=== PATIENT | female | born 1985 | race Caucasian/White ===

== ENCOUNTER 2023-07-10 11:46 | Outpatient (REF) | payer BC, SELFPAY ==
[2023-07-17 13:11] LABS: Age Gdln ACOG Testing Note (.); HPV Aptima Negative (Negative); IGP, Aptima HPV, rfx 16/18,45 Note (.)
== END 2023-07-11 11:47 | disposition home or self-care (01) ==
LOC: LAB 11:46
PROVIDERS: PCP Family Medicine; Visit Provider Obstetrics & Gynecology
DX: R87.612 Low grade squamous intraepithelial lesion on cytologic smear of cervix (LGSIL) (principal)
CPT/HCPCS: 87624; G0145

== ENCOUNTER 2023-12-04 21:07 | Outpatient (REF) | payer OTHER, SELFPAY ==
[2023-12-11 13:07] LABS: Age Gdln ACOG Testing Note (.); HPV Aptima Negative (Negative); IGP, Aptima HPV, rfx 16/18,45 Note (.)
== END 2023-12-04 21:08 | disposition home or self-care (01) ==
LOC: LAB 21:07
PROVIDERS: PCP Family Medicine; Visit Provider Obstetrics & Gynecology
DX: Z01.419 Encounter for gynecological examination (general) (routine) without abnormal findings (principal); R87.610 Atypical squamous cells of undetermined significance on cytologic smear of cervix (ASC-US)
CPT/HCPCS: 87624; G0145

== ENCOUNTER 2024-06-24 19:43 | Outpatient (REF) | payer OTHER, SELFPAY ==
--- OUTSIDE RECORDS SUMMARY | 2024-06-24 19:47 | XMS_ITS | CCD ---
Author Organization [facility] Care Team Providers Care Ash Handler Name Role Phone Fabio LEDESMA, Tamera Schrader Primary Care Provider [phone] FABIO, DR FUNES Primary Care Unavailable JANET ., DR BARRIENTOS Admitting Unavailable JANET ., DR BARRIENTOS Consulting Unavailable JANET ., DR BARRIENTOS Attending Unavailable FABIO, DR FUNES Primary Care Unavailable JANET ., DR BARRIENTOS Admitting Unavailable JANET ., DR BARRIENTOS Consulting Unavailable AJNET ., DR BARRIENTOS Attending Unavailable TORSTEN BERKOWITZ Attending Unavailable GORDON ROGERS Referring Unavailab TAMERA Rosenberg Primary Care Unavailable Tamera Mccarthy MD Primary Care Provider [phone] FANI ABEBE Referring Unavailable FABIO [facility] Primary Care Unavailable FABIO [facility] Referring Unavailable FLOYD GONZALES Attending Unavailable GORDON ROGERS Attending Unavailab GORDON Metcalf Referring Unavailab GORDON Metcalf Referring Unavailab ASIYA Valero Attending Unavailable MARLA VIDES Attending Unavailable Medications Current Medications Medication Drug Class(es) Dates Sig (Normalized) Sig (Original) baclofen 20 mg oral tablet (2 sources) gamma-Aminobutyri c Acid-ergic Agonist Start: 03-16-2019 take 1 tablet by mouth twice daily baclofen (LIORESAL) 20 MG tablet Take 1 tablet by mouth 2 times daily 20 tablet 0 03/16/2019 Active Start: 06-20-2018 take 1 tablet by jagdish th once daily as needed for muscle spasms Baclofen 5 MG TABS Indications: Arthralgia of left temporomandibular joint Take 5 mg by mouth nightly as needed (spasm) 20 tablet 0 06/20/2018 Active calcium carbonate 500 mg chewable tablet (1 source) calcium carbonat e (TUMS) 200 mg elemental (500 mg) chewable tablet Chew 1 tablet (200 mg total) and swallow in the morning. 0 Active dicyclomine hydrochloride 10 mg oral capsule (1 source) Anticholinergic Start: 4 take 1 capsule by mouth four times daily before mealtime dicyclomine (BENTYL) 10 mg capsule Indications: Irritable bowel syndrome, unspecified type Take 1 capsule (10 mg total) by mouth 4 (four) times a day before meals and nightly. 60 capsule 1 02/08/2024 Active Problems Problem Classification Problem Date Documented Da te Episodic/Chronic Abdominal pain (1 source) Abdominal pain Onset: 4 Episodic Cancer of other female genital organs (2 sources) Atypical squamous cells of undetermined significance on cytologic smear of vagina (ASC-US); Translations: [Low grade squamous intraepithelial lesion on cytologic smear of vagina (LGSIL)] Onset: 2 Episodic Esophageal disorders (1 source) Gastroesophageal reflux disease; Translations: [Gastro-esophageal reflux disease without esophagitis] 02-08-2024 Chronic Fever of unknown origin (1 source) Fever, unspecified; Translations: [Fever, unspecified] Onset: 4 Episodic Immunizations and screening for infectious disease (5 sources) Encounter for screening for human papillomavirus (HPV); Translations: [ENC SCREENING HUMAN PAPILLOMAVIRUS] Onset: 2 Episodic Other gastrointestinal disorders (1 source) Irritable bowel syndrome; Translations: [Irritable bowel syndrome without diarrhea] 02-08-2024 Chronic Other gastrointestinal disorders (1 source) Heartburn Onset: 4 Episodic Other gastrointestinal disorders (1 source) Abdominal bloating; Translations: [Abdominal distension (gaseous)] 02-08-2024 Episodic Other screening for suspected conditions (not mental disorders or infectious disease) (4 sources) Encounter for screening for malignant neoplasm of cervix; Translations: [ENC SCREENING MALIG NEOPLASM CERV] Onset: 3 Episodic Unclassified (1 source) BOWEL CHANGES Onset: 4 Unclassified (1 source) Bloated Onset: 4 Results Test Name Value Interpretation Reference Range Facility CBC with Diffon 05-01-2024 Abs. Basophil <0.03 Normal 0.00-0.20 [facility] Comment on above: Performed By: #### C P, CDP #### [address] [place] [address] Mucking Machine Operator: Kendrick Elena MD Abs. Eosinophil <0.03 Normal 0.00-0.44 [facility] Comment on above: Performed By: #### C P, CDP #### [address] [place], [place] [address] Mucking Machine Operator: Kendrick Elena MD Abs.Imm.Granulocyte <0.03 Normal 0.00-0.30 [facility] Comment on above: Performed By: #### C P, CDP #### [address] [place] [address] Mucking Machine Operator: Kendrick Elena MD Abs.Neutrophil (Seg) 6.60 k/uL Normal 1.50-8.10 [facility] Comment on above: Performed By: #### C P, CDP #### [address] [place] [id number] Mucking Machine Operator: Kendrick Elena MD Basophils/100 WBC (Bld) 0 % Normal 0-2 [facility] Comment on above: Performed By: #### C P, CDP #### [address] [place], [facility] Mucking Machine Operator: Kendrick Elena MD Eosinophils/100 WBC (Bld) 0 % Low 1-4 [facility] Comment on above: Performed By: #### C P, CDP #### [address] [place] [address] Mucking Machine Operator: Kendrick Elena MD Erythrocyte distribution width (RBC) [Ratio] 12.3 % Normal 11.8-14.4 [facility] Comment on above: Performed By: #### C P, CDP #### [place] [address] [place], [place] [id number] Mucking Machine Operator: Kendrick Elena MD Hematocrit (Bld) [Volume fraction] 40.7 % Normal 36.3-47.1 [facility] Comment on above: Performed By: #### C P, CDP #### [facility] [address] [place], [place] [phone] Mucking Machine Operator: Kendrick Elena MD Hemoglobin (Bld) [Mass/Vol] 13.9 g/dL Normal 11.9-15.1 [facility] Comment on above: Performed By: #### C P, CDP #### [address] [place], [place] [id number] Mucking Machine Operator: Kendrick Elena MD Immature granulocytes/100 WBC (Bld) 0 % Normal 0 [facility] Comment on above: Performed By: #### C P, CDP #### [address] [place], [facility] Mucking Machine Operator: Kendrick Elena MD Lymphocytes (Bld) [#/Vol] 1.29 10*3/uL Normal 1.10-3.70 [facility] Comment on above: Performed By: #### C P, CDP #### [address] [place], [facility] Mucking Machine Operator: Kendrick Elena MD Lymphocytes/100 WBC (Bld) 15 % Low 24-43 [facility] Comment on above: Performed By: #### C P, CDP #### [facility] [address] [place], [facility] Mucking Machine Operator: Kendrick Elena MD MCH (RBC) [Entitic mass] 32.0 pg Normal 25.2-33.5 [facility] Comment on above: Performed By: #### C P, CDP #### [address] [place], [facility] Mucking Machine Operator: Kendrick Elena MD MCHC (RBC) [Mass/Vol] 34.2 g/dL Normal 28.4-34.8 [facility] Comment on above: Performed By: #### C P, CDP #### [facility] [address] [place], [place] [phone] Mucking Machine Operator: Kendrick Elena MD MCV (RBC) [Entitic vol] 93.6 fL Normal 82.6-102.9 [facility] Comment on above: Performed By: #### C P, CDP #### [facility] [address] [place] [address] Mucking Machine Operator: Kendrick Elena MD Monocytes (Bld) [#/Vol] 0.71 10*3/uL Normal 0.10-1.20 [facility] Comment on above: Performed By: #### C P, CDP #### [address] [place], [place] [phone] Mucking Machine Operator: Kendrick Elena MD Monocytes/100 WBC (Bld) 8 % Normal 3-12 [facility] Comment on above: Performed By: #### C P, CDP #### [address] [place], [place] [phone] Mucking Machine Operator: Kendrick Elena MD Neutrophil (Seg) 77 % High 36-65 [facility] Comment on above: Performed By: #### C P, CDP #### [address] [place], [place] [phone] Mucking Machine Operator: Kendrick Elena MD NRBC Automated 0.0 per 100 WBC Normal 0.0 [facility] Comment on above: Performed By: #### C P, CDP #### [facility] [address] [place] [address] Mucking Machine Operator: Kendrick Elena MD Platelet mean volume (Bld) [Entitic vol] 9.9 fL Normal 8.1-13.5 [facility] Comment on above: Performed By: #### C P, CDP #### [facility] [address] [place], [place] [phone] Mucking Machine Operator: Kendrick Elena MD Platelets (Bld) [#/Vol] 232 10*3/uL Normal 138-453 [facility] Comment on above: Performed By: #### C P, CDP #### [facility] [address] [place], [place] [phone] Mucking Machine Operator: Kendrick Elena MD RBC (Bld) [#/Vol] 4.35 10*6/uL Normal 3.95-5.11 [facility] Comment on above: Performed By: #### C P, CDP #### [facility] [address] [place], [place] [phone] Mucking Machine Operator: Kendrick Elena MD WBC (Bld) [#/Vol] 8.7 10*3/uL Normal 3.5-11.3 [facility] Comment on above: Performed By: #### C P, CDP #### [facility] [address] [place], [place] [phone] Mucking Machine Operator: Kendrick Elena MD Comp Metabolic Profon 2023 Albumin [Mass/Vol] 4.3 g/dL Normal 3.5-5.2 [facility] Comment on above: Performed By: #### C P, CDP #### [facility] [address] [place], [place] [phone] Mucking Machine Operator: Kendrick Elena MD Albumin/Glob Ratio 1.6 Normal 1.0-2.5 [facility] Comment on above: Performed By: #### C P, CDP #### [facility] [address] [place] [address] Mucking Machine Operator: Kendrick Elena MD Alkaline Phos 54 U/L Normal 35-104 [facility] Comment on above: Performed By: #### C P, CDP #### [facility] [address] [place], [place] [phone] Mucking Machine Operator: Kendrick Elena MD ALT [Catalytic activity/Vol] 14 U/L Normal 5-33 [facility] Comment on above: Performed By: #### C P, CDP #### [facility] [address] [place], [place] [address] Mucking Machine Operator: Kendrick Elena MD Anion gap [Moles/Vol] 9 mmol/L Normal 9-17 [facility] Comment on above: Performed By: #### C P, CDP #### [facility] [address] [place], [place] [phone] Mucking Machine Operator: Kendrick Elena MD AST [Catalytic activity/Vol] 16 U/L Normal <32 [facility] Comment on above: Performed By: #### C P, CDP #### [facility] [address] [place], [place] [phone] Mucking Machine Operator: Kendrick Elena MD Bilirubin [Mass/Vol] 0.9 mg/dL Normal 0.3-1.2 [facility] Comment on above: Performed By: #### C P, CDP #### [facility] [address] [place], [place] [phone] Mucking Machine Operator: Kendrick Elena MD BUN/CRE Ratio 11 Normal 9-20 [facility] Comment on above: Performed By: #### C P, CDP #### [facility] [address] [place], [place] [phone] Mucking Machine Operator: Kendrick Elena MD Calcium [Mass/Vol] 9.0 mg/dL Normal 8.6-10.4 [facility] Comment on above: Performed By: #### C P, CDP #### [facility] [address] [place], [place] [phone] Mucking Machine Operator: Kendrick Elena MD Chloride [Moles/Vol] 102 mmol/L Normal 98-107 [facility] Comment on above: Performed By: #### C P, CDP #### [facility] [address] [place] [address] Mucking Machine Operator: Kendrick Elena MD CO2 [Moles/Vol] 29 mmol/L Normal 20-31 [facility] Comment on above: Performed By: #### C P, CDP #### [facility] [address] [place] [address] Mucking Machine Operator: Kendrick Elena MD Creatinine [Mass/Vol] 0.9 mg/dL Normal 0.5-0.9 [facility] Comment on above: Performed By: #### C P, CDP #### [facility] [address] [place] [address] Mucking Machine Operator: Kendrick Elena MD GFR/1.73 sq M.predicted among non-blacks MDRD (S/P/Bld) [Vol rate/Area] 82 mL/min/{1.73_m2} Normal >60 [facility] Comment on above: Result Comment: These results are not intended for use in patients <18 years of age. eGFR results are calculated without a race factor using the 2020 CKD-EPI equation. Careful clinical correlation is recommended, particularly when comparing to results calculated using previous equations. The CKD-EPI equation is less accurate in patients with extremes of muscle mass, extra-renal metabolism of creatine, excessive creatine ingestion, or following therapy that affects renal tubular secretion. Performed By: #### C P, CDP #### [facility] [address] [place] [address] Mucking Machine Operator: Kendrick Elena MD Glucose [Mass/Vol] 100 mg/dL High 70-99 [facility] Comment on above: Performed By: #### C P, CDP #### [facility] [address] [place] [address] Mucking Machine Operator: Kendrick Elena MD Potassium [Moles/Vol] 4.2 mmol/L Normal 3.7-5.3 [facility] Comment on above: Performed By: #### C P, CDP #### [facility] [address] [place] [address] Mucking Machine Operator: Kendrick Elena MD Protein [Mass/Vol] 7.0 g/dL Normal 6.4-8.3 [facility] Comment on above: Performed By: #### C P, CDP #### [facility] [address] [place] [address] Mucking Machine Operator: Kendrick Elena MD Sodium [Moles/Vol] 140 mmol/L Normal 135-144 [facility] Comment on above: Performed By: #### C P, CDP #### [facility] [address] [place] [address] Mucking Machine Operator: Kendrick Elena MD Urea nitrogen [Mass/Vol] 10 mg/dL Normal 6-20 [facility] Comment on above: Performed By: #### C P, CDP #### [facility] [address] [place] [address] Mucking Machine Operator: Kendrick Elena MD CT [facility] ABDOMEN PELVIS WO IV CONTRAST EXAM: CT ABDOMEN PELVIS WO IV CONTRAST History: RLQ abdominal pain; history of IBS Technique: Multiple contiguous axial images were obtained of the abdomen and pelvis from the level of the lung bases through the ischial tuberosities without IV contrast. Oral contrast was administered. Multiplanar reformats were obtained. All CT scans at this facility use dose modulation, iterative reconstruction, and/or weight based dosing when appropriate to reduce radiation dose to as low as reasonably achievable. Comparison: CT abdomen pelvis August 28, 2022 Findings: Lung bases are clear. Lack of intravenous contrast precludes optimal evaluation of the abdominal and pelvic viscera. The unenhanced liver, gallbladder, spleen, stomach, pancreas, and adrenal glands appear within normal limits. The unenhanced kidneys appear within normal limits. No urinary tract calculi or hydronephrosis. Urinary bladder is well distended. The uterus is absent. Abdominal aorta is nonaneurysmal. No retroperitoneal or abdominal/pelvic lymphadenopathy. No small bowel obstruction. No overt colonic mass or pericolonic inflammation. No findings of acute appendicitis. No free fluid or free air. No acute osseous abnormality. IMPRESSION: No acute abdominopelvic process. ELECTRONICALLY SIGNED BY: Heri Kern DO Normal Not Available XR ABDOMEN 2 VIEWon 01-17-20 24 XR ABDOMEN 2 VIEW EXAM: XR ABDOMEN 2 VIEW DATE: 01/17/2024 3:39 PM CLINICAL HISTORY: RLQ pain, right flank pain. COMPARISON: Abdominal series with chest 03/18/2021. TECHNIQUE: Three supine radiographs of the abdomen and pelvis were obtained. FINDINGS: A few small rounded calcifications in the pelvis are consistent with phleboliths, unchanged from 03/18/2021. There is no evidence of obstruction, significant constipation, abnormal bowel dilatation, pneumoperitoneum, or other pathologic calcifications identified. The visualized lung bases are clear. IMPRESSION: NO ACUTE OR SIGNIFICANT CHANGE FROM 03/18/2021 IDENTIFIED. ELECTRONICALLY SIGNED BY: Zenon Lloyd MD Normal Not Available BI MAMMOGRAM SCREENING TOMOS YNTHESIS BILATERALon 11-22-2023 BI MAMMOGRAM SCREENING TOMOSYNTHESIS BILATERAL This is a summary report. The complete report is available in the patient's medical record. If you cannot access the medical record, please contact the sending organization for a detailed fax or copy. EXAMINATION: BI MAMMOGRAM SCREENING TOMOSYNTHESIS BILATERAL CLINICAL HISTORY: screening COMPARISON: November 17, 2022 . RESULT: Digital mammography and 3D tomosynthesis of bilateral breasts was performed. There are scattered areas of fibroglandular density. There is no suspicious mass, asymmetry, architectural distortion, or calcification. Overall appearance stable. IMPRESSION: BIRADS 1 - Negative. Follow-up: Routine Screening Mamm . Board Certified Radiologists. Accredited by the ACR and FDA. MAMMOGRAPHY IS VERY IMPORTANT TO YOUR HEALTH. THE [employer] GUIDELINES RECOMMEND THAT WOMEN 40 YEARS OF AGE AND OLDER SHOULD HAVE A MAMMOGRAM EVERY YEAR. A REMINDER LETTER WILL BE SENT AT THE APPROPRIATE TIME. THIS FACILITY UTILIZES A REMINDER SYSTEM TO ENSURE ALL PATIENTS RECEIVE REMINDER NOTIFICATIONS AT THE APPROPRIATE TIME BASED ON THE RECOMMENDATIONS OF THIS EXAM. THIS INCLUDES REMINDERS FOR ROUTINE SCREENING MAMMOGRAMS, DIAGNOSTIC MAMMOGRAMS IN WHICH THE PATIENT IS ASKED TO RETURN FOR ADDITIONAL VIEWS, OR OTHER BREAST IMAGING INTERVENTIONS WHEN APPROPRIATE. THE PATIENT WILL BE PLACED IN THE APPROPRIATE REMINDER SYSTEM INCLUDING A REMINDER AT THE APPROPRIATE TIME FOR ANY PENDING ADDITIONAL VIEWS. TRANSCRIBED BY: ELECTRONICALLY SIGNED BY: Kuldip Mccormick MD Normal Not Available Pap IG, rfx Aptima HPV, rfx 16/18,45on 01-16-2023 . . Normal [facility] Comment on above: Result Comment: Perf ormed at: WB Performed By: #### P APHR2A #### [facility] [address] [place] [address] [address] Mat Stokes DIAGNOSIS: Comment Abnormal [facility] Comment on above: Result Comment: EPIT HELIAL CELL ABNORMALITY. LOW GRADE SQUAMOUS INTRAEPITHELIAL LESION (LSIL). Performed at: WB Performed By: #### P APHR2A #### [facility] [address] [place] [address] [address] Mat Stokes Electronically signed by: Comment Normal [facility] Comment on above: Result Comment: Marci Clinton MD, Pathologist Performed at: WB Performed By: #### P APHR2A #### [facility] [address] [place] [address] [address] Mat Stokes HPV Aptima Negative Normal Negative [facility] Comment on above: Result Comment: This nucleic acid amplification test detects fourteen high-risk HPV types (16,18,31,33,35,39,45,51,52,56,58,59,66,68) without differentiation. Performed at: =G Performed By: #### P APHR2A #### [facility] [address] [place] [address] [address] Mat Stokes HPV Genotype Reflex Comment Normal [facility] Comment on above: Result Comment: Crit eria not met, HPV Genotype not performed. Performed at: WB Performed By: #### P APHR2A #### [facility] [address] [place] [address] [address] Mat Stokes Methodology: Comment Normal [facility] Comment on above: Result Comment: This liquid based ThinPrep(R) pap test was screened with the use of an image guided system. Performed at: WB Performed By: #### P APHR2A #### [facility] [address] [place] [address] [address] Mat Stokes Note: Comment Normal [facility] Comment on above: Result Comment: The Pap smear is a screening test designed to aid in the detection of premalignant and malignant conditions of the uterine cervix. It is not a diagnostic procedure and should not be used as the sole means of detecting cervical cancer. Both false-positive and false-negative reports do occur. . Performed at: WB Performed By: #### P APHR2A #### [facility] [address] [place], [place] [address] Dr. Mat Stokes Pathologist Provided ICD10 Comment Normal [facility] Comment on above: Result Comment: [id number] Performed at: WB Performed By: #### P APHR2A #### [facility] [address] [place], [place] [address] Dr[address] Mat Stokes Performed by: Comment Normal [facility] Comment on above: Result Comment: Caitlin Jarquin, Rip Saw Operator (ASCP) Performed at: WB Performed By: #### P APHR2A #### [facility] [address] [place], [place] [address] Dr. Mat Stokes Specimen adequacy: Comment Normal [facility] Comment on above: Result Comment: Sati sfactory for evaluation. No endocervical component is identified. Performed at: WB Performed By: #### P APHR2A #### [facility] [address] [place], [place] [address] Dr. Mat Stokes SCREENING MAMMOGRAM W/MUSA, BILATERAL*on 11-17-2022 SCREENING MAMMOGRAM W/MUSA, BILATERAL* COMPARISON: Dating back to November 09, 2021 and November 16, 2020. TECHNIQUE: 2D and 3D Tomosynthesis of the right and left breasts was performed. FINDINGS: Breast composition demonstrates heterogeneous dense parenchyma. No suspicious microcalcifications, dominant mass lesions, or distortion is present. IMPRESSION: BI-RADS 1- Negative Mammogram COMMENT: Given dense breast tissue, recommend close correlation with self-breast and clinical exam findings. If any new symptoms or signs present clinically, recommend ultrasound to complement mammography. Board Certified Radiologist. Accredited by the ACR and FDA. MAMMOGRAPHY IS VERY IMPORTANT TO YOUR HEALTH. THE CURRENT [employer] GUIDELINES RECOMMENDS ANNUAL MAMMOGRAPHY BEGINNING AT AGE 40 THIS FACILITY USES A REMINDER SYSTEM TO ENSURE ALL PATIENTS RECEIVE REMINDER NOTIFICATIONS AT THE APPROPRIATE TIME BASED ON THE RECOMMENDATIONS OF THIS EXAM. Report reported and signed by Kuldip Mccormick on 11/21/2022 0859 Normal [facility] Last Repairer US Thyroidon 11-03-2022 US Thyroid FINDINGS: Right Lobe: 5.0 x 1.3 x 1.4 cm Left Lobe: 4.4 x 1.6 x 1.2 cm Isthmus (Thickness) 2mm Normal thyroid volume. No suspicious nodule or mass. Several millimeter 3-5 mm cysts, benign appearance. Non-specific left cervical lymph node. IMPRESSION: Normal thyroid volume, no suspicious nodule or mass. RECOMMENDATIONS CANCER RISK (ACR TI-RADS 2018) TR1: no FNA required TR1: 0.3% TR2: no FNA required TR2: 1.5 % TR3>: 1.5 cm follow up, >2.5 cm FNA TR3: 4.8 % Follow up 1, 3, 5 years TR4:>1.0 cm follow up >1.5 cm FNA TR4: 9.1 % Follow up: 1, 2, 3 and 5 years TR5:> 0.5 cm follow up, >1.0 cm FNA TR5: 35% Annual follow up for up to 5 years Biopsy is recommended for suspicious lesions (TR3-TR5) with the above size criteria. If there are multiple nodules, the two with the highest ACR TI-RADS grades should be sampled (rather than the two largest) Interval enlargement on follow up is felt to be significant if there is a increase of 20% and 2 mm in two dimensions, or a 50% increase in volume. If the ACR TI-RAD level increases between scans, and interval scan the following year is again recommended. Report reported and signed by Kuldip Mccormick on 11/03/2022 1038 Normal [facility] Specialist CBC with Auto Differentialon 08-29-2022 Absolute Eos # 0.04 [email or web address] Absolute Immature Granulocyte [facility] Absolute Lymph # 2.38 [facility] Absolute [place] # 0.56 [facility] Basophils Absolute [facility] Basophils/100 WBC (Bld) 0 % 0 - 2 % [facility] Eosinophils/100 WBC (Bld) 1 % 1 - 4 % [facility] Hematocrit (Bld) [Volume fraction] 40.2 % 36.3 - 47.1 % [facility] Hemoglobin (Bld) [Mass/Vol] 13.8 g/dL 11.9 - 15.1 g/dL [facility] Immature granulocytes/100 WBC (Bld) 0 % 0 [facility] Interpretation and review of laboratory results Abnormal [facility] Lymphocytes/100 WBC (Bld) 34 % 24 - 43 % [facility] MCH (RBC) [Entitic mass] 32.0 pg 25.2 - 33.5 pg [facility] [facility] MCHC (RBC) [Mass/Vol] 34.3 g/dL 28.4 - 34.8 g/dL [facility] MCV (RBC) [Entitic vol] 93.3 fL 82.6 - 102.9 fL [facility] Monocytes/100 WBC (Bld) 8 % 3 - 12 % [facility] NRBC Automated 0.0 0.0 per 100 WBC [facility] Platelet distribution width (Bld) [Ratio] 11.6 % Low 11.8 - 14.4 % [facility] Platelet mean volume (Bld) [Entitic vol] 9.6 fL 8.1 - 13.5 fL [facility] Platelets (Bld) [#/Vol] 291 10*3/uL [facility] RBC (Bld) [#/Vol] 4.31 10*6/uL 3.95 - 5.1 1 m/uL [facility] Segmented neutrophils/100 WBC (Bld) 57 % 36 - 65 % [facility] Segs Absolute 3.93 [facility] WBC (Bld) [#/Vol] 6.9 10*3/uL [facility] Comprehensive Metabolic Pane norma 08-29-2022 Albumin [Mass/Vol] 4.6 g/dL 3.5 - 5.2 g/dL [facility] Albumin/Globulin [Mass ratio] 1.9 {ratio} 1 - 2.5 [facility] ALP (Bld) [Catalytic activity/Vol] 50 U/L 35 - 104 U/L [facility] ALT [Catalytic activity/Vol] 11 U/L 5 - 33 U/L [facility] Anion gap [Moles/Vol] 11 mmol/L 9 - 17 mmol/L [facility] AST [Catalytic activity/Vol] 16 U/L NINF - 32 U/L [facility] Bilirubin [Mass/Vol] 0.9 mg/dL 0.3 - 1 .2 mg/dL [facility] Calcium [Mass/Vol] 9.1 mg/dL 8.6 - 10. 4 mg/dL [facility] Chloride [Moles/Vol] 103 mmol/L 98 - 10 7 mmol/L [facility] CO2 [Moles/Vol] 24 mmol/L 20 - 31 mmol/L [facility] Creatinine [Mass/Vol] 0.78 mg/dL 0.5 - 0.9 mg/dL [facility] GFR/1.73 sq M.predicted MDRD (S/P/Bld) [Vol rate/Area] - PINF [facility] Comment on above: Effective Aug 21, 2022 These results are not intended for use in patients <18 years of age. eGFR results are calculated without a race factor using the 2020 CKD-EPI equation. Careful clinical correlation is recommended, particularly when comparing to results calculated using previous equations. The CKD-EPI equation is less accurate in patients with extremes of muscle mass, extra-renal metabolism of creatine, excessive creatine ingestion, or following therapy that affects renal tubular secretion. Glucose [Mass/Vol] 94 mg/dL 70 - 99 mg/dL [facility] Potassium [Moles/Vol] 3.9 mmol/L 3.7 - 5.3 mmol/L [facility] Protein [Mass/Vol] 7.0 g/dL 6.4 - 8.3 g/dL [facility] Sodium [Moles/Vol] 138 mmol/L 135 - 144 mmol/L [facility] Urea nitrogen (BldV) [Mass/Vol] 13 mg/dL 6 - 20 mg/dL [facility] Urea nitrogen/Creatinine (Bld) [Mass ratio] 17 9 - 20 [facility] Pap IG,rfx Aptima HPV all pt hon 07-08-2022 . . Normal [facility] Comment on above: Performed By: #### P [id number] #### [facility] [address] [address] [address] Mat Stokes DIAGNOSIS: Comment Abnormal [facility] Comment on above: Result Comment: EPIT HELIAL CELL ABNORMALITY. ATYPICAL SQUAMOUS CELLS OF UNDETERMINED SIGNIFICANCE (ASC-US). Performed By: #### P [id number] #### [facility] [address] [address] [address] Mat Stokes Electronically signed by: Comment Normal [facility] Comment on above: Result Comment: Marci Clinton MD, Pathologist Performed By: #### P [id number] #### [facility] [address] [place] [address] Dr. Mat Stokes HPV Aptima Negative Normal Negative [facility] Comment on above: Result Comment: This nucleic acid amplification test detects fourteen high-risk HPV types (16,18,31,33,35,39,45,51,52,56,58,59,66,68) without differentiation. Performed By: #### P [id number] #### [facility] [address] [place] [address] Dr. Mat Stokes Methodology: Comment Normal [facility] Comment on above: Result Comment: This liquid based ThinPrep(R) pap test was screened with the use of an image guided system. Performed By: #### P [id number] #### [facility] [address] [place] [address] Dr. Mat Stokes Note: Comment Normal [facility] Comment on above: Result Comment: The Pap smear is a screening test designed to aid in the detection of premalignant and malignant conditions of the uterine cervix. It is not a diagnostic procedure and should not be used as the sole means of detecting cervical cancer. Both false-positive and false-negative reports do occur. . Performed By: #### P [id number] #### [facility] [address] [place] [address] Dr. Mat Stokes Pathologist Provided ICD10 Comment Normal [facility] Comment on above: Result Comment: [id number]. [id number] Performed By: #### P [id number] #### [facility] [address] [place] [address] Dr. Mat Stokes Performed by: Comment Normal [facility] Comment on above: Result Comment: Yaz Wilson, Rip Saw Operator (ASCP) Performed By: #### P [id number] #### [facility] [address] [place] [address] Dr. Mat Stokes Reflex Criteria: Comment Normal [facility] Comment on above: Result Comment: See below for HPV testing results. . Performed By: #### P [id number] #### [facility] [address] [address] [address] Mat Stokes Specimen adequacy: Comment Normal [facility] Comment on above: Result Comment: Sati sfactory for evaluation. No endocervical component is identified. Performed By: #### P [id number] #### [facility] [address] [place] [address] Dr. Mat Stokes Vital Signs Date Time Vital Sign Value Performing Clinician Faci lity 02-08-2024 13:37-0400 Body height 163.8 cm Torsten Berkowitz APRN-AIR HOLE DRILLER Work Phone: [facility] 02-08-2024 13:37-0400 Body mass index (BMI) [Ratio] 25.86 kg/m2 Torsten Berkowitz MEDICAL RECORDS TECHNICIAN-AIR HOLE DRILLER Work Phone: [facility] 02-08-2024 13:37-0400 Body weight 69.4 kg Torsten Berkowitz APRN-AIR HOLE DRILLER Work Phone: [facility] 02-08-2024 13:37-0400 Diastolic blood pressure 86 mm[Hg] Torsten Berkowitz APRN-AIR HOLE DRILLER Work Phone: [facility] 02-08-2024 13:37-0400 Systolic blood pressure 143 mm[Hg] Torsten Berkowitz MEDICAL RECORDS TECHNICIAN-AIR HOLE DRILLER Work Phone: [facility] Encounters Encounter Date Encounter Type Care Provider Facility Start: 05-30-2024 End: 05-30-2024 ambulatory MARLA VIDES Not Available Start: 05-01-2024 End: 05-01-2024 ambulatory FANI [facility] Start: 03-21-2024 End: 03-21-2024 ambulatory ASIYA JOYNER Not Available Start: 02-08-2024 End: 02-08-2024 ambulatory TORSTEN BERKOWITZ [facility] Start: 02-08-2024 End: 02-08-2024 Office outpatient new 30 minutes Torsten Berkowitz MEDICAL RECORDS TECHNICIAN-AIR HOLE DRILLER Work Phone: [facility] Comment on above: Irritable bowel synd tomeka, unspecified type (Primary Dx); Abdominal bloating; Gastroesophageal reflux disease, unspecified whether esophagitis present Start: 02-08-2024 End: 02-08-2024 ambulatory GORDON Mary HAHNENBURG Not Available Start: 01-17-2024 End: 01-17-2024 ambulatory GORDON A HABLADEENBURG Not Available Start: 12-04-2023 End: 12-04-2023 ambulatory FLOYD GONZALES Not Available Start: 11-22-2023 End: 11-22-2023 ambulatory TAMERA MCCARTHY Not Available Start: 01-08-2023 End: 01-08-[address] TAMERA MCCARTHY Facility:[facility]1 Start: 08-29-2022 End: 08-29-2022 Subsequent hospital visit by physician Tamera Mccarthy MD Work Phone: [facility] Start: 07-03-2022 End: 07-03-[address] TAMERA MCCARTHY Facility:[facility]1 Procedures Date Procedure Procedure Detail Performing Clinician Start: 08-29-2022 Comprehensive metabo lic panel Sophia Shipley MEDICAL RECORDS TECHNICIAN - RECREATION ESTABLISHMENT MANAGER Work Phone: Plan of Treatment Date Care Activity Detail Author Start: 08-11-2031 DTaP,Tdap and Td Vaccines (2 - Td or Tdap) DTaP,Tdap and Td Vaccines (2 - Td or Tdap) [facility] Start: 02-07-2025 Adult BMI Screening Adult BMI Screen ing [facility] Start: 02-07-2025 Tobacco Screening Tobacco Screening [facility] Start: 07-20-2023 COVID-19 Vaccine ( season) COVID-19 Vaccine ( season) [facility] Start: 06-19-2022 Influenza vaccination Flu vaccine (# 1) [facility] Start: 2013 Screening for malign ant neoplasm of cervix [facility] Start: 02-02-2004 Screening for malign ant neoplasm of cervix Pap smear [facility] Start: 2002 DTaP/Tdap/Td vaccine (1 - Tdap) DTaP/Tdap/Td vaccine (1 - Tdap) [facility] Start: 2001 Adult BMI Follow Up Plan Adult BMI Follow Up Plan [facility] Start: 2001 Hepatitis C screening Hepatitis C sc reen [facility] Start: 1998 HIV screening HIV screen [facility] Start: 1995 Depression Screen Depression Screen [facility] Start: 1995 Depression Screening Depression Scre ening [facility] Start: 02-02-1984 Varicella vaccine (1 of 2 - 2-dose childhood series) Varicella vaccine (1 of 2 - 2-dose childhood series) [facility] Start: 1983 COVID-19 Vaccine (#1) COVID-19 Vacci ne (#1) [facility] Immunizations Immunization Date Immunization Notes Care Provider Jammie [facility] 09-06-2021 influenza virus vaccine, unspecified formulation Tamera Mccarthy MD Work Phone: [facility] 09-19-2019 influenza virus vaccine, unspecified formulation Tamera Mccarthy MD Work Phone: [facility] Work Phone: 08-29-2018 influenza virus vaccine, unspecified formulation Tamera Mccarthy MD Work Phone: [facility] Payers Date Payer Category Payer Private Health Insurance [facility] [id number] 2023-Present [phone] [address] [address] [place] [address] [id number] 2023 Private Health Insurance [id number] 1983 Unknown [id number] 1983 Unknown [id number] .[id number] 1983 Unknown [id number] .2.1286 1983 Unknown [id number] [id number] .2.173 1983 Unknown [id number] .2.1259 1983 Unknown [id number] [id number] .2.1259 1983 Unknown [id number] [id number] .2.1259 1983 Unknown [id number] [id number] .2.1259 1983 Unknown [id number] [id number] .2.1259 1983 Unknown [id number] [id number] .2.1259 1983 Unknown [id number] .2.1259 1959 Unknown [id number] Social History Date Type Detail Facility Start: 06-20-2018 End: 02-08-2024 Tobacco smoking status SCIS Never smoked tobacco [facility] Phone: Start: 06-20-2018 End: 02-08-2024 Tobacco use and exposure Smokeless tobacco non-user [facility] [place] Phone: Start: 1985 Sex Assigned At Not on file [facility] [place] Phone: Start: 02-08-2024 Alcohol intake Lifetime non-d patel (finding) [facility] Start: 04-30-2019 End: 02-08-2024 History of Social function [facility] Start: 04-30-2019 End: 02-08-2024 Tobacco use panel [facility] Childcare Unknown [facility] History of Present illness Narrative 02-08-2024 Torsten Berkowitz, MEDICAL RECORDS TECHNICIAN-AIR HOLE DRILLER - 02/08/2024 2:00 PM EDT Note Date & Type Note Facility 02-08-2024 History of Present illness Narrative Images from the original note were not included. Chief Complaint: IBS History of Present Illness Sherry Moura is a 39 y.o. female who presents to the office with several GI complaints. She states she had an endoscopy 12 years ago and was diagnosed with IBS. For the past few months she has been having right upper quadrant pain on and off. The pain occurs randomly, not necessarily after eating. She states after eating her stomach feels full and bloated. She also reports acid reflux. She drinks 2-3 cups of coffee daily. She does not smoke or drink frequent alcohol. She was prescribed Protonix 40 mg daily and Pepcid by her family physician. She admits she does not like to take medication and she has not been taking this. She takes Tums OTC as needed. She states her stomach is sensitive. She avoids dairy as best as she can. She also reports intermittent constipation associated with abdominal pain that is relieved after she has a bowel movement. She is in [employer]. She reports pain in her right upper and lower back. She was in the CT scan today and felt a pulling sensation in her abdomen when she raised her hands above her head. She has been taking OTC pain medication for this the past few days. She denies any nausea, vomiting, unintentional weight loss, diarrhea or rectal bleeding. She has dicyclomine at home which she has been taking with relief. Abdominal ultrasound from 06/21/2023 revealed possible tiny polyp or calculus within the gallbladder. It was otherwise unremarkable. CT abdomen and pelvis 02/08/2024 was normal. Recent CBC, CMP and lipase were all within normal limits. Review of Systems Constitutional: Negative for fever and unexpected weight change. HENT: Negative for trouble swallowing. Respiratory: Negative for shortness of breath. Cardiovascular: Negative for chest pain. Gastrointestinal: Positive for abdominal pain and constipation. Negative for nausea, vomiting, diarrhea, blood in stool and black tarry stool. Abdominal bloating, GERD Genitourinary: Negative for dysuria and difficulty urinating. Musculoskeletal: Positive for back pain. Negative for gait problem. Skin: Negative for rash and wound. Neurological: Negative for dizziness, weakness and light-headedness. Hematological: Does not bruise/bleed easily. Psychiatric/Behavioral: Negative for confusion. Past Medical History: Diagnosis Date Chronic GERD Past Surgical History: Procedure Laterality Date [facility]COPY [facility] 12/2018December 2018 No Known Allergies Current Outpatient Medications: calcium carbonate (TUMS) 200 mg elemental (500 mg) chewable tablet, Chew 1 tablet (200 mg total) and swallow in the morning., Disp: , Rfl: dicyclomine (BENTYL) 10 mg capsule, Take 1 capsule (10 mg total) by mouth 4 (four) times a day before meals and nightly., Disp: 60 capsule, Rfl: 1 Social History Socioeconomic History Marital status: Spouse name: Not on file Number of children: Not on file Years of education: Not on file Highest education level: Not on file Occupational History Not on file Tobacco Use Smoking status: Never Smokeless tobacco: Never Vaping Use Vaping Use: Never used Substance and Sexual Activity Alcohol use: Never Drug use: Never Sexual activity: Defer Other Topics Concern Not on file Social History Narrative Not on file Social Determinants of Health Financial Resource Strain: Not on file Food Insecurity: No Food Insecurity (02/08/2024) Hunger Screening Food Insecurity - Worry: Never True Food Insecurity - Inability: Never True Transportation Needs: Not on file Physical Activity: Not on file Stress: Not on file Social Connections: Not on file Interpersonal Safety: Not on file Housing Instability: Not on file Family History Problem Relation Age of Onset Pancreatic cancer Father Melanoma Maternal Uncle Objective Physical Exam Constitutional: General: She is not in acute distress. Appearance: Normal appearance. She is not ill-appearing. HENT: Head: Normocephalic and atraumatic. Mouth/Throat: Mouth: Mucous membranes are moist. Eyes: Pupils: Pupils are equal, round, and reactive to light. Cardiovascular: Rate and Rhythm: Normal rate. Pulmonary: Effort: Pulmonary effort is normal. No respiratory distress. Abdominal: General: There is no distension. Palpations: Abdomen is soft. Tenderness: There is no abdominal tenderness. Musculoskeletal: General: Normal range of motion. Cervical back: Normal range of motion. Skin: General: Skin is warm and dry. Neurological: Mental Status: She is alert and oriented to person, place, and time. Mental status is at baseline. Vital Signs: Blood pressure 143/86, height 163.8 cm (5' 4.5 ), weight 69.4 kg (153 lb). Respiratory Source: No data recorded Admission Weight: Weight: 69.4 kg (153 lb) Labs No results found for: WBC , HGB , HCT , MCV , PLT No results found for: GLU , CALCIUM , NA , K , CO2 , CL , BUN , CREATININE No results found for: AMYLASE No results found for: LIPASE No results found for: ALT , AST , GGT , ALKPHOS , LABBILI No results found for: INR , PROTIME Imaging Abdominal ultrasound 06/21/2023: Result: Pancreas: Normal sonographic appearance of the visualized portions. Liver: Normal echogenicity, echotexture, surface contour. No focal lesion. Gallbladder: Tiny echogenic focus within the gallbladder measuring around 3 mm, which may represent tiny calculus or small polyp. Gallbladder otherwise unremarkable. Biliary Ducts: No intrahepatic or extrahepatic bile duct dilation. CBD measures 0.2 cm. Right Kidney: Imaged portions unremarkable. CT abdomen and pelvis 02/08/2024: Findings: Lung bases are clear. Lack of intravenous contrast precludes optimal evaluation of the abdominal and pelvic viscera. The unenhanced liver, gallbladder, spleen, stomach, pancreas, and adrenal glands appear within normal limits. The unenhanced kidneys appear within normal limits. No urinary tract calculi or hydronephrosis. Urinary bladder is well distended. The uterus is absent. Abdominal aorta is nonaneurysmal. No retroperitoneal or abdominal/pelvic lymphadenopathy. No small bowel obstruction. No overt colonic mass or pericolonic inflammation. No findings of acute appendicitis. No free fluid or free air. Assessment GERD Irritable bowel syndrome Muscle strain right back Plan GERD - limit caffeine intake, eat smaller meals, do not eat prior to bed, avoid spicy and acidic foods, pantoprazole 40 mg daily x8 weeks. If symptoms persist despite PPI therapy, recommend endoscopy. Abdominal bloating - keep food log, avoid dairy altogether if it bothers her, Gas-X OTC. IBS - 64 oz of water daily, high-fiber diet, exercise, continue Bentyl if helping. Muscle strain - rest, ice, Tylenol and Ibuprofen, massage. Evaluation included: Preparing to see the patient (e.g., review of tests) Obtaining and/or reviewing separately obtained history Performing a medically appropriate examination and/or evaluation Counseling and educating the patient/family/caregiver Referring and communicating with other health progressive care nurse Irritable bowel syndrome, unspecified type [K58.9] MIKO LINDSAY [facility] General Surgery [place] This note was created with the assistance of a speech recognition program. While intending to generate a timely document that accurately reflects the content of the visit, no guarantee can be provided that every grammatical or spelling mistake has been or will be identified or corrected. Thank you for your understanding. MIKO Lindsay 02/11/24 1245 documented in this encounter [facility] Clinical Note 08-28-2022 Note Date & Type Note Facility 08-28-2022 Note PROCEDURE: [facility] VCT 64, 5 mm slice axial images were acquired with coronal reconstruction through the abdomen and pelvis with and without contrast. HISTORY: RLQ pain, flank pain x 1 month, constipation FINDINGS: Large volume of stool occupies the ascending colon extending from the cecum located within the right mid and lower hemipelvis through the hepatic flexure normally located within the right upper quadrant. Stool tapers through the course of the transverse colon with minimal stool seen within the descending and sigmoid region displaced into the left hemipelvis due to mild bladder distention and stool filled cecum occupying the entire right hemipelvis. No ascites or pelvic fluid or free air. No normal or abnormal appearing appendix. Small bowel is without inflammatory changes. Unremarkable lung bases, Liver (mild fatty replaced), spleen (normal size), gallbladder, biliary tree, pancreas and adrenal glands. Normal kidneys, collecting systems and bladder. IMPRESSION: 1. Large volume of ascending colon stool including the cecum which occupies the entire right hemipelvis, no acute inflammatory changes, mass or bowel obstruction. Report reported and signed by Kuldip Mccormick on 08/29/2022 0736 [facility] Last Repairer Evaluation note Note Date & Type Note Facility Evaluation note Diagnosis Irritable bowel syndrome, unspecified type- Primary Abdominal bloating Flatulence, eructation, and gas pain Gastroesophageal reflux disease, unspecified whether esophagitis present documented in this encounter [facility] Instructions Note Date & Type Note Facility Instructions Not on filedocumented in this en counter [facility] Summary Purpose Family History No Family History Records FoundNo Family History Records FoundNo Family History Records FoundNo Family History Records FoundNo Family History Records Found Advance Directives No Advanced Directives Records FoundNo Advanced Directives Records FoundNo Advanced Directives Records FoundNo Advanced Directives Records FoundNo Advanced Directives Records Found Additional Source Comments Care Teams (unrecognized sec tion and content) Ash Handler Relationship Specialty Start Date End Date Tamera Mccarthy MD [address] [place] [address] PCP - General 06/20/18 Ash Handler Relationship Specialty Start Date End Date Tamera Mccarthy MD [address] [place] [address] PCP - General Family Medicine 02/08/24 INFORMATION SOURCE (unrecogn ized section and content) DATE CREATED AUTHOR 11/21/2022 [facility] dical Specialist DATE CREATED AUTHOR AUTHOR'S ORGANIZ ATION 01/18/2023 [facility] DATE CREATED AUTHOR AUTHOR'S ORGANIZ ATION 02/10/2024 [facility] DATE CREATED AUTHOR AUTHOR'S ORGANIZ ATION 05/02/2024 [facility] DATE CREATED AUTHOR AUTHOR'S ORGANIZ ATION 06/05/2024 [facility] dical Specialists EPIC Reason for Visit (unrecogniz ed section and content) Reason Comments BOWEL CHANGES IBS , REFERRED BY GUTIERREZ ROGERS, SODIUM CHLORITE OPERATOR, PT HAS [facility] Bloated Abdominal Pain Heartburn Specialty Diagnoses / Procedures Referred By Eron stubbs Referred To Contact General Surgery Diagnoses Irritable bowel syndrome, unspecified type Procedures MS OFFICE OUTPATIENT VISIT 60-74 MINS HIGH MDM AMB REFERRAL TO GENERAL SURGERY Gordon Rogers, MEDICAL RECORDS TECHNICIAN-AIR HOLE DRILLER [address] [place] [address] Brody Mccray MD [address] [place] [address] Referral ID Status Reason Start Date Expiration Date V isits Requested Visits Authorized [id number] Pending Review 01/17/2024 07/15/2024 1 1 FOR RECORDS PERTAINING TO PATIENTS WHO ARE OR HAVE BEEN ENROLLED IN A CHEMICAL DEPENDENCY/SUBSTANCEABUSE PROGRAM, SOME INFORMATION MAY BE OMITTED. This clinical summary was aggregated from multiple sources. Caution should be exercised in using it in the provision of clinical care. This summary normalizes information from multiple sources, and as a consequence, information in this document may materially change the coding, format and clinical context of patient data. In addition, data may be omitted in some cases. CLINICAL DECISIONS SHOULD BE BASED ON THE PRIMARY CLINICAL RECORDS. [facility] [employer] provides no warranty or guarantee of the accuracy or completeness of information in this document.
== END 2024-06-24 19:44 | disposition home or self-care (01) ==
LOC: LAB 19:43
PROVIDERS: PCP Family Medicine; Visit Provider Obstetrics & Gynecology
DX: Z01.419 Encounter for gynecological examination (general) (routine) without abnormal findings (principal)
CPT/HCPCS: 87624; 88175

== ENCOUNTER 2024-07-22 20:50 | Outpatient (REF) | payer OTHER, SELFPAY ==
--- OUTSIDE RECORDS SUMMARY | 2024-07-22 20:54 | XMS_ITS | CCD ---
Author Organization [facility] Care Team Providers Care Ocean Lifeguard Specialist Name Role Phone Fabio LEDESMA, [facility] Primary Care Provider [phone] FABIO, DR FUNES Primary Care Unavailable JANET ., DR BARRIENTOS Admitting Unavailable JANET ., DR BARRIENTOS Consulting Unavailable JANET ., DR BARRIENTOS Attending Unavailable FABIO, DR FUNES Primary Care Unavailable JANET ., DR BARRIENTOS Admitting Unavailable JANET ., DR BARRIENTOS Consulting Unavailable JANET ., DR BARRIENTOS Attending Unavailable TORSTEN BERKOWITZ Attending Unavailable GORDON ROGERS Referring Unavailab conner MCCARTHY [facility] Primary Care Unavailable Fabio LEDESMA [facility] Primary Care Provider [phone] FANI ABEBE Referring Unavailable FABIO [facility] Primary Care Unavailable FABIO [facility] Referring Unavailable FLOYD GONZALES Attending Unavailable GORDON ROGERS Attending Unavailab GORDON Metcalf Referring Unavailab GORDON Metcalf Referring Unavailab ASIYA Valero Attending Unavailable MARLA VIDES Attending Unavailable MARLA VIDES Attending Unavailable FLOYD GONZALES Attending Unavailable Medications Current Medications Medication Drug [...] Onset: 4 Unclassified (1 source) Bloated Onset: 03-22-202 4 Results Test Name Value Interpretation Reference Range Facility CBC with Diffon 05-01-2024 Abs. Basophil <0.03 Normal 0.00-0.20 [facility] Comment on above: Performed By: #### C P, CDP #### [facility] [address] [place], [place] [id number] Skate Boarder: Kendrick Elena MD Abs. Eosinophil <0.03 Normal 0.00-0.44 [facility] Comment on above: Performed By: #### C P, CDP #### [facility] [address] [place] [address] [place] [address] Skate Boarder: Kendrick Elena MD Abs.Imm.Granulocyte <0.03 Normal 0.00-0.30 [facility] Comment on above: Performed By: #### C P, CDP #### [address] [place], [place] [id number] Skate Boarder: Kendrick Elena MD Abs.Neutrophil (Seg) 6.60 k/uL Normal 1.50-8.10 [facility] Comment on above: Performed By: #### C P, CDP #### [address] [place], [place] [id number] Skate Boarder: Kendrick Elena MD Basophils/100 WBC (Bld) 0 % Normal 0-2 [facility] Comment on above: Performed By: #### C P, CDP #### [address] [place], [place] [id number] Skate Boarder: Kendrick Elena MD Eosinophils/100 WBC (Bld) 0 % Low 1-4 [facility] Comment on above: Performed By: #### C P, CDP #### [address] [place], [place] [id number] Skate Boarder: Kendrick Elena MD Erythrocyte distribution width (RBC) [Ratio] 12.3 % Normal 11.8-14.4 [facility] Comment on above: Performed By: #### C P, CDP #### [facility] [address] [place], [place] [id number] Skate Boarder: Kendrick Elena MD Hematocrit (Bld) [Volume fraction] 40.7 % Normal 36.3-47.1 [facility] Comment on above: Performed By: #### C P, CDP #### [address] [place], [place] [id number] Skate Boarder: Kendrick Elena MD Hemoglobin (Bld) [Mass/Vol] 13.9 g/dL Normal 11.9-15.1 [facility] Comment on above: Performed By: #### C P, CDP #### [address] [place], [place] [id number] Skate Boarder: Kendrick Elena MD Immature granulocytes/100 WBC (Bld) 0 % Normal 0 [facility] Comment on above: Performed By: #### C P, CDP #### [address] [place], [place] 867[address]83 Skate Boarder: Kendrick Elena MD Lymphocytes (Bld) [#/Vol] 1.29 10*3/uL Normal 1.10-3.70 [facility] Comment on above: Performed By: #### C P, CDP #### [address] [place], [place] [id number] Skate Boarder: Kendrick Elena MD Lymphocytes/100 WBC (Bld) 15 % Low 24-43 [facility] Comment on above: Performed By: #### C P, CDP #### [address] [place], [place] [id number] Skate Boarder: Kendrick Elena MD MCH (RBC) [Entitic mass] 32.0 pg Normal 25.2-33.5 [facility] Comment on above: Performed By: #### C P, CDP #### [address] [place] [address] Skate Boarder: Kendrick Elena MD MCHC (RBC) [Mass/Vol] 34.2 g/dL Normal 28.4-34.8 [facility] Comment on above: Performed By: #### C P, CDP #### [facility] [address] [place] [address] Skate Boarder: Kendrick Elena MD MCV (RBC) [Entitic vol] 93.6 fL Normal 82.6-102.9 [facility] Comment on above: Performed By: #### C P, CDP #### [address] [place], [facility]83 Skate Boarder: Kendrick Elena MD Monocytes (Bld) [#/Vol] 0.71 10*3/uL Normal 0.10-1.20 [facility] Comment on above: Performed By: #### C P, CDP #### [facility] [address] [place] [address] Dr. [place], [facility]83 Skate Boarder: Kendrick Elena MD Monocytes/100 WBC (Bld) 8 % Normal 3-12 [facility] Comment on above: Performed By: #### C P, CDP #### [address] [place], [place] [id number] Skate Boarder: Kendrick Elena MD Neutrophil (Seg) 77 % High 36-65 [facility] Comment on above: Performed By: #### C P, CDP #### [facility] [address] [place], [place] [id number] Skate Boarder: Kendrick Elena MD NRBC Automated 0.0 per 100 WBC Normal 0.0 [facility] Comment on above: Performed By: #### C P, CDP #### [facility] [address] [place], [place] 5000383 Skate Boarder: Kendrick Elena MD Platelet mean volume (Bld) [Entitic vol] 9.9 fL Normal 8.1-13.5 [facility] Comment on above: Performed By: #### C P, CDP #### [facility] [address] [place] [address] Skate Boarder: Kendrcik Elena MD Platelets (Bld) [#/Vol] 232 10*3/uL Normal 138-453 [facility] Comment on above: Performed By: #### C P, CDP #### [facility] [address] [place], [place] [id number] Skate Boarder: Kendrick Elena MD RBC (Bld) [#/Vol] 4.35 10*6/uL Normal 3.95-5.11 [facility] Comment on above: Performed By: #### C P, CDP #### [address] [place] [address] Skate Boarder: Kendrick Elena MD WBC (Bld) [#/Vol] 8.7 10*3/uL Normal 3.5-11.3 [facility] Comment on above: Performed By: #### C P, CDP #### [address] [place] [address] Skate Boarder: Kendrick Elena MD Comp Metabolic Profon 2023 Albumin [Mass/Vol] 4.3 g/dL Normal 3.5-5.2 [facility] Comment on above: Performed By: #### C P, CDP #### [address] [place] [address] Skate Boarder: Kendrick Elena MD Albumin/Glob Ratio 1.6 Normal 1.0-2.5 [facility] Comment on above: Performed By: #### C P, CDP #### [facility] [address] [place] [address] Skate Boarder: Kendrick Elena MD Alkaline Phos 54 U/L Normal 35-104 [facility] Comment on above: Performed By: #### C P, CDP #### [facility] [address] [place], [place] [id number] Skate Boarder: Kendrick Elena MD ALT [Catalytic activity/Vol] 14 U/L Normal 5-33 [facility] Comment on above: Performed By: #### C P, CDP #### [facility] [address] [place], [place] [id number] Skate Boarder: Kendrick Elena MD Anion gap [Moles/Vol] 9 mmol/L Normal 9-17 [facility] Comment on above: Performed By: #### C P, CDP #### [facility] [address] [place], [place] [address]83 Skate Boarder: Kendrick Elena MD AST [Catalytic activity/Vol] 16 U/L Normal <32 [facility] Comment on above: Performed By: #### C P, CDP #### [facility] [address] [place], [place] 114[address]83 Skate Boarder: Kendrick Elena MD Bilirubin [Mass/Vol] 0.9 mg/dL Normal 0.3-1.2 [facility] Comment on above: Performed By: #### C P, CDP #### [facility] [address] [place], [place] 134[address]83 Skate Boarder: Kendrick Elena MD BUN/CRE Ratio 11 Normal 9-20 [facility] Comment on above: Performed By: #### C P, CDP #### [facility] [address] [place], [place] 28[address]83 Skate Boarder: Kendrick Elena MD Calcium [Mass/Vol] 9.0 mg/dL Normal 8.6-10.4 [facility] Comment on above: Performed By: #### C P, CDP #### [facility] [address] [place], [place] [address]20[address]83 Skate Boarder: Kendrick Elena MD Chloride [Moles/Vol] 102 mmol/L Normal 98-107 [facility] Comment on above: Performed By: #### C P, CDP #### [facility] [address] [place] [address] Skate Boarder: Kendrick Elena MD CO2 [Moles/Vol] 29 mmol/L Normal 20-31 [facility] Comment on above: Performed By: #### C P, CDP #### [facility] [address] [place] [address] Skate Boarder: Kendrick Elena MD Creatinine [Mass/Vol] 0.9 mg/dL Normal 0.5-0.9 [facility] Comment on above: Performed By: #### C P, CDP #### [facility] [address] [place] [address] Skate Boarder: Kendrick Elena MD GFR/1.73 sq M.predicted among non-blacks MDRD (S/P/Bld) [Vol rate/Area] 82 mL/min/{1.73_m2} Normal >60 [facility] Comment on above: Result Comment: These results [...] Performed By: #### C P, CDP #### [facility] [address] [place] [address] Skate Boarder: Kendrick Elena MD Glucose [Mass/Vol] 100 mg/dL High 70-99 [facility] Comment on above: Performed By: #### C P, CDP #### [facility] [address] [place] [address] Skate Boarder: Kendrick Elena MD Potassium [Moles/Vol] 4.2 mmol/L Normal 3.7-5.3 [facility] Comment on above: Performed By: #### C P, CDP #### [facility] [address] [place] [address] Skate Boarder: Kendrick Elena MD Protein [Mass/Vol] 7.0 g/dL Normal 6.4-8.3 [facility] Comment on above: Performed By: #### C P, CDP #### [facility] [address] [place], [place] [address]3 Skate Boarder: Kendrick Elena MD Sodium [Moles/Vol] 140 mmol/L Normal 135-144 [facility] Comment on above: Performed By: #### C P, CDP #### [facility] [address] [place] [address] Skate Boarder: Kendrick Elena MD Urea nitrogen [Mass/Vol] 10 mg/dL Normal 6-20 [facility] Comment on above: Performed By: #### C P, CDP #### [facility] [address] [place] [address] Skate Boarder: Kendrick Elena MD CT ABDOM[facility] ABDOMEN PELVIS WO IV CONTRAST [...] IS VERY IMPORTANT TO YOUR HEALTH. THE [employer] GUIDELINES RECOMMEND THAT WOMEN 40 [...] HPV, rfx 16/18,45on 01-16-2023 . . Normal [facility] Comment on above: Result Comment: Perf ormed at: WB Performed By: #### P APHR2A #### [facility] [address] [address] [address] Mat Stokes DIAGNOSIS: Comment Abnormal [facility] Comment on above: Result Comment: EPIT HELIAL CELL ABNORMALITY. LOW GRADE SQUAMOUS INTRAEPITHELIAL LESION (LSIL). Performed at: WB Performed By: #### P APHR2A #### [facility] [address] [place] [address] Dr. Mat Stokes Electronically signed by: Comment Normal [facility] Comment on above: Result Comment: Marci Clinton MD, Pathologist Performed at: WB Performed By: #### P APHR2A #### [facility] [address] [address] [address] Mat Stokes HPV Aptima Negative Normal Negative [facility] Comment on above: Result Comment: This nucleic acid amplification test detects fourteen high-risk HPV types (16,18,31,33,35,39,45,51,52,56,58,59,66,68) without differentiation. Performed at: =G Performed By: #### P APHR2A #### [facility] [address] [place] [address] Dr. Mat Stokes HPV Genotype Reflex Comment Normal [facility] Comment on above: Result Comment: Crit eria not met, HPV Genotype not performed. Performed at: WB Performed By: #### P APHR2A #### [facility] [address] [address] [address] Mat Stokes Methodology: Comment Normal [facility] Comment on above: Result Comment: This liquid based ThinPrep(R) pap test was screened with the use of an image guided system. Performed at: WB Performed By: #### P APHR2A #### [facility] [address] [place] [address] Dr. Mat Stokes Note: Comment Normal [facility] Comment on above: Result Comment: The Pap smear is a screening test designed to aid in the detection of premalignant and malignant conditions of the uterine cervix. It is not a diagnostic procedure and should not be used as the sole means of detecting cervical cancer. Both false-positive and false-negative reports do occur. . Performed at: WB Performed By: #### P APHR2A #### [facility] [address] [address] [address] Mat Stokes Pathologist Provided ICD10 Comment Normal [facility] Comment on above: Result Comment: [id number] Performed at: WB Performed By: #### P APHR2A #### [facility] [id number] Mat Stokes Performed by: Comment Normal [facility] Comment on above: Result Comment: Caitlin Jarquin, Mobile Sales Technician (ASCP) Performed at: WB Performed By: #### P APHR2A #### [facility] [address] [address] [address] Mat Stokes Specimen adequacy: Comment Normal [facility] Comment on above: Result Comment: Sati sfactory for evaluation. No endocervical component is identified. Performed at: WB Performed By: #### P APHR2A #### [facility] [id number] Mat Stokes SCREENING MAMMOGRAM W/MUSA, BILATERAL*on [...] VERY IMPORTANT TO YOUR HEALTH. THE CURRENT [employer] GUIDELINES RECOMMENDS ANNUAL MAMMOGRAPHY BEGINNING AT AGE 40 THIS FACILITY USES A REMINDER SYSTEM TO ENSURE ALL PATIENTS RECEIVE REMINDER NOTIFICATIONS AT THE APPROPRIATE TIME BASED ON THE RECOMMENDATIONS OF THIS EXAM. Report reported and signed by Kuldip Mccormick on 11/21/2022 0859 Normal [facility] Air Hose Coupler US Thyroidon 11-03-2022 US Thyroid FINDINGS: Right [...] by Kuldip Mccormick on 11/03/2022 1038 Normal [facility] CBC with Auto Differentialon 08-29-2022 Absolute Eos # 0.04 [facility] Absolute Immature Granulocyte [facility] Absolute Lymph # 2.38 [facility] Absolute [place] # 0.56 [facility] [employer] [facility] Basophils Absolute [facility] Basophils/100 WBC (Bld) 0 % 0 - 2 % [facility] Eosinophils/100 WBC (Bld) 1 % 1 - 4 % [facility] Hematocrit (Bld) [Volume fraction] 40.2 % 36.3 - 47.1 % [facility] Hemoglobin (Bld) [Mass/Vol] 13.8 g/dL 11.9 - 15.1 g/dL [facility] Immature granulocytes/100 WBC (Bld) 0 % 0 [facility] Interpretation and review of laboratory results Abnormal [facility] Lymphocytes/100 WBC (Bld) 34 % 24 - 43 % [facility] MCH (RBC) [Entitic mass] 32.0 pg 25.2 - 33.5 pg [facility] MCHC (RBC) [Mass/Vol] 34.3 g/dL 28.4 - 34.8 g/dL [facility] MCV (RBC) [Entitic vol] 93.3 fL 82.6 - 102.9 fL [facility] Monocytes/100 WBC (Bld) 8 % 3 - 12 % [facility] NRBC Automated 0.0 0.0 per 100 WBC [facility] Platelet distribution width (Bld) [Ratio] 11.6 % Low 11.8 - 14.4 % [facility] Platelet mean volume (Bld) [Entitic vol] 9.6 fL 8.1 - 13.5 fL [facility] Platelets (Bld) [#/Vol] 291 10*3/uL [facility] RBC (Bld) [#/Vol] 4.31 10*6/uL 3.95 - 5.1 1 m/uL [facility] Segmented neutrophils/100 WBC (Bld) 57 % 36 - 65 % [facility] Segs Absolute 3.93 [facility] WBC (Bld) [#/Vol] 6.9 10*3/uL [facility] Comprehensive Metabolic Pane norma 08-29-2022 Albumin [Mass/Vol] 4.6 g/dL 3.5 - 5.2 g/dL [facility] Albumin/Globulin [Mass ratio] 1.9 {ratio} 1 - 2.5 [facility] ALP (Bld) [Catalytic activity/Vol] 50 U/L 35 - 104 U/L [facility] ALT [Catalytic activity/Vol] 11 U/L 5 - 33 U/L [facility] Anion gap [Moles/Vol] 11 mmol/L 9 - 17 mmol/L [facility] AST [Catalytic activity/Vol] 16 U/L NINF - 32 U/L [facility] Bilirubin [Mass/Vol] 0.9 mg/dL 0.3 - 1 .2 mg/dL [facility] Calcium [Mass/Vol] 9.1 mg/dL 8.6 - 10. 4 mg/dL [facility] Chloride [Moles/Vol] 103 mmol/L 98 - 10 7 mmol/L [facility] CO2 [Moles/Vol] 24 mmol/L 20 - 31 mmol/L [facility] Creatinine [Mass/Vol] 0.78 mg/dL 0.5 - 0.9 mg/dL [facility] GFR/1.73 sq M.predicted MDRD (S/P/Bld) [Vol rate/Area] - PINF [facility] Comment on above: Effective Aug [...] [Mass/Vol] 94 mg/dL 70 - 99 mg/dL [facility] Potassium [Moles/Vol] 3.9 mmol/L 3.7 - 5.3 mmol/L [facility] Protein [Mass/Vol] 7.0 g/dL 6.4 - 8.3 g/dL [facility] Sodium [Moles/Vol] 138 mmol/L 135 - 144 mmol/L [facility] Urea nitrogen (BldV) [Mass/Vol] 13 mg/dL 6 - 20 mg/dL [facility] Urea nitrogen/Creatinine (Bld) [Mass ratio] 17 9 - 20 [facility] Pap IG,rfx Aptima HPV all pt hon 08-20-2022 . . Normal [facility] Comment on above: Performed By: #### P [id number] #### [facility] [address] [place] [address] Dr. Mat Stokes DIAGNOSIS: Comment Abnormal [facility] Comment on above: Result Comment: EPIT HELIAL CELL ABNORMALITY. ATYPICAL SQUAMOUS CELLS OF UNDETERMINED SIGNIFICANCE (ASC-US). Performed By: #### P [id number] #### [facility] [address] [place] [address] Dr. Mat Stokes Electronically signed by: Comment Normal [facility] Comment on above: Result Comment: Marci Clinton MD, Pathologist Performed By: #### P APH11A #### [facility] [address] [place] [address] Dr. Mat Stokes HPV Aptima Negative Normal Negative [facility] Comment on above: Result Comment: This nucleic acid amplification test detects fourteen high-risk HPV types (16,18,31,33,35,39,45,51,52,56,58,59,66,68) without differentiation. Performed By: #### P APH11A #### [facility] [address] [place] [address] Dr. Mat Stokes Methodology: Comment Normal [facility] Comment on above: Result Comment: This liquid based ThinPrep(R) pap test was screened with the use of an image guided system. Performed By: #### P APH11A #### [facility] [address] [place] [address] Dr. Mat Stokes Note: Comment Normal [facility] Comment on above: Result Comment: The Pap smear is a screening test designed to aid in the detection of premalignant and malignant conditions of the uterine cervix. It is not a diagnostic procedure and should not be used as the sole means of detecting cervical cancer. Both false-positive and false-negative reports do occur. . Performed By: #### P APH11A #### [facility] [address] [place] [address] Dr. Mat Stokes Pathologist Provided ICD10 Comment Normal [facility] Comment on above: Result Comment: [id number] Performed By: #### P APH11A #### [facility] [address] [address] [address] Mat Stokes Performed by: Comment Normal [facility] Comment on above: Result Comment: Yaz Wilson, Mobile Sales Technician (ASCP) Performed By: #### P APH11A #### [facility] [address] [address] [address] Mat Stokes Reflex Criteria: Comment Normal [facility] Comment on above: Result Comment: See below for HPV testing results. . Performed By: #### P APH11A #### [facility] [address] [address] [address] Mat Stokes Specimen adequacy: Comment Normal [facility] Comment on above: Result Comment: Sati sfactory for evaluation. No endocervical component is identified. Performed By: #### P APH11A #### [facility] [address] [address] [address] Mat Stokes Vital Signs Date Time Vital Sign Value Performing Clinician Faci lity 02-08-2024 13:37-0400 Body height 163.8 cm Torsten Berkowitz APRN-[employer] MECHANIC Work Phone: [facility] 02-08-2024 13:37-0400 Body mass index (BMI) [Ratio] 25.86 kg/m2 Torsten Berkowitz LONG TERM-[employer] MECHANIC Work Phone: [facility] 02-08-2024 13:37-0400 Body weight 69.4 kg Torsten Berkowitz APRN-[employer] MECHANIC Work Phone: [facility] 02-08-2024 13:37-0400 Diastolic blood pressure 86 mm[Hg] Torsten Berkowitz LONG TERM-[employer] MECHANIC Work Phone: [facility] 02-08-2024 13:37-0400 Systolic blood pressure 143 mm[Hg] Torsten Berkowitz LONG TERM-[employer] MECHANIC Work Phone: [facility] Encounters Encounter Date Encounter Type Care Provider Facility Start: 06-24-2024 End: 06-24-2024 ambulatory FLOYD GONZALES Not Available Start: 06-13-2024 End: 06-13-2024 ambulatory MARLA VIDES Not Available Start: 05-30-2024 End: 05-30-2024 ambulatory MARLA VIDES Not Available Start: 05-01-2024 End: 05-01-2024 ambulatory FANI Gilliam [facility] Start: 03-21-2024 End: 03-21-2024 ambulatory ASIYA JOYNER Not Available Start: 02-08-2024 End: 02-08-2024 ambulatory TORSTEN BERKOWITZ [facility] Start: 02-08-2024 End: 02-08-2024 Office outpatient new 30 minutes Torsten Berkowitz [employer] MECH[employer]IC Work Phone: [facility] Comment on above: Irritable bowel synd tomeka, unspecified type (Primary Dx); Abdominal bloating; Gastroesophageal reflux disease, unspecified whether esophagitis present Start: 02-08-2024 End: 02-08-2024 ambulatory GORDON A SELMAENBURG Not Available Start: 01-17-2024 End: 01-17-2024 ambulatory GORDON A HACKENBURG Not Available Start: 12-04-2023 End: 12-04-2023 ambulatory FLOYD GONZALES Not Available Start: 11-22-2023 End: 11-22-2023 ambulatory TAMERA MCCARTHY Not Available Start: 01-08-2023 End: 01-08-[address] TAMERA MCCARTHY Facility:[facility] Start: 08-29-2022 End: 08-29-2022 Subsequent hospital visit by physician Tamera Mccarthy MD Work Phone: [facility] Start: 07-03-2022 End: 07-03-[address] TAMERA MCCARTHY Facility:[facility] Procedures Date Procedure Procedure Detail Performing Clinician Start: 08-29-2022 Comprehensive metabo lic panel Sophia Shipley APRN - [employer] MANAGER Work Phone: Plan of Treatment Date Care Activity Detail Author Start: 08-11-2031 DTaP,Tdap and Td Vaccines (2 - Td or Tdap) DTaP,Tdap and Td Vaccines (2 - Td or Tdap) [facility] Start: 02-07-2025 Adult BMI Screening Adult BMI Screen ing [facility] [facility] Start: 02-07-2025 Tobacco Screening Tobacco Screening [facility] Start: 07-20-2023 COVID-19 Vaccine ( season) COVID-19 Vaccine ( season) [facility] Start: 06-19-2022 Influenza vaccination Flu [facility] (# 1) [facility] Start: 2013 Screening for malign ant neoplasm [facility] cervix [facility] Start: 02-02-2004 Screening for malign ant neoplasm of cervix Pap smear [facility] Start: 2002 DTaP/Tdap/Td vaccine (1 - Tdap) DTaP/Tdap/Td vaccine (1 - Tdap) [facility] Start: 2001 Adult BMI Follow Up Plan Adult BMI Follow Up Plan [facility] Start: 2001 Hepatitis C screening Hepatitis C sc reen [facility] Start: 1998 HIV screening HIV screen [facility] [employer] Start: 1995 Depression Screen Depression Screen [facility] Start: 1995 Depression Screening Depression Scre ening [facility] Start: 02-02-1984 Varicella vaccine (1 of 2 - 2-dose childhood series) Varicella vaccine (1 of 2 - 2-dose childhood series) [facility] Start: 1983 COVID-19 Vaccine (#1) COVID-19 Vacci ne (#1) [facility] Immunizations Immunization Date Immunization Notes Care Provider [facility] 09-06-2021 influenza virus vaccine, unspecified formulation Tamera Mccarthy MD Work Phone: [place] 09-19-2019 influenza virus vaccine, unspecified formulation Tamera Mccarthy MD [facility] Phone[facility] Work Phone: 08-29-2018 influenza virus vaccine, unspecified formulation Tamera Mccarthy MD Work Phone[facility] Payers Date Payer Category Payer Private Health Insurance [facility] [id number] 2023-Present [phone] [address] [address] [place] [address] [id number] 2023 Private Health Insurance [id number] 1983 Unknown [id number] [id number] .2.593 1983 Unknown [id number] 2.16.840.1.861603.3.579 .2.593 1983 Unknown [id number] 2.16.840.1.071737.3.579 .2.1286 1983 Unknown [id number] 2.16.840.1.253933.3.579 .2.173 1983 Unknown [id number] 2.16.840.1.241655.3.579 .2.9 1983 Unknown [id number] 2.16.840.1.979742.3.579 .2.9 1983 Unknown [id number] 2.16.840.1.072497.3.579 .2.9 1983 Unknown [id number] 2.16.840.1.717067.3.579 .2.1259 1983 Unknown [id number] 2.16.840.1.535173.3.579 .2.1259 1983 Unknown [id number] 2.16.840.1.215977.3.579 .2.9 1983 Unknown [id number] 2.16.840.1.560902.3.579 .2.1259 1983 Unknown [id number] 2.16.840.1.917408.3.579 .2.9 1983 Unknown [id number] 2.16.840.1.110238.3.579 .2.1259 1959 Unknown [id number] .[id number] Social History Date Type Detail Facility Start: 06-20-2018 End: 02-08-2024 Tobacco smoking status NHIS Never smoked tobacco [facility]: Start: 06-20-2018 End: 02-08-2024 Tobacco use and exposure Smokeless tobacco non-user [facility]: Start: 1985 Sex Assigned At Not on file [facility]: Start: 02-08-2024 Alcohol intake [facility] [employer] [facility] Start: 04-30-2019 End: 02-08-2024 [facility] Start: 04-30-2019 End: 02-08-2024 [facility] Childcare Unknown [facility] History of Present illness Narrative 02-08-2024 Torsten Berkowitz APRN-KIM - 02/08/2024 2:00 PM EDT Note Date [...] Surgical History: Procedure Laterality Date COLON[facility]COPY [facility] 12/2018December 2018 No Known Allergies Current Outpatient [...] patient/family/caregiver Referring and communicating with other health administrator health care facility Irritable bowel syndrome, unspecified type [K58.9] MIKO LINDSAY [facility] [place] This note was created with the assistance of a speech recognition program. While intending to generate a timely document that accurately reflects the content of the visit, no guarantee can be provided that every grammatical or spelling mistake has been or will be identified or corrected. Thank you for your understanding. MIKO Lindsay 02/11/24 1245 documented in this encounter [facility] Clinical Note 08-28-2022 Note Date & Type Note Facility 08-28-2022 Note PROCEDURE: Infinity Box VCT 64, 5 mm slice axial images [...] signed by Kuldip Mccormick on 08/29/2022 0736 [facility] [employer] Evaluation note Note Date & Type Note Facility Evaluation note Diagnosis Irritable bowel syndrome, unspecified type- Primary Abdominal bloating Flatulence, eructation, and gas pain Gastroesophageal reflux disease, unspecified whether esophagitis present documented in this encounter [facility] Instructions Note Date & Type Note [...] Care Teams (unrecognized sec tion and content) [employer] Special[employer] Relationship Specialty Start Date End Date Tamera Mccarthy MD [address] [place] [address] PCP - General 06/20/18 [employer] Relationship Specialty Start Date End Date Tamera Mccarthy MD [address] [place] [address] PCP - General Family Medicine 02/08/24 INFORMATION SOURCE (unrecogn ized section and content) DATE CREATED AUTHOR 11/21/2022 [facility] dical Specialist DATE CREATED AUTHOR AUTHOR'S ORGANIZ ATION 01/18/2023 [facility] DATE CREATED AUTHOR AUTHOR'S ORGANIZ ATION 02/10/2024 [facility] DATE CREATED AUTHOR AUTHOR'S ORGANIZ ATION 05/02/2024 [facility] DATE CREATED AUTHOR AUTHOR'S ORGANIZ ATION 06/26/2024 [facility] dical Specialists EPIC Reason for Visit (unrecogniz ed section and content) Reason Comments BOWEL CHANGES IBS , REFERRED BY GUTIERREZ ROGERS, FREIGHT LOADING SUPERVISOR, PT HAS [facility] Bloated Abdominal Pain Heartburn Specialty Diagnoses / Procedures Referred By Eron t Referred To Contact General Surgery Diagnoses Irritable bowel syndrome, unspecified type Procedures VA OFFICE OUTPATIENT VISIT 60-74 MINS HIGH MDM AMB REFERRAL TO GENERAL SURGERY Gordon Rogers, LONG TERM-AIRCRAFT 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 [facility] [employer] provides no warranty or guarantee of the accuracy or completeness of information in this document.
== END 2024-07-22 20:51 | disposition home or self-care (01) ==
LOC: LAB 20:50
PROVIDERS: PCP Family Medicine; Visit Provider Obstetrics & Gynecology
DX: R87.622 Low grade squamous intraepithelial lesion on cytologic smear of vagina (LGSIL) (principal)
CPT/HCPCS: 87624; 88175

== ENCOUNTER 2025-02-17 18:27 | Outpatient (REF) | payer OTHER, SELFPAY ==
--- OUTSIDE RECORDS SUMMARY | 2025-02-17 18:32 | XMS_ITS | CCD ---
Author Organization [facility] Care Team Providers Care Machine Lead Burner Name Role Phone Fabio LEDESMA, Tamera Schrader Primary Care Provider FABIO, DR FUNES Primary Care Unavailable JULIANNE ., DR BARRIENTOS Admitting Unavailable JULIANNE ., DR BARRIENTOS Consulting Unavailable JULIANNE ., DR BARRIENTOS Attending Unavailable FABIO, DR FUNES Primary Care Unavailable JULIANNE ., DR BARRIENTOS Admitting Unavailable JULIANNE ., DR BARRIENTOS Consulting Unavailable JULIANNE ., DR BARRIENTOS Attending Unavailable TORTSEN BERKOWITZ Attending Unavailable GIOVANI, GORDON A Referring Unavailab TAMERA Rosenberg Primary Care Unavailable FANI ABEBE Referring Unavailable TAMERA MCCARTHY Primary Care Unavailable Tamera Mccarthy MD Primary Care Provider TAMERA MCCARTHY Attending Unavailable TAMERA MCCARTHY Referring Unavailable GORDON ROGERS Attending Unavailab conner ROGERS, GORDON Mary Referring Unavailab conner ROGERS, GORDON A Referring Unavailab ASIYA Valero Attending Unavailable MARLA VIDES Attending Unavailable MARLA VIDES Attending Unavailable FLOYD WHITAKER Attending Unavailable FLOYD WHITAKER Attending Unavailable Tamera Mccarthy MD Primary Care Provider [phone] Tamera Mccarthy MD Primary Care Provider Medications Current Medications Medication Drug Class(es) Dates Sig (Normalized) Sig (Original) baclofen 20 mg oral tablet (2 sources) gamma-Aminobutyri c Acid-ergic Agonist Start: 03-16-2019 take 1 tablet by mouth twice daily baclofen (LIORESAL) 20 MG tablet Take 1 tablet by mouth 2 times daily 20 tablet 0 03/16/2019 Active Start: 06-20-2018 take 1 tablet by jagdish once daily as needed for muscle spasms Baclofen 5 MG TABS Indications: Arthralgia of left temporomandibular joint Take 5 mg by mouth nightly as needed (spasm) 20 tablet 0 06/20/2018 Active calcium carbonate 500 mg chewable tablet (2 sources) calcium carbonat e (TUMS) 200 mg elemental (500 mg) chewable tablet Chew 1 tablet (200 mg total) and swallow in the morning. Active calcium carbonate (Tums) 250 mg (kletsel dehe wintun 100 mg) chewable split tablet (6 sources) calcium carbonat e (Tums) 250 mg (kletsel dehe wintun 100 mg) chewable split tablet Take 200 mg by mouth in the morning. Active dicyclomine hydrochloride 10 mg oral capsule (8 sources) Anticholinergic Start: 4 take 1 capsule by mouth four times daily before mealtime dicyclomine (Bentyl) 10 MG capsule take 1 capsule by mouth four times a day BEFORE MEALS AND NIGHTLY 02/08/2024 Active estradiol 0.5 mg oral tablet (4 sources) Estrogen Start: End: 6 take 1 tablet by mouth once daily estradiol (Estrace) 0.5 MG tablet Indications: H/O: hysterectomy Take 1 tablet (0.5 mg) by mouth Daily Take 1 tablet by mouth for 30 days 30 tablet 3 02/17/2025 02/17/2026 Active Start: 12-04-2023 End: 12-03-2024 take 1 tablet by mouth in the morning estradiol (Estrace) 0.5 MG tablet Indications: Decreased libido Take 1 tablet (0.5 mg) by mouth in the morning. 30 tablet 11 12/04/2023 12/03/2024 Active famotidine 20 mg oral tablet (6 sources) Histamine-2 Receptor Antagonist Start: 12-12-2024 End: 12-12-2025 take 1 tablet by mouth at bedtime famotidine (Pepcid) 20 MG tablet Indications: Gastroesophageal reflux disease with esophagitis without hemorrhage Take 1 tablet (20 mg) by mouth at bedtime 90 tablet 3 12/12/2024 12/12/2025 Active famotidine (Pepc id) 20 MG tablet Take by mouth Active pantoprazole 40 mg delayed release oral tablet (7 sources) Proton Pump Inhibitor Start: 12-23-2024 take 1 tablet by mouth before mealtime pantoprazole (ProtoNix) 40 MG EC tablet Indications: Gastroesophageal reflux disease with esophagitis without hemorrhage TAKE 1 TABLET BY MOUTH IN THE MORNING BEFORE a meal 100 tablet 11 12/23/2024 Active Start: 12-12-2024 End: 12-23-2024 take 1 dose by mouth before mealtime pantoprazole (Protonix) 40 MG packet Indications: Gastroesophageal reflux disease with esophagitis without hemorrhage Take 1 packet (40 mg) by mouth in the morning. Take before meals. 100 packet 3 12/12/2024 12/23/2024 Discontinued take 40 mg by mouth before mealtime pantoprazole (Protonix) 40 MG packet Take 40 mg by mouth in the morning. Take before meals. Active Completed/Discontinued Medications Medication Drug Class(es) Dates Sig (Normalized) Sig (Original) cyclobenzaprine hydrochloride 10 mg oral tablet (5 sources) Muscle Relaxant Start: 06-24-2024 End: 02-17-2025 take 0.5 tablet by mouth three times daily as needed for muscle spasms cyclobenzaprine (Flexeril) 10 MG tablet Indications: Acute low back pain, unspecified back pain laterality, unspecified whether sciatica present Take 0.5 tablets (5 mg) by mouth 3 (three) times a day as needed for muscle spasms for up to 10 days 30 tablet 06/24/2024 02/17/2025 Discontinued (Therapy completed) Problems Active Problems Problem Classification Problem Date Documented Da te Episodic/Chronic Abdominal pain (1 source) Abdominal pain Onset: 4 Episodic Anxiety disorders (12 sources) Anxiety; Translations: [Anxiety disorder, unspecified] Onset: 3 07-05-2023 Chronic Cancer of other female genital organs (10 sources) Atypical squamous cells of undetermined significance on cytologic smear of vagina (ASC-US); Translations: [Low grade squamous intraepithelial lesion on cytologic smear of vagina (LGSIL)] Onset: 2 07-22-2024 Episodic Esophageal disorders (8 sources) Laryngopharyngeal reflux; Translations: [Gastro-esophageal reflux disease without esophagitis] Onset: 3 07-05-2023 Chronic Fever of unknown origin (1 source) Fever, unspecified; Translations: [Fever, unspecified] Onset: 4 Episodic Immunizations and screening for infectious disease (5 sources) Encounter for screening for human papillomavirus (HPV); Translations: [ENC SCREENING HUMAN PAPILLOMAVIRUS] Onset: 2 Episodic Menstrual disorders (6 sources) Irregular periods; Translations: [Irregular menstruation, unspecified] Onset: 3 07-05-2023 Chronic Other gastrointestinal disorders (1 source) Irritable bowel syndrome; Translations: [Irritable bowel syndrome without diarrhea] 02-08-2024 Chronic Other gastrointestinal disorders (1 source) Heartburn Onset: 4 Episodic Other nervous system disorders (6 sources) Chronic pain; Translations: [Other chronic pain] Onset: 3 07-05-2023 Chronic Other screening for suspected conditions (not mental disorders or infectious disease) (4 sources) Encounter for screening for malignant neoplasm of cervix; Translations: [ENC SCREENING MALIG NEOPLASM CERV] Onset: 3 Episodic Thyroid disorders (18 sources) Cyst of thyroid; Translations: [Nontoxic single thyroid nodule] Onset: 3 07-05-2023 Chronic Unclassified (1 source) BOWEL CHANGES Onset: 4 Unclassified (1 source) Bloated Onset: 4 Past or Other Problems Problem Classification Problem Date Documented Date Episodic/Chronic Disorders of teeth and jaw (6 sources) Arthritis of temporomandibular joint; Translations: [TMJ arthritis] Onset: 3 07-05-2023 Episodic Gastritis and duodenitis (6 sources) Bile-induced gastritis; Translations: [Other gastritis without bleeding] Onset: 3 07-05-2023 Episodic Headache; including migraine (6 sources) Bilateral headache; Translations: [Bilateral headaches] Onset: 3 07-05-2023 Episodic Nonmalignant breast conditions (6 sources) Pain of breast; Translations: [Mastodynia] Onset: 3 07-05-2023 Episodic Other female genital disorders (6 sources) Dysplasia of cervix; Translations: [Dysplasia of cervix uteri, unspecified] Onset: 3 07-05-2023 Episodic Other gastrointestinal disorders (6 sources) Slow transit constipation; Translations: [Slow transit constipation] Onset: 3 04-06-2023 Episodic Other gastrointestinal disorders (6 sources) Dysphagia; Translations: [Dysphagia, pharyngoesophageal phase] Onset: 3 07-05-2023 Episodic Other gastrointestinal disorders (1 source) Abdominal bloating; Translations: [Abdominal distension (gaseous)] 02-08-2024 Episodic Other skin disorders (6 sources) Lesion of skin of breast; Translations: [Other specified disorders of the skin and subcutaneous tissue] Onset: 3 07-05-2023 Episodic Residual codes; unclassified (6 sources) Reduced libido; Translations: [Decreased libido] Onset: 3 07-05-2023 Episodic Results Test Name Value Interpretation Reference Range Facility BI MAMMOGRAM SCREENING TOMOS HOLLIIS BILATERALon 12-12-2024 BI MAMMOGRAM SCREENING TOMOSYNTHESIS BILATERAL This is a summary report. The complete report is available in the patient's medical record. If you cannot access the medical record, please contact the sending organization for a detailed fax or copy. Examination: BI MAMMOGRAM SCREENING TOMOSYNTHESIS BILATERAL Clinical History: Screening Technique: Screening digital mammography study of both breasts was performed with 2-D and 3-D tomosynthesis imaging. Study was compared to the prior exam dated 11/22/2023. Findings: There is no evidence of interval dominant spiculated mass, grouped microcalcifications, or skin thickening which would be suggestive of malignancy. IMPRESSION: Impression: No specific evidence of malignancy seen in either breast. BIRADS 2 - Benign Findings DENSITY: The breasts are heterogeneously dense, which may obscure small masses. FOLLOW-UP: Routine Screening Mammogram ELECTRONICALLY SIGNED BY: Indra Cerna M.D. Normal Not Available PAP IG, APT HPV RFX 16/18,45 on 07-28-2024 HPV APTIMA Negative Negative [facility] Comment on above: This nucleic acid am plification test detects fourteen high- risk HPV types (16,18,31,33,35,39,45,51,52,56,58,59,66,68) without differentiation. Performed at: [address] [id number] Data Visualization Developer: Divya Jamison MD, Phone: [phone] Performed at: =[address], [place] [id number] Data Visualization Developer: Divya Jamison MD, Phone: [phone] Interpretation and review of laboratory results Abnormal [facility] PAP IG (IMAGE GUIDED) Note Abnormal . [facility] Comment on above: TESTS RESULT FLAG UN ITS REF RANGE LAB Clinician Provided Cytology Information Source.............Vagina No. of containers..01 ThinPrep Vial DIAGNOSIS: [A] 01 EPITHELIAL CELL ABNORMALITY. LOW GRADE SQUAMOUS INTRAEPITHELIAL LESION (LSIL). Specimen adequacy: 01 Satisfactory for evaluation. Performed by: 02 Gina Carranza, Front Desk Worker (ASCP) Electronically si... 01 Nelly Clinton MD, Pathologist . 01 Pathologist ICD10: 01 R87.612 Note: Note 01 The Pap smear is a screening test designed to aid in the detection of premalignant and malignant conditions of the uterine cervix. It is not a diagnostic procedure and should not be used as the sole means of detecting cervical cancer. Both false-positive and false-negative reports do occur. Test Methodology: Note 01 This liquid based ThinPrep(R) pap test was screened with the use of an image guided system. HPV Genotype Reflex Note 01 Criteria not met, HPV Genotype not performed. FLAG LEGEND: L-Low Normal,H-High Normal,LL-Alert Low,HH-Alert High <-Panic Low,>-Panic High,A-Abnormal,AA-Critical Abnormal Performed at: 01 WB [facility] [address] [place] [address] Divya Jamison MD, 02 KWCYT [facility] [place] [facility] [address] [place] [address] Steven Altman MD, SP[facility] Cytology Cervical or vaginal smear or scraping studyon 06-24-2024 [facility] CBC with Diffon 05-01-2024 Abs. Basophil <0.03 Normal 0.00-0.20 [facility] Comment on above: Performed By: #### C P, CDP #### [address] [place] [address] Data Visualization Developer: Kendrick Elena MD Abs. Eosinophil <0.03 Normal 0.00-0.44 [facility] Comment on above: Performed By: #### C P, CDP #### [facility] [address] [place] [address] [place] [address] Data Visualization Developer: Kendrick Elena MD Abs.Imm.Granulocyte <0.03 Normal 0.00-0.30 [facility] Comment on above: Performed By: #### C P, CDP #### [address] [place] [address] Data Visualization Developer: Kendrick Elena MD Abs.Neutrophil (Seg) 6.60 k/uL Normal 1.50-8.10 [facility] Comment on above: Performed By: #### C P, CDP #### [facility] [address] [place] [address] Data Visualization Developer: Kendrick Elena MD Basophils/100 WBC (Bld) 0 % Normal 0-2 [facility] Comment on above: Performed By: #### C P, CDP #### [facility] [address] [place], [place] [id number] Data Visualization Developer: Kendrick Elena MD Eosinophils/100 WBC (Bld) 0 % Low 1-4 [facility] Comment on above: Performed By: #### C P, CDP #### [address] [place], [place] [id number] Data Visualization Developer: Kendrick Elena MD Erythrocyte distribution width (RBC) [Ratio] 12.3 % Normal 11.8-14.4 [facility] Comment on above: Performed By: #### C P, CDP #### [address] [place], [place] [id number] Data Visualization Developer: Kendrick Elena MD Hematocrit (Bld) [Volume fraction] 40.7 % Normal 36.3-47.1 [facility] Comment on above: Performed By: #### C P, CDP #### [address] [place], [facility] Data Visualization Developer: Kendrick Elena MD Hemoglobin (Bld) [Mass/Vol] 13.9 g/dL Normal 11.9-15.1 [facility] Comment on above: Performed By: #### C P, CDP #### [address] [place], [place] [id number] Data Visualization Developer: Kendrick Elena MD Immature granulocytes/100 WBC (Bld) 0 % Normal 0 [facility] Comment on above: Performed By: #### C P, CDP #### [address] [place], [place] [address] Data Visualization Developer: Kendrick Elena MD Lymphocytes (Bld) [#/Vol] 1.29 10*3/uL Normal 1.10-3.70 [facility] Comment on above: Performed By: #### C P, CDP #### [address] [place] [address] Data Visualization Developer: Kendrick Elena MD Lymphocytes/100 WBC (Bld) 15 % Low 24-43 [facility] Comment on above: Performed By: #### C P, CDP #### [facility] [address] [place] [address] Data Visualization Developer: Kendrick Elena MD MCH (RBC) [Entitic mass] 32.0 pg Normal 25.2-33.5 [facility] Comment on above: Performed By: #### C P, CDP #### [facility] [address] [place], [facility] Data Visualization Developer: Kendrick Elena MD MCHC (RBC) [Mass/Vol] 34.2 g/dL Normal 28.4-34.8 [facility] Comment on above: Performed By: #### C P, CDP #### [facility] [address] [place] [id number] Data Visualization Developer: Kendrick Elena MD MCV (RBC) [Entitic vol] 93.6 fL Normal 82.6-102.9 [facility] Comment on above: Performed By: #### C P, CDP #### [facility] [address] [place], [facility] Data Visualization Developer: Kendrick Elena MD Monocytes (Bld) [#/Vol] 0.71 10*3/uL Normal 0.10-1.20 [facility] Comment on above: Performed By: #### C P, CDP #### [facility] [address] [place], [facility] Data Visualization Developer: Kendrick Elena MD Monocytes/100 WBC (Bld) 8 % Normal 3-12 [facility] Comment on above: Performed By: #### C P, CDP #### [facility] [address] [place] [address] Data Visualization Developer: Kendrick Elena MD Neutrophil (Seg) 77 % High 36-65 [facility] Comment on above: Performed By: #### C P, CDP #### [facility] [address] [place], [place] [id number] Data Visualization Developer: Kendrick Elena MD NRBC Automated 0.0 per 100 WBC Normal 0.0 [facility] Comment on above: Performed By: #### C P, CDP #### [address] [place], [place] [address] Data Visualization Developer: Kendrick Elena MD Platelet mean volume (Bld) [Entitic vol] 9.9 fL Normal 8.1-13.5 [facility] Comment on above: Performed By: #### C P, CDP #### [address] [place], [place] [address] Data Visualization Developer: Kendrick Elena MD Platelets (Bld) [#/Vol] 232 10*3/uL Normal 138-453 [facility] Comment on above: Performed By: #### C P, CDP #### [address] [place], [place] [address] Data Visualization Developer: Kendrick Elena MD RBC (Bld) [#/Vol] 4.35 10*6/uL Normal 3.95-5.11 [facility] Comment on above: Performed By: #### C P, CDP #### [address] [place], [place] [address]683 Data Visualization Developer: Kendrick Elena MD WBC (Bld) [#/Vol] 8.7 10*3/uL Normal 3.5-11.3 [facility] Comment on above: Performed By: #### C P, CDP #### [address] [place] [address] Data Visualization Developer: Kendrick Elena MD Comp Metabolic Profon 2023 Albumin [Mass/Vol] 4.3 g/dL Normal 3.5-5.2 [facility] Comment on above: Performed By: #### C P, CDP #### [address] [place], [place] [address] Data Visualization Developer: Kendrick Elena MD Albumin/Glob Ratio 1.6 Normal 1.0-2.5 [facility] Comment on above: Performed By: #### C P, CDP #### [facility] [address] [place], [place] [id number] Data Visualization Developer: Kendrick Elena MD Alkaline Phos 54 U/L Normal 35-104 [facility] Comment on above: Performed By: #### C P, CDP #### [facility] [address] [place], [place] [address] Data Visualization Developer: Kendrick Elena MD ALT [Catalytic activity/Vol] 14 U/L Normal 5-33 [facility] Comment on above: Performed By: #### C P, CDP #### [facility] [address] [place], [place] 15[address]83 Data Visualization Developer: Kendrick Elena MD Anion gap [Moles/Vol] 9 mmol/L Normal 9-17 [facility] Comment on above: Performed By: #### C P, CDP #### [address] [place], [place] [address]24383 Data Visualization Developer: Kendrick Elena MD AST [Catalytic activity/Vol] 16 U/L Normal <32 [facility] Comment on above: Performed By: #### C P, CDP #### [facility] [address] [place], [place] [address] Data Visualization Developer: Kendrick Elena MD Bilirubin [Mass/Vol] 0.9 mg/dL Normal 0.3-1.2 [facility] Comment on above: Performed By: #### C P, CDP #### [facility] [address] [place], [place] [address] Data Visualization Developer: Kendrick Elena MD BUN/CRE Ratio 11 Normal 9-20 [facility] Comment on above: Performed By: #### C P, CDP #### [facility] [address] [place], [place] [address] Data Visualization Developer: Kendrick Elena MD Calcium [Mass/Vol] 9.0 mg/dL Normal 8.6-10.4 [facility] Comment on above: Performed By: #### C P, CDP #### [facility] [address] [place], [place] [address] Data Visualization Developer: Kendrick Elena MD Chloride [Moles/Vol] 102 mmol/L Normal 98-107 [facility] Comment on above: Performed By: #### C P, CDP #### [facility] [address] [place], [place] [address] Data Visualization Developer: Kendrick Elena MD CO2 [Moles/Vol] 29 mmol/L Normal 20-31 [facility] Comment on above: Performed By: #### C P, CDP #### [facility] [address] [place], [place] [id number] Data Visualization Developer: Kendrick Elena MD Creatinine [Mass/Vol] 0.9 mg/dL Normal 0.5-0.9 [facility] Comment on above: Performed By: #### C P, CDP #### [facility] [address] [place], [place] [address] Data Visualization Developer: Kendrick Elena MD GFR/1.73 sq M.predicted among non-blacks MDRD (S/P/Bld) [Vol rate/Area] 82 mL/min/{1.73_m2} Normal >60 [facility] Comment on above: Result Comment: These results [...] Performed By: #### C P, CDP #### [facility] [address] [place], [place] [address] Data Visualization Developer: Kendrick Elena MD Glucose [Mass/Vol] 100 mg/dL High 70-99 [facility] Comment on above: Performed By: #### C P, CDP #### [facility] [address] [place], [place] [address] Data Visualization Developer: Kendrick Elena MD Potassium [Moles/Vol] 4.2 mmol/L Normal 3.7-5.3 [facility] Comment on above: Performed By: #### C P, CDP #### [facility] [address] [place] [address] [place], [place] [id number] Data Visualization Developer: Kendrick Elena MD Protein [Mass/Vol] 7.0 g/dL Normal 6.4-8.3 [facility] Comment on above: Performed By: #### C P, CDP #### [facility] [address] [place] [address] Dr[place], [place] [address] Data Visualization Developer: Kendrick Elena MD Sodium [Moles/Vol] 140 mmol/L Normal 135-144 [facility] Comment on above: Performed By: #### C P, CDP #### [address] [place], [place] [address]83 Data Visualization Developer: Kendrick Elena MD Urea nitrogen [Mass/Vol] 10 mg/dL Normal 6-20 [facility] Comment on above: Performed By: #### C P, CDP #### [facility] [address] [place], [place] [id number] Data Visualization Developer: Kendrick Elena MD CT ABDOMEN PELVIS WO IV CONT Isabel 02-08-2024 CT ABDOMEN PELVIS WO IV CONTRAST [...] BY: Zenon Lloyd MD Normal Not Available Pap IG, rfx Aptima HPV, rfx 16/18,45on 01-16-2023 . . Normal [facility] Comment on above: Result Comment: Perf ormed at: WB Performed By: #### P APHR2A #### [facility] [address] [address] [address] Mat Stokes DIAGNOSIS: Comment Abnormal [facility] Comment on above: Result Comment: EPIT HELIAL CELL ABNORMALITY. LOW GRADE SQUAMOUS INTRAEPITHELIAL LESION (LSIL). Performed at: WB Performed By: #### P APHR2A #### [facility] [address] [address] [address] Mat Stokes Electronically signed by: Comment Normal [facility] Comment on above: Result Comment: Marci Clinton MD, Pathologist Performed at: WB Performed By: #### P APHR2A #### [facility] [address] [place] [address] Dr. Mat Stokes HPV Aptima Negative Normal Negative [facility] Comment on above: Result Comment: This nucleic acid amplification test detects fourteen high-risk HPV types (16,18,31,33,35,39,45,51,52,56,58,59,66,68) without differentiation. Performed at: =G Performed By: #### P APHR2A #### [facility] [address] [place] [address] Dr. Mat Stokes HPV Genotype Reflex Comment Normal [facility] Comment on above: Result Comment: Crit eria not met, HPV Genotype not performed. Performed at: WB Performed By: #### P APHR2A #### [facility] [address] [place] [address] Dr. Mat Stokes Methodology: Comment Normal [facility] Comment on above: Result Comment: This liquid based ThinPrep(R) pap test was screened with the use of an image guided system. Performed at: WB Performed By: #### P APHR2A #### [facility] [address] [place] [address] Dr. Mat Stokes Note: Comment Normal [facility] Comment on above: Result Comment: The Pap smear is a screening test designed to aid in the detection of premalignant and malignant conditions of the uterine cervix. It is not a diagnostic procedure and should not be used as the sole means of detecting cervical cancer. Both false-positive and false-negative reports do occur. . Performed at: WB Performed By: #### P APHR2A #### [facility] [address] [place] [address] Dr. Mat Stokes Pathologist Provided ICD10 Comment Normal [facility] Comment on above: Result Comment: R87. [id number] Performed at: WB Performed By: #### P APHR2A #### [facility] [address] [place] [address] Dr. Mat Stokes Performed by: Comment Normal [facility] Comment on above: Result Comment: Caitlin Jarquin, Front Desk Worker (ASCP) Performed at: WB Performed By: #### P APHR2A #### [facility] [address] [place], [place] [address] Dr. Mat Stokes Specimen adequacy: Comment Normal [facility] [facility] Comment on above: Result Comment: Sati sfactory for evaluation. No endocervical component is identified. Performed at: WB Performed By: #### P [id number] #### [facility] [address], [place] [address] Dr. Mat Stokes SCREENING MAMMOGRAM W/MUSA, BILATERAL*on [...] VERY IMPORTANT TO YOUR HEALTH. THE CURRENT [employer] GUIDELINES RECOMMENDS ANNUAL MAMMOGRAPHY BEGINNING AT AGE 40 THIS FACILITY USES A REMINDER SYSTEM TO ENSURE ALL PATIENTS RECEIVE REMINDER NOTIFICATIONS AT THE APPROPRIATE TIME BASED ON THE RECOMMENDATIONS OF THIS EXAM. Report reported and signed by Kuldip Mccormick on 11/21/2022 0859 Normal [facility] Staying Machine Operator US Thyroidon 11-03-2022 US Thyroid FINDINGS: Right [...] by Kuldip Mccormick on 11/03/2022 1038 Normal [facility] Staying Machine Operator CBC with Auto Differentialon 08-29-2022 Absolute Eos # 0.04 [facility] Absolute Immature Granulocyte [facility] Absolute Lymph # 2.38 [facility] Absolute Henry # 0[facility]56 [facility] Basophils Absolute [facility] Basophils/100 WBC (Bld) 0 % 0 - 2 % [facility] Eosinophils/100 WBC (Bld) 1 % 1 - 4 % [facility] Hematocrit (Bld) [Volume fraction] 40.2 % 36.3 - 47.1 % [facility] Hemoglobin (Bld) [Mass/Vol] 13.8 g/dL 11.9 - 15.1 g/dL [facility] Immature granulocytes/100 WBC (Bld) 0 % 0 [facility] Interpretation and review of laboratory results Abnormal [facility] Lymphocytes/100 WBC (Bld) 34 % 24 - 43 % [facility] MCH (RBC) [Entitic mass] 32.0 pg 25.2 - 33.5 pg [facility] MCHC (RBC) [Mass/Vol] 34.3 g/dL 28.4 - 34.8 g/dL [facility] MCV (RBC) [Entitic vol] 93.3 fL 82.6 - 102.9 fL [facility] Monocytes/100 WBC (Bld) 8 % 3 - 12 % [facility] NRBC Automated 0.0 0.0 per 100 WBC [facility] Platelet distribution width (Bld) [Ratio] 11.6 % Low 11.8 - 14.4 % [facility] Platelet mean volume (Bld) [Entitic vol] 9.6 fL 8.1 - 13.5 fL [facility] Platelets (Bld) [#/Vol] 291 10*3/uL [facility] RBC (Bld) [#/Vol] 4.31 10*6/uL 3.95 - 5.1 1 m/uL [facility] Segmented neutrophils/100 WBC (Bld) 57 % 36 - 65 % [facility] Segs Absolute 3.93 [facility] WBC (Bld) [#/Vol] 6.9 10*3/uL [facility] Comprehensive Metabolic Pane norma 08-29-2022 Albumin [Mass/Vol] 4.6 g/dL 3.5 - 5.2 g/dL [facility] Albumin/Globulin [Mass ratio] 1.9 {ratio} 1 - 2.5 [facility] ALP (Bld) [Catalytic activity/Vol] 50 U/L 35 - 104 U/L [facility] ALT [Catalytic activity/Vol] 11 U/L 5 - 33 U/L [facility] Anion gap [Moles/Vol] 11 mmol/L 9 - 17 mmol/L [facility] AST [Catalytic activity/Vol] 16 U/L NINF - 32 U/L [facility] Bilirubin [Mass/Vol] 0.9 mg/dL 0.3 - 1 .2 mg/dL [facility] Calcium [Mass/Vol] 9.1 mg/dL 8.6 - 10. 4 mg/dL [facility] Chloride [Moles/Vol] 103 mmol/L 98 - 10 7 mmol/L [facility] CO2 [Moles/Vol] 24 mmol/L 20 - 31 mmol/L [facility] Creatinine [Mass/Vol] 0.78 mg/dL 0.5 - 0.9 mg/dL [facility] [employer] GFR/1.73 sq M.predicted MDRD (S/P/Bld) [Vol rate/Area] - PINF [facility] Comment on above: Effective Aug 21, 2022 [...] [Mass/Vol] 94 mg/dL 70 - 99 mg/dL [facility] [employer] Potassium [Moles/Vol] 3.9 mmol/L 3.7 - 5.3 mmol/L [facility] [employer] Protein [Mass/Vol] 7.0 g/dL 6.4 - 8.3 g/dL [facility] Sodium [Moles/Vol] 138 mmol/L 135 - 144 mmol/L [facility] Urea nitrogen (BldV) [Mass/Vol] 13 mg/dL 6 - 20 mg/dL [facility] [employer] Urea nitrogen/Creatinine (Bld) [Mass ratio] 17 9 - 20 [facility] [employer] Pap IG,rfx Aptima HPV all pt hon 07-08-2022 . . Normal [facility] Comment on above: Performed By: #### P [id number] #### [facility] [address] [place] [address] Dr. Mat Stokes DIAGNOSIS: Comment Abnormal [facility] Comment on above: Result Comment: EPIT HELIAL CELL ABNORMALITY. ATYPICAL SQUAMOUS CELLS OF UNDETERMINED SIGNIFICANCE (ASC-US). Performed By: #### P [id number] #### [facility] [address] [address] [address] Mat Stokes Electronically signed by: Comment Normal [facility] Comment on above: Result Comment: Marci Clinton MD, Pathologist Performed By: #### P [id number] #### [facility] [address] [address] [address] Mat Stokes HPV Aptima Negative Normal Negative [facility] Comment on above: Result Comment: This nucleic acid amplification test detects fourteen high-risk HPV types (16,18,31,33,35,39,45,51,52,56,58,59,66,68) without differentiation. Performed By: #### P [id number] #### [facility] [address] [place] [address] Dr. Mat Stokes Methodology: Comment Normal [facility] Comment on above: Result Comment: This liquid based ThinPrep(R) pap test was screened with the use of an image guided system. Performed By: #### P [id number] #### [facility] [address] [place] [address] Dr. Mat Stokes Note: Comment Normal [facility] Comment on above: Result Comment: The Pap smear is a screening test designed to aid in the detection of premalignant and malignant conditions of the uterine cervix. It is not a diagnostic procedure and should not be used as the sole means of detecting cervical cancer. Both false-positive and false-negative reports do occur. . Performed By: #### P [id number] #### [facility] [address] [place] [address] Dr. Mat Stokes Pathologist Provided ICD10 Comment Normal [facility] Comment on above: Result Comment: [id number] Performed By: #### P [id number] #### [facility] [address] [place] [address] Dr. Mat Stokes Performed by: Comment Normal [facility] Comment on above: Result Comment: Yaz Wilson, Front Desk Worker (ASCP) Performed By: #### P [id number] #### [facility] [address] [place] [address] Dr. Mat Stokes Reflex Criteria: Comment Normal [facility] Comment on above: Result Comment: See below for HPV testing results. . Performed By: #### P APH11A #### [facility] [address] [place] [address] Dr. Mat Stokes Specimen adequacy: Comment Normal [facility] Comment on above: Result Comment: Sati sfactory for evaluation. No endocervical component is identified. Performed By: #### P [id number] #### [facility] [address] [place] [address] Dr. Mat Stokes Vital Signs Date Time Vital Sign Value Performing Clinician Johnny ochoa 02-17-2025 15:20-0400 Body mass index (BMI) [Ratio] 26.78 kg/m2 Floyd Julianne DO Work Phone: [facility] 02-17-2025 15:20-0400 Body weight 70.76 kg Floyd Julianne DO Work Phone: [facility] 02-17-2025 15:20-0400 Diastolic blood pressure 72 mm[Hg] Floyd Julianne DO Work Phone: [facility] 02-17-2025 15:20-0400 Systolic blood pressure 124 mm[Hg] Floyd Julianne DO Work Phone: [facility] 07-22-2024 11:48-0400 Body mass index (BMI) [Ratio] 26.09 kg/m2 Floyd Julianne DO Work Phone: [facility] 07-22-2024 11:48-0400 Body weight 68.95 kg Floyd Julianne DO Work Phone: [facility] 07-22-2024 11:48-0400 Diastolic blood pressure 72 mm[Hg] Floyd Julianne DO Work Phone: [facility] 07-22-2024 11:48-0400 Systolic blood pressure 118 mm[Hg] Floyd Julianne DO Work Phone: [facility] 02-08-2024 13:37-0400 Body height 163.8 cm Torsten Berkowitz OBSTETRICS/GYNECOLOGY NURSE-GAS ENGINE OPERATOR COMPRESSORS Work Phone: [facility] 02-08-2024 13:37-0400 Body mass index (BMI) [Ratio] 25.86 kg/m2 Torsten Berkowitz OBSTETRICS/GYNECOLOGY NURSE-GAS ENGINE OPERATOR COMPRESSORS Work Phone: [facility] 02-08-2024 13:37-0400 Body weight 69.4 kg Torstengeorgiana Berkowitz OBSTETRICS/GYNECOLOGY NURSE-GAS ENGINE OPERATOR COMPRESSORS Work Phone: [facility] 02-08-2024 13:37-0400 Diastolic blood pressure 86 mm[Hg] Torsten Berkowitz OBSTETRICS/GYNECOLOGY NURSE-GAS ENGINE OPERATOR COMPRESSORS Work Phone: [facility] 02-08-2024 13:37-0400 Systolic blood pressure 143 mm[Hg] Torsten Berkowitz OBSTETRICS/GYNECOLOGY NURSE-GAS ENGINE OPERATOR COMPRESSORS Work Phone: [facility] Encounters Encounter Date Encounter Type Care Provider Facility Start: 02-17-2025 End: 02-17-2025 Office outpatient visit 15 minutes Floyd Julianne DO Work Phone: [facility] Comment on above: LGSIL Pap smear of v agina; H/O: hysterectomy Start: 02-17-2025 End: 02-17-2025 Bamboo flowsheet Floyd Julianne DO Work Phone: [facility] Start: 02-17-2025 End: 02-17-2025 Bamboo flowsheet Floyd Julianne DO Work Phone: [facility] Start: 01-09-2025 End: 01-09-2025 Telephone encounter Torsten Berkowitz OBSTETRICS/GYNECOLOGY NURSE-GAS ENGINE OPERATOR COMPRESSORS Work Phone: [facility] Start: 12-23-2024 End: 12-23-2024 Refill Tamera Mccarthy MD Work Phone: [facility] Comment on above: Gastroesophageal ref lux disease with esophagitis without hemorrhage Start: 12-12-2024 End: 12-12-2024 ambulatory TAMERA MCCARTHY Not Available Start: 11-20-2024 End: 11-20-2024 Telephone encounter Tamera Mccarthy MD Work Phone: [facility] Start: 07-22-2024 End: 07-28-2024 Clinisync Result Encounter Floyd Julianne DO Work Phone: [facility] Unsolicited Start: 07-22-2024 End: 07-28-2024 Clinisync Result Encounter Floyd Julianne DO Work Phone: [facility] Unsolicited Start: 07-22-2024 End: 07-22-2024 Patient encounter procedure Floyd Schafero DO Work Phone: [facility] Comment on above: LGSIL Pap smear of v agina; H/O: hysterectomy Start: 07-22-2024 End: 07-22-2024 ambulatory FLOYD JULIANNE Not Available Start: 06-24-2024 End: 06-24-2024 ambulatory FLOYD JULIANNE Not Available Start: 06-13-2024 End: 06-13-2024 ambulatory MARLA A PETITTI Not Available Start: 05-30-2024 End: 05-30-2024 ambulatory MARLA A PETITTI Not Available Start: 05-01-2024 End: 05-01-2024 [facility] Start: 03-21-2024 End: 03-21-2024 ambulatory ASIYA NORTHEIM Not Available Start: 02-08-2024 End: 02-08-2024 ambulatory [facility] Mary BERKOWITZ [facility] Start: 02-08-2024 End: 02-08-2024 Office outpatient new 30 minutes [facility] OBSTETRICS/GYNECOLOGY NURSE-GAS ENGINE OPERATOR COMPRESSORS Work Phone: [facility] Comment on above: Irritable bowel synd tomeak, unspecified type (Primary Dx); Abdominal bloating; Gastroesophageal reflux disease, unspecified whether esophagitis present Start: 02-08-2024 End: 02-08-2024 ambulatory GORDON A HACKENBURG Not Available Start: 01-17-2024 End: 01-17-2024 ambulatory GORDON A HACKENBURG Not Available Start: 01-08-2023 End: 01-08-[address] TAMERA MCCARTHY Facility:[facility] Start: 08-29-2022 End: 08-29-2022 Subsequent hospital visit by physician Tamera Mccarthy MD Work Phone: [facility] Start: 07-03-2022 End: 07-03-[address] TAMERA MCCARTHY Facility:[facility] Procedures Date Procedure Procedure Detail Performing Clinician Start: 12-12-2024 Mammography Tamera Mccarthy MD Work Phone: Start: 07-22-2024 PAP IG, APT HPV RFX 16/18,45 Floyd Julianne DO Work Phone: Start: 06-24-2024 Microscopic observat ion [Identifier] in Cervix by Cyto stain Torsten Crowleyoll OBSTETRICS/GYNECOLOGY NURSE-GAS ENGINE OPERATOR COMPRESSORS Work Phone: Start: 06-24-2024 Cytp cerv/vag auto t hin layer prep mnl screen Floyd Julianne DO Work Phone: Start: 11-22-2023 Mammography Floyd Fazi o DO Work Phone: Start: 07-05-2023 H/O: hysterectomy H/O: hysterectomy Floyd Julianne DO Work Phone: Start: 08-29-2022 Comprehensive metabo lic panel Sophia Shipley OBSTETRICS/GYNECOLOGY NURSE - SOUND ENGINEER AUDIO CONTROL Work Phone: H/O: hysterectomy H/O: hysterectomy Floyd Julianne DO Work Phone: H/O: hysterectomy H/O: hysterectomy Floyd Julianne DO Work Phone: Plan of Treatment Date Care Activity Detail Author Start: 08-11-2031 DTaP,Tdap and Td Vaccines (2 - Td or Tdap) DTaP,Tdap and Td Vaccines (2 - Td or Tdap) [facility] Start: 06-24-2027 Screening for malign ant neoplasm of cervix Pap Smear [facility] Start: 12-12-2025 Screening for malign ant neoplasm of breast Mammogram [facility] Start: 09-29-2025 End: 09-29-2025 Patient encounter procedure 09/29/2025 3:00 PM EST Office Visit [facility] [address] [place] [address] Floyd Whitaker, DO [address] [place] [address] [facility] Start: 07-20-2025 Influenza vaccination Influenz a Vaccine (Season Ended) [facility] Start: 03-27-2025 End: 03-27-2025 Patient encounter procedure 03/27/2025 9:30 AM EDT Office Visit [facility] [address] [place] [address] Asiya Rdz PA [address] [place] [id number] [facility] Start: 02-17-2025 End: 02-17-2025 Patient encounter procedure [facility] Comment on above: Arrived Start: 02-07-2025 Adult BMI Screening Adult BMI Screen ing [facility] Start: 02-07-2025 Tobacco Screening Tobacco Screening [facility] Start: 11-28-2024 End: 11-28-2024 Patient encounter procedure 11/28/2024 9:40 AM EST Office Visit [facility] [address] [place] [address] Tamera Mccarthy MD [address] [place], [place] [id number] [facility] Start: 11-22-2024 Screening for malign ant neoplasm of breast Mammogram [facility] Start: 07-22-2024 End: 07-22-2025 Colposcopy Colposcopy Procedures Routine LGSIL Pap smear of vagina Expected: 07/22/2024 (Approximate), Expires: 07/22/2025 [facility] Work Phone: Comment on above: Expected: 07/22/2024 (Approximate), Expires: 07/22/2025 Start: 07-20-2024 COVID-19 Vaccine ( season) COVID-19 Vaccine ( season) [facility] Start: 07-20-2024 Influenza vaccination [facility] Start: 07-20-2023 COVID-19 Vaccine ( season) COVID-19 Vaccine ( season) [facility] Start: 06-19-2022 Influenza vaccination Flu vaccine (# 1) [facility] Start: 2013 Screening for malign ant neoplasm of cervix [facility] Start: 02-02-2004 Screening for malign ant neoplasm of cervix Pap smear [facility] Start: 2002 DTaP/Tdap/Td vaccine (1 - Tdap) DTaP/Tdap/Td vaccine (1 - Tdap) [facility] Start: 2001 Adult BMI Follow Up Plan Adult BMI Follow Up Plan [facility] Start: 2001 Hepatitis C screening Hepatitis C sc reen [facility] Start: 1998 HIV screening HIV screen [facility] Start: 1995 Depression Screen Depression Screen [facility] Start: 1995 Depression Screening Depression Scre ening [facility] Start: 02-02-1984 Varicella vaccine (1 of 2 - 2-dose childhood series) Varicella vaccine (1 of 2 - 2-dose childhood series) [facility] Start: 1983 COVID-19 Vaccine (#1) COVID-19 Vacci ne (#1) [facility] THIN PREP TIS PAP AN D HR HPV DNA THIN PREP TIS PAP AND HR HPV DNA Pathology and Cytology Routine LGSIL Pap smear of vagina Ordered: 07/22/2024 [facility] Comment on above: Ordered: 07/22/2024 THIN PREP TIS PAP AN D HR HPV DNA THIN PREP TIS PAP AND HR HPV DNA Pathology and Cytology Routine LGSIL Pap smear of vagina H/O: hysterectomy Ordered: 02/17/2025 [facility] Work Phone: Comment on above: Ordered: 02/17/2025 Immunizations Immunization Date Immunization Notes Care Provider [facility] 09-26-2023 influenza virus vaccine, unspecified formulation Floyd Whitaker DO Work Phone: [facility] 09-06-2021 influenza virus vaccine, unspecified formulation Tamera Mccarthy MD Work Phone: [facility] 09-19-2019 influenza virus vaccine, unspecified formulation Tamera Mccarthy MD Work Phone: [facility] Work Phone: 08-29-2018 influenza virus vaccine, unspecified formulation Tamera Mccarthy MD Work Phone: [employer] Payers Date Payer Category Payer Managed Care Other (unspecified) [facility] [id number] 2023 Private Health Insurance [id number] 2023 Private Health Insurance [id number] 1983 Unknown [id number] .[id number] 1983 Unknown [id number] [id number] .2.593 1983 Unknown [id number] [id number] .2.1286 1983 Unknown [id number] [id number] .2.173 1983 Unknown [id number] [id number] .2.1259 1983 Unknown [id number] [id number] .2.1259 1983 Unknown [id number] [id number] .2.1259 1983 Unknown [id number] [id number] .2.1259 1983 Unknown [id number] [id number] .2.1259 1983 Unknown [id number] [id number] .2.9 1983 Unknown [id number] [id number] .2.9 1983 Unknown [id number] [id number] .2.1258 1983 Unknown [id number] [id number] .2.9 1983 Unknown [id number] [id number] .2.9 1959 Unknown [id number] Social History Date Type Detail Facility Start: 06-20-2018 End: 12-12-2024 Tobacco smoking status [facility] Never smoked tobacco [employer] Phone: Start: 06-20-2018 End: 12-12-2024 Tobacco use and exposure Smokeless tobacco non-user [employer] Phone: Start: 1985 Sex Assigned At Not on file [employer] Phone: Start: 07-22-2024 End: 02-17-2025 Alcoholic beverage intake Lifetime non-drinker (finding) [facility] Start: 07-22-2024 End: 12-06-2024 History of Social function [facility] Start: 07-22-2024 End: 12-06-2024 Tobacco use panel [facility] Start: 07-05-2023 Alcohol Comment Caffeine: 1-2 cups/day coffee [facility] Start: 1985 Sex assigned at Female [facility] Start: 04-20-2023 Gender identity Identifies as female gender (finding) [facility] How often do you nee d to have someone help you when you read instructions, pamphlets, or other written material from your doctor or pharmacy [SILS] Never [facility] Do you belong to any clubs or organizations such as spiritism groups, unions, fraternal or athletic groups, or school groups? No [facility] Are you now , , , , never or living with a partner? [facility] How often to you hav e a drink containing alcohol? Never [facility] Do you feel stress - tense, restless, nervous, or anxious, or unable to sleep at night because your mind is troubled all the time - these days [OSQ] Not at all [facility] (I/We) worried wheth er (my/our) food would run out before (I/we) got money to buy more. Never true [facility] Start: 06-24-2015 Sex Female (finding) [facility] Clinical Notes 08-28-2022 to 02-17-2025 Kenzie De La Paz LPN - 02/17/2025 3:00 PM EDTTelephone Encounter - Kenna Leigh - 01/09/2025 11:00 AM ESTTelephone Encounter - Kenna Leigh - 01/09/2025 11:00 AM EST Note Date & Type Note Facility 02-17-2025 History of Presen t illness Narrative Reason for Appointment: Patient ID: Sherry Moura is a 40 y.o. female who presents for Abnormal Pap Smear (Pt present today for a repeat pap smear. Pt had a LGSIL on 06/24/2024.) Patient presents today for Repeat Pap. MEDICATIONS Current Outpatient Medications Medication Instructions calcium carbonate (TUMS) 200 mg, Daily RT dicyclomine (Bentyl) 10 MG capsule take 1 capsule by mouth four times a day BEFORE MEALS AND NIGHTLY famotidine (PEPCID) 20 mg, Oral, Nightly pantoprazole (ProtoNix) 40 MG EC tablet TAKE 1 TABLET BY MOUTH IN THE MORNING BEFORE a meal ALLERGIES No Known Allergies PROBLEMS Active Ambulatory Problems Diagnosis Date Noted Slow transit constipation 04/06/2023 Anxiety 07/05/2023 Bilateral headaches 07/05/2023 Cervical dysplasia 07/05/2023 Cyst of thyroid (CMS/HCC) 07/05/2023 Gastritis, bile acid reflux 07/05/2023 H/O: hysterectomy 07/05/2023 Irregular menses 07/05/2023 Lesion of skin of breast 07/05/2023 LPRD (laryngopharyngeal reflux disease) 07/05/2023 Nontoxic single thyroid nodule (CMS/HCC) 07/05/2023 Obsessive compulsive disorder (CMS/HCC) 07/05/2023 Other chronic pain 07/05/2023 Pain of breast 07/05/2023 Papanicolaou smear of vagina with low grade squamous intraepithelial lesion (LGSIL) 07/05/2023 Pharyngoesophageal dysphagia 07/05/2023 Reduced libido 07/05/2023 Subclinical hyperthyroidism (CMS/HCC) 07/05/2023 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 Resolved Ambulatory Problems Diagnosis Date Noted No Resolved Ambulatory Problems Past Medical History: Diagnosis Date Atypical nevi COVID-01/2021 Gastro-esophageal reflux disease without esophagitis History of abnormal cervical Pap smear History of HPV infection IBS (irritable bowel syndrome) 2012 Inflammatory bowel disease 11/2010 Thyroid cyst (CMS/HCC) HISTORY PAST MEDICAL HISTORY SOCIAL HISTORY Past Medical History: Diagnosis Date Atypical nevi Cervical dysplasia COVID-01/2021 Gastro-esophageal reflux disease without esophagitis History of abnormal cervical Pap smear pt had ablation x2 then hysterectomy History of HPV infection IBS (irritable bowel syndrome) 2012 Inflammatory bowel disease 11/2010 Subclinical hyperthyroidism (CMS/HCC) Thyroid cyst (CMS/HCC) Social History Tobacco Use Smoking status: Never Smokeless tobacco: Never Vaping Use Vaping status: Never Used Substance Use Topics Alcohol use: Never Comment: Caffeine: 1-2 cups/day coffee Drug use: Never FAMILY HISTORY Family History Problem Relation Name Age of Onset Diabetes Mother Estelle Ayala Melanoma Mother's Brother Mental illness Paternal Grandfather Celiac disease Other Colon cancer Other Colonic polyp Other Ulcerative colitis Other Crohn's disease Other SURGICAL HISTORY Past Surgical History: Procedure Laterality Date BUNIONECTOMY 2009 CERVICAL BIOPSY W/ LOOP ELECTRODE EXCISION 2010 Cervical Dysplasia SECTION, LOW TRANSVERSE 2010 COLONOSCOPY 2012 IBS EGD 2012 with biopsy [facility] MAMMOGRAPHY 8 months ago for breast pain (noted 04/06/2023) HYSTERECTOMY Dec 2019 PAP SMEAR 07/03/2022 ASCUS PARTIAL HYSTERECTOMY 01/03/2019 REVIEW OF SYSTEMS Review of Systems: Review of Systems Constitutional: Negative. HENT: Negative. Eyes: Negative. Respiratory: Negative. Cardiovascular: Negative. Gastrointestinal: Negative. Genitourinary: Negative. Musculoskeletal: Negative. Skin: Negative. Neurological: Negative. All other systems reviewed and are negative. Hematological: Negative. Endocrine: Negative. Allergic/Immunologic: Negative. OBJECTIVE Objective: Physical Exam Constitutional: Appearance: Normal appearance. She is well-developed. Genitourinary: Vulva normal. Vaginal cuff intact. Cervix is absent. Uterus is absent. Breasts: Breasts are soft. Right: Normal. Left: Normal. Cardiovascular: Rate and Rhythm: Normal rate and regular rhythm. Abdominal: General: Bowel sounds are normal. There is no distension. Palpations: Abdomen is soft. Tenderness: There is no abdominal tenderness. There is no guarding or rebound. Musculoskeletal: General: No swelling. Normal range of motion. Right lower leg: No edema. Left lower leg: No edema. Neurological: Mental Status: She is alert and oriented to person, place, and time. Skin: General: Skin is warm and dry. Psychiatric: Mood and Affect: Mood normal. Behavior: Behavior normal. Vitals and nursing note reviewed. Exam conducted with a antenna installer present. Vitals: Estimated body mass index is 26.78 kg/m as calculated from the following: Height as of 24: 5' 4 . Weight as of this encounter: 156 lb. BP: 124/72 No LMP recorded. Patient has had a hysterectomy. ASSESSMENT & PLAN ICD-10-CM 1. LGSIL Pap smear of vagina R87.622 THIN PREP TIS PAP AND HR HPV DNA 2. H/O: hysterectomy Z90.710 THIN PREP TIS PAP AND HR HPV DNA Repeat Pap: Patient presents today for a repeat pap. Previous pap results were reviewed and noted to be LGSIL and HPV -. Question regarding previous results were discussed. Repeat Pap was obtained without difficulty. Breast exam performed- left breast discomfort from pt desired breast exam. Follow Up: Patient is to return to the office in 6 months for an annual exam. Documented by Kenzie De La Paz LPN on behalf of: Floyd Whitaker DO documented in this encounter [facility] 01-09-2025 Miscellaneous Notes Patient cancelled appointment with Torsten Sim CNP via the automated reminder system on 01/08/25. I called Sherry in attempt to see if she would like to reschedule this appointment. A message was left on her voicemail to call the office back as I was unable to make contact. documented in this encounter [facility] 01-09-2025 Telephone encounter Note Patient cancelled appointment with Torsten Sim CNP via the automated reminder system on 01/08/25. I called Sherry in attempt to see if she would like to reschedule this appointment. A message was left on her voicemail to call the office back as I was unable to make contact. [facility] 12-23-2024 Telephone encounter Note Approvals with refills [facility] 12-23-2024 Miscellaneous Notes Approvals with refills documented in this encounter [facility] 11-20-2024 Telephone encounter Note Pt is scheduled for wellness 11/28/24 and is requesting a mammogram order be placed. She is going to try to schedule it with [facility] for the same day if possible. [facility] 11-20-2024 Miscellaneous Notes Pt is scheduled for wellness 11/28/24 and is requesting a mammogram order be placed. She is going to try to schedule it with [facility] for the same day if possible. documented in this encounter [facility] 07-22-2024 History of Presen t illness Narrative Reason for Appointment: Patient ID: Sherry Moura is a 39 y.o. female who presents for Abnormal Pap Smear (Pt present today for a Colposcopy. Pt had a LGSIL pap on 06/24/2024.) Patient presents today for colposcopy, Acute Visit., and Consult appointment. MEDICATIONS Current Outpatient Medications Medication Instructions calcium carbonate (TUMS) 200 mg, Oral, Daily RT cyclobenzaprine (FLEXERIL) 5 mg, Oral, 3 times daily PRN dicyclomine (Bentyl) 10 MG capsule take 1 capsule by mouth four times a day BEFORE MEALS AND NIGHTLY estradiol (ESTRACE) 0.5 mg, Oral, Daily famotidine (Pepcid) 20 MG tablet Oral pantoprazole (PROTONIX) 40 mg, Oral, Daily before breakfast ALLERGIES No Known Allergies PROBLEMS Active Ambulatory Problems Diagnosis Date Noted Slow transit constipation 04/06/2023 Anxiety 07/05/2023 Bilateral headaches 07/05/2023 Cervical dysplasia 07/05/2023 Cyst of thyroid ([facility]/HCC) 07/05/2023 Gastritis, bile acid reflux 07/05/2023 H/O: hysterectomy 07/05/2023 Irregular menses 07/05/2023 Lesion of skin of breast 07/05/2023 LPRD (laryngopharyngeal reflux disease) 07/05/2023 Nontoxic single thyroid nodule ([facility]/HCC) 07/05/2023 Obsessive compulsive disorder (CMS/HCC) 07/05/2023 Other chronic pain 07/05/2023 Pain of breast 07/05/2023 Papanicolaou smear of vagina with low grade squamous intraepithelial lesion (LGSIL) 07/05/2023 Pharyngoesophageal dysphagia 07/05/2023 Reduced libido 07/05/2023 Subclinical hyperthyroidism (CMS/HCC) 07/05/2023 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 Resolved Ambulatory Problems Diagnosis Date Noted No Resolved Ambulatory Problems Past Medical History: Diagnosis Date Atypical nevi COVID-01/2021 Gastro-esophageal reflux disease without esophagitis History of abnormal cervical Pap smear History of HPV infection IBS (irritable bowel syndrome) 2012 Thyroid cyst (CMS/HCC) HISTORY PAST MEDICAL HISTORY SOCIAL HISTORY Past Medical History: Diagnosis Date Atypical nevi Cervical dysplasia COVID-19 01/2021 Gastro-esophageal reflux disease without esophagitis History of abnormal cervical Pap smear pt had ablation x2 then hysterectomy History of HPV infection IBS (irritable bowel syndrome) 2012 Subclinical hyperthyroidism (CMS/HCC) Thyroid cyst (CMS/HCC) Social History Tobacco Use Smoking status: Never Smokeless tobacco: Not on file Vaping Use Vaping status: Never Used Substance Use Topics Alcohol use: Never Comment: Caffeine: 1-2 cups/day coffee Drug use: Never FAMILY HISTORY Family History Problem Relation Name Age of Onset Diabetes Mother Melanoma Mother's Brother Mental illness Paternal Grandfather Celiac disease Other Colon cancer Other Colonic polyp Other Ulcerative colitis Other Crohn's disease Other SURGICAL HISTORY Past Surgical History: Procedure Laterality Date BUNIONECTOMY 2009 CERVICAL BIOPSY W/ LOOP ELECTRODE EXCISION 2010 Cervical Dysplasia SECTION, LOW TRANSVERSE 2010 COLONOSCOPY 2012 IBS EGD 2012 with biopsy [facility] 8 months ago for breast pain (noted 04/06/2023) PAP SMEAR 07/03/2022 ASCUS PARTIAL HYSTERECTOMY 01/03/2019 REVIEW OF SYSTEMS Review of Systems: Review of Systems Constitutional: Negative. HENT: Negative. Eyes: Negative. Respiratory: Negative. Cardiovascular: Negative. Gastrointestinal: Negative. Genitourinary: Negative. Musculoskeletal: Negative. Skin: Negative. Neurological: Negative. All other systems reviewed and are negative. Hematological: Negative. Endocrine: Negative. Allergic/Immunologic: Negative. OBJECTIVE Objective: Physical Exam Constitutional: Appearance: Normal appearance. She is well-developed. Genitourinary: Vulva normal. Vaginal cuff intact. Cervix is not absent. Uterus is not absent. Cardiovascular: Rate and Rhythm: Normal rate and regular rhythm. Abdominal: General: Bowel sounds are normal. There is no distension. Palpations: Abdomen is soft. Tenderness: There is no abdominal tenderness. There is no guarding or rebound. Musculoskeletal: General: No swelling. Normal range of motion. Right lower leg: No edema. Left lower leg: No edema. Neurological: Mental Status: She is alert and oriented to person, place, and time. Skin: General: Skin is warm and dry. Psychiatric: Mood and Affect: Mood normal. Behavior: Behavior normal. Vitals and nursing note reviewed. Exam conducted with a antenna installer present. Vitals: Estimated body mass index is 26.09 kg/m as calculated from the following: Height as of 24: 5' 4 . Weight as of this encounter: 152 lb. BP: 118/72 No LMP recorded. Patient has had a hysterectomy. ASSESSMENT & PLAN ICD-10-CM 1. LGSIL Pap smear of vagina R87.622 Colposcopy 2. H/O: hysterectomy Z90.710 Colposcopy: Patient is doing well and has no complaints. Pap results have been reviewed with the patient in great detail and patient voiced understanding. Patient presents today for a Colposcopy with spatula scraping 9 oclock. Patient was placed in dorsal lithotomy position with feet in stirrups, a sterile speculum was placed into the vagina and the cervix was visualized. Cervix was cleansed with vinegar. Postprocedural instructions given. All if patients questions answered and she expressed understanding. Advised to call in interim with questions or concerns. Follow Up: Patient is to return in 6 months for Repeat Pap. Documented by Kenzie De La Paz LPN on behalf of: Floyd Whitaker DO documented in this encounter [facility] 02-08-2024 History of Presen t illness Narrative Images from the original note [...] Surgical History: Procedure Laterality Date COLONOSCOPY IN [facility] 12/2018December 2018 No Known Allergies [...] patient/family/caregiver Referring and communicating with other health rn transitional care Irritable bowel syndrome, unspecified type [K58.9] MIKO LINDSAY [facility] General Surgery [place] This note was created with the assistance of a speech recognition program. While intending to generate a timely document that accurately reflects the content of the visit, no guarantee can be provided that every grammatical or spelling mistake has been or will be identified or corrected. Thank you for your understanding. MIKO Lindsay 02/11/24 1245 documented in this encounter [facility] 08-28-2022 Note PROCEDURE: [place] VCT 64, 5 mm slice axial images [...] signed by Kuldip Mccormick on 08/29/2022 0736 [facility] Staying Machine Operator Evaluation note Diagnosis LGSIL Pap smear of vagina Papanicolaou smear of vagina with low grade squamous intraepithelial lesion (LGSIL) H/O: hysterectomy Acquired absence of both cervix and uterus [facility] Diagnosis Gastroesophageal reflux disease with esophagitis without hemorrhage documented in this encounter [facility]* Diagnosis Irritable bowel syndrome, unspecified type- Primary Abdominal bloating Flatulence, eructation, and gas pain Gastroesophageal reflux disease, unspecified whether esophagitis present [facility] Diagnosis LGSIL Pap smear of vagina Papanicolaou smear of vagina with low grade squamous intraepithelial lesion (LGSIL) H/O: hysterectomy Acquired absence of both cervix and uterus documented in this encounter [facility] HealthcareInstructionsNot on filedocumented in this encounterProFire[facility] SystemInstructionsNot on filedocumented in this encounterProFirelands Regional [facility] System Summary Purpose Family History No Family History Records FoundNo Family History Records FoundNo Family History Records FoundNo Family History Records FoundNo Family History Records Found Advance Directives No Advanced Directives Records FoundNo Advanced Directives Records FoundNo Advanced Directives Records FoundNo Advanced Directives Records FoundNo Advanced Directives Records Found Additional Source Comments Care Teams (unrecognized sec tion and content) Machine Lead Burner Relationship Specialty Start Date End Date Tamera Mccarthy MD [address] [facility] [place] [address] PCP - General 06/20/18 Machine Lead Burner Relationship Specialty Start Date End Date Tamera Mccarthy MD [address] [facility] [address] [place], [place] [id number] PCP - General Family Medicine 03/27/23 Machine Lead Burner Relationship Specialty Start Date End Date Tamera Mccarthy MD [address] [place] [address] PCP - General Family Medicine 03/27/23 Machine Lead Burner Relationship Specialty Start Date End Date Tamera Mccarthy MD [address] [facility] [place] [address] PCP - General Family Medicine 03/27/23 Machine Lead Burner Relationship Specialty Start Date End Date Tamera Mccarthy MD [address] [facility] [place] [address] PCP - General Family Medicine 03/27/23 Machine Lead Burner Relationship Specialty Start Date End Date Tamera Mccarthy MD [address] [facility] [place] [address] PCP - General Family Medicine 02/08/24 Machine Lead Burner Relationship Specialty Start Date End Date Tamera Mccarthy MD PCP - General Family Medicine 02/08/24 Machine Lead Burner Relationship Specialty Start Date End Date Tamera Mccarthy MD [address] [facility] [place] [address] PCP - General Family Medicine 03/27/23 Machine Lead Burner Relationship Specialty Start Date End Date Tamera Mccarthy MD [address] [place] [address] PCP - General Family Medicine 03/27/23 INFORMATION SOURCE (unrecogn ized section and content) DATE CREATED AUTHOR 11/21/2022 [facility] dical Specialist DATE CREATED AUTHOR AUTHOR'S ORGANIZ ATION 01/18/2023 [facility] DATE CREATED AUTHOR AUTHOR'S ORGANIZ ATION 02/10/2024 [facility] DATE CREATED AUTHOR AUTHOR'S ORGANIZ ATION 05/02/2024 [facility] DATE CREATED AUTHOR AUTHOR'S ORGANIZ ATION 12/16/2024 [facility] dical Specialists EPIC Reason for Visit (unrecogniz ed section and content) Reason Comments Abnormal Pap Smear Pt present today for a Colposcopy. Pt had a LGSIL pap on 06/24/2024. Reason Comments Med Change Request Reason Comments BOWEL CHANGES IBS , REFERRED BY GUTIERREZ ROGERS, LABORATORY MILLER, PT HAS [facility] Bloated Abdominal Pain Heartburn Specialty Diagnoses / Procedures Referred By Eron stubbs Referred To Contact General Surgery Diagnoses Irritable bowel syndrome, unspecified type Procedures FL OFFICE OUTPATIENT VISIT 60-74 MINS HIGH MDM AMB REFERRAL TO GENERAL SURGERY Gordon Rogers, OBSTETRICS/GYNECOLOGY NURSE-GAS ENGINE OPERATOR [employer] [address] [place] [address] Brody Mccray MD [address] [place] [address] Referral ID Status Reason Start Date Expiration Date V isits Requested Visits Authorized [id number] Pending Review 01/17/2024 07/15/2024 1 1 Reason Comments Abnormal Pap Smear Pt present today for a repeat pap smear. Pt had a LGSIL on 06/24/2024. FOR RECORDS PERTAINING TO PATIENTS WHO ARE [...] BE BASED ON THE PRIMARY CLINICAL RECORDS. [employer] provides no warranty or guarantee of the accuracy or completeness of information in this document.
[2025-02-23 17:08] LABS: HPV Aptima Negative (Negative); Pap IG (Image Guided) Note (.)
== END 2025-02-17 18:28 | disposition home or self-care (01) ==
LOC: LAB 18:27
PROVIDERS: PCP Family Medicine; Visit Provider Obstetrics & Gynecology
DX: R87.622 Low grade squamous intraepithelial lesion on cytologic smear of vagina (LGSIL) (principal); Z90.710 Acquired absence of both cervix and uterus
CPT/HCPCS: 87624; 88175

== ENCOUNTER 2025-07-27 17:46 | Emergency (ER) | payer OTHER, SELFPAY ==
[2025-07-27 17:55] VITALS: BP 160/88; PULSE 68; TEMP 36.9; O2SAT 99; BMI 24.9
--- NOTE | 2025-07-27 18:30 | CT_ITS ---
[address] [address] Patient Name: MATIAS TOMLIN MRN: [id number] date: 1985 Sex: F Assigned Patient Location: ER Current Patient Location: ER Accession/Order Number: [id number] Exam Date: 07/27/2025 19:04 Report Date: 07/27/2025 19:47 At the request of: ABIGAIL WHITLEY Procedure: CT abdomen pelvis wo con CT ABDOMEN AND PELVIS WITHOUT INTRAVENOUS CONTRAST: CLINICAL HISTORY: Left flank pain COMPARISON: 04/29/2021 TECHNIQUE: Spiral images were obtained through the abdomen and pelvis without intravenous contrast. This CT exam was performed using one or more following dose reduction techniques: Automated exposure control, adjustment of the mA and/or kV according to patient size, or use of iterative reconstruction technique. FINDINGS: Lung Bases: [Lung bases are clear.] Organs:Liver, spleen, adrenals, kidneys, pancreas and gallbladder unremarkable. Negative for nephrolithiasis. No hydronephrosis.[ GI: Moderate stool burden. Appendix not visualized. No pericecal inflammatory changes.[ Pelvis:[Bladder and unremarkable. No adnexal mass.] Peritoneum/Retroperitoneum:No free air or free fluid. Aorta normal caliber.[ Abd wall/Bones:Degenerative changes lower lumbar spine.[ CT/CT abdomen pelvis wo con IMPRESSION: Moderate stool burden. Negative acute inflammatory process or bowel obstruction. Impression dictated by: Harrison Swan M.D. 07/27/2025 7:47 PM Dictation Location: [place] [address] Electronically authenticated by: [id number] Y Date: 07/27/2025 19:47
--- NOTE | 2025-07-27 18:31 | ED_ITS ---
HPI HPI - General Adult General Chief complaint: Abdominal Pain Stated complaint: ABDOMINAL AND LOWER BACK PAIN Time Seen by Provider: 07/27/25 18:11 Source: patient Mode of arrival: walk-in Limitations: no limitations History of Present Illness HPI narrative: Patient is a 40-year-old female with a past medical history of IBS that presents to the emergency department with complaints of a few weeks of left sided low back/flank pain that has worsened in the past 4 days. She denies any urinary symptoms such as dysuria, urinary frequency, urgency, or retention. She states that she has had some anal leakage. She is not established with a GI physician but does have an appointment coming up. She has been passing flatus, admits to abdominal bloating, but deneis denies any pain. She did have soft bowel movements yesterday and denies melena or hematochezia. Related Data Home Medications ?Medication ?Instructions ?Recorded ?Confirmed No Known Home Medications 07/27/25 090 07/13 Allergies Allergy/AdvReac Type Severity Reaction Status Date / Time No Known Drug Allergies Allergy Verified 07/27/25 17:55 Opioid HPI Opioid Management Most Recent Opioid Data: Last Pain Scale 5 07/27/25, 17:55 Review of Systems ROS Status of ROS 10 or more systems reviewed and unremark able except as noted in history and below PFSH PFSH Social History Little interest or pleasure in doing things: not at all Feeling down, depressed, or hopeless: not at all Exam Constitutional Vital Signs, click to edit/add: Last Vital Signs Temp 98.4 F 07/27/25 17:55 Pulse 68 07/27/25 17:55 Resp 18 07/27/25 17:55 BP 160/88 H 07/27/25 17:55 Pulse Ox 99 07/27/25 17:55 O2 Del Method Room Air 07/27/25 17:55 Documenting provider has reviewed patient's vital signs: yes Common normals: no apparent distress, average body habitus, oriented x3, healthy appearing and alert [facility] Common normals: normocephalic, hearing grossly normal bilaterally, external ears normal, external nose normal and dentition normal Neck & C-Spine Common normals: full ROM and supple General: normal visual inspection Lymph Lymphatic: no lymphadenopathy noted Chest Common normals: inspection of chest normal Respiratory Common normals: normal respiratory effort Effort & inspection: able to speak in complete sentences Auscultation: clear to auscultation bilaterally Cardio Common normals: no JVD, regular rate, regular rhythm, no gallops, no clicks, no murmurs and no rub GI Common normals: soft to palpation, non-tender, no hepatosplenomegaly and no masses Inspection: normal to inspection and abdominal distension (lower quadrant distention, non tender) Extremity Common normals: normal to inspection, full ROM, no calf tenderness and no pedal edema Neuro Common normals: oriented x3, CN's II-XII intact bilaterally, moves all extremities, no focal motor deficits and no sensory deficits noted Psych Common normals: mental status grossly normal Course Vital Signs Vital signs: Vital Signs Temperature 98.4 F 07/27/25 17:55 Pulse Rate 68 07/27/25 17:55 Respiratory Rate 18 07/27/25 17:55 Blood Pressure 160/88 H 07/27/25 17:55 Pulse Oximetry 99 07/27/25 17:55 Oxygen Delivery Method Room Air 07/27/25 17:55 Temperature 98.4 F 07/27/25 17:55 Pulse Rate 68 07/27/25 17:55 Respiratory Rate 18 07/27/25 17:55 Blood Pressure 160/88 H 07/27/25 17:55 Pulse Oximetry 99 07/27/25 17:55 Oxygen Delivery Method Room Air 07/27/25 17:55 Medical Decision Making [facility] Narrative Medical decision making narrative: The patient is a 40 yr old female with a PMH of IBS that presented to the ED with complaints of 3 weeks of left sided flank/low back pain for 3 weeks, worse in the past 4 days. She also has been having abdominal distention and anal leakage. She denied abdominal pain and had bowel movements yesterday without melena, hematochezia, diarrhea, nausea, or vomiting. She denied urinary symptoms, hematuria, dysuria, urinary frequency, urgency, or retention. No history of kidney stones. PSH of hysterectomy. Work-up: - CT Ab/Pel wo was negative for nephrolithiasis, inflammatoy process, or bowel obstruction. Positive for moderate stool burden consistent with constipation. - UA neg for UTI or hematuria - CBC wnl no evidence for infection or anemia, BNP wnl Constipation on CT may be contributing to patient's back pain and bloating and possibly the sensation of anal leakage, which may represent overflow or incomplete evacuation. No evidence on CT for abscess, obstruction, or other pathology. Given her IBS this may represent a constipation-predominant flare. At this time no findings suggest an emergent cause for her symptoms. She is hemodynamically stable, afebrile, and tolerating PO foods and liquids. Plan: - Continue with OTC bowel regimen to treat constipation. - She has an appointment scheduled [facility]. - Patient discharged with return precautions of worsening pain, fever, inability to have a bowel movement, or new urinary symptoms. Differential Diagnosis Differential Diagnosis: Nephrolithiasis, Constipation, Partial SBO Lab Data Labs: Lab Results 07/27/25 07/27/25 Range/Units 18:00 18:10 WBC 9.3 (4.0-11.0) 10^3/uL RBC 3.96 L (4.20-5.40) 10^6/uL Hgb 12.7 (12.0-16.0) g/dL Hct 36.9 (36.0-48.0) % MCV 93.2 (81.0-99.0) fL MCH 32.1 (26.7-34.0) pg MCHC 34.4 (29.9-35.2) g/dL RDW 11.6 (11.0-15.0) % Plt Count 295 (150-450) 10^3/uL MPV 9.9 (9.5-13.5) fL Neut % (Auto) 49.3 (43.0-75.0) % Lymph % (Auto) 40.3 (20.5-60.0) % [place] % (Auto) 9.0 (1.7-12.0) % Eos % (Auto) 0.9 (0.9-7.0) % Baso % (Auto) 0.3 (0.2-2.0) % Neut # (Auto) 4.6 (1.4-6.5) 10^3/uL Lymph # (Auto) 3.7 (1.2-3.8) 10^3/uL [place] # (Auto) 0.8 (0.3-0.8) 10^3/uL Eos # (Auto) 0.1 (0.0-0.7) 10^3/uL Baso # (Auto) 0.0 (0.0-0.1) 10^3/uL Abs Immat Gran (auto) 0.02 (0.00-0.03) 10^3/uL Imm/Tot Granulo (auto) 0.2 (0.0-0.5) % Sodium 141 (136-145) mmol/L Potassium 3.5 (3.5-5.1) mmol/L Chloride 105 (98-107) mmol/L Carbon Dioxide 27.0 (21.0-32.0) mmol/L Anion Gap 12.5 BUN 16.0 (7.0-18.0) mg/dL Creatinine 0.97 (0.55-1.02) mg/dL Est GFR ( Amer) >60 (>=60 mL/min/1.73m^2) Est GFR (Non-Af Amer) >60 (>=60 mL/min/1.73m^2) BUN/Creatinine Ratio 16.5 Glucose 88 (74-106) mg/dL Calcium 8.0 L (8.5-10.1) mg/dL Urine Color Lt. yellow (YELLOW) Urine Clarity Clear (CLEAR) Urine pH 6.0 (5.0-9.0) Ur Specific [place] <=1.005 A (1.005-1.025) Urine Protein Negative (NEG/TRACE) mg/dL Urine Glucose (UA) Negative (NEGATIVE) mg/dL Urine Ketones Negative (NEGATIVE) mg/dL Urine Occult Blood Negative (NEGATIVE) Urine Nitrite Negative (NEGATIVE) Urine Bilirubin Negative (NEGATIVE) Urine Urobilinogen 0.2 (0.2-1.0) EU/dL Ur Leukocyte Esterase Negative (NEGATIVE) Urine HCG, Qual Negative (NEGATIVE) Imaging Data CT scan - abdomen: Attestation: I have reviewed the pertinent imaging results. Radiologist's impression: ITS Impressions Abdomen/Pelvis CT 07/27/25 18:30 IMPRESSION: Moderate stool burden. Negative acute inflammatory process or bowel obstruction. Impression dictated by: Harrison Swan M.D. 07/27/2025 7:47 PM Dictation Location: [place] [address] Electronically authenticated by: [id number] Y Date: 07/27/2025 19:47 Discharge Plan Discharge Chief Complaint: Abdominal Pain Clinical Impression: Constipation Patient Disposition: Home, Self-Care Time of Disposition Decision: 20:57 Condition: Good Mode of Transportation: Private Vehicle Prescriptions / Home Meds: No Action No Known Home Medications Print Language: Croatian Instructions: Constipation (DC) Referrals: Madi Kat MD [Primary Care Provider, Family Practice] - 1 week Discharge Date/Time: 07/27/25 21:30
[2025-07-27 18:34] LABS: Hematocrit 36.9 % (36.0-48.0); Hemoglobin 12.7 g/dL (12.0-16.0); Immature Granulocytes Abs Auto 0.02 10^3/uL (0.00-0.03); Immature Granulocytes Pct Auto 0.2 % (0.0-0.5); Lymphocytes Absolute Auto 3.7 10^3/uL (1.2-3.8); Mean Corpuscular HGB Conc 34.4 g/dL (29.9-35.2); Mean Corpuscular Hemoglobin 32.1 pg (26.7-34.0); Mean Corpuscular Volume 93.2 fL (81.0-99.0); Platelet Count 295 10^3/uL (150-450); Red Blood Count 3.96 10^6/uL (4.20-5.40); White Blood Count 9.3 10^3/uL (4.0-11.0)
[2025-07-27 18:35] LABS: Glucose Urine UA NEGATIVE (NEGATIVE)
[2025-07-27 18:37] LABS: Anion Gap 12.5; Blood Urea Nitrogen 16.0 mg/dL (7.0-18.0); Calcium 8.0 mg/dL (8.5-10.1); Carbon Dioxide 27.0 mmol/L (21.0-32.0); Chloride 105 mmol/L (98-107); Estimated GFR (African America >60 (>=60 mL/min/1.73m^2); Estimated GFR (Non-African Ame >60 (>=60 mL/min/1.73m^2); Glucose 88 mg/dL (74-106); Potassium 3.5 mmol/L (3.5-5.1); Sodium 141 mmol/L (136-145)
[2025-07-27 18:38] LABS: HCG Qualitative Urine* NEGATIVE (NEGATIVE)
== END 2025-07-27 21:30 | disposition home or self-care (01) ==
PROVIDERS: Physician Assistant; Emergency Provider Emergency Medicine; PCP Family Medicine
DX: K58.1 Irritable bowel syndrome with constipation (principal)
CPT/HCPCS: 36415; 74176; 80048; 81003; 84703; 85025; 99285

== ENCOUNTER 2025-09-29 19:44 | Outpatient (REF) | payer OTHER, SELFPAY ==
--- OUTSIDE RECORDS SUMMARY | 2025-09-29 14:30 | XMS_ITS | Encounter Summary ---
Author Organization [facility] Address [address] [place] [address] Care Team Providers Care Edger Machine Helper Name Role Phone Tamera Mccarthy MD Primary Care Provider Reason for Visit * ReasonCommentsGynecologic Exam Encounter Details DateTypeDepartmentCare Team (Latest Contact Info)Qleshgofboy11/11/2025 2:30 PM ESTOffice Visit [facility] [address] [place] [phone] Gabriel Whitaker DO [address] [place] [facility], [facility]11 Well woman exam with routine gynecological exam; H/O: hysterectomy; Breast cancer screening by mammogram Social History Tobacco UseTypesPacks/DayYears UsedDateSmoking Tobacco: NeverSmokeless Tobacco: NeverAlcohol UseStandard Drinks/WeekCommentsNever0 (1 standard drink = 0.6 oz pure alcohol)Caffeine: 1-2 cups/day [id number] Health LiteracyAnswerDate RecordedHow often do you need to have someone help you when you read instructions, pamphlets, or other written material from your doctor or pharmacy? Never12/06/2024Social Connection and Isolation PanelAnswerDate RecordedIn a typical week, how many times do you talk on the phone with family, friends, or neighbors?Twice a week12/06/2024How often do you get together with friends or relatives?Twice a week12/06/2024How often do you attend spiritism or yazidism services?1 to 4 times per year12/06/2024Do you belong to any clubs or organizations such as spiritism groups, unions, fraternal or athletic groups, or school groups?No12/06/2024How often do you attend meetings of the clubs or organizations you belong to?Never12/06/2024re you , , , , never , or living with a partner?Vjmmqxw0712/06/2024UDIT-C AnswerDate RecordedQ1: How often do you have a drink containing alcohol?Never 12/06/2024Q2: How many drinks containing alcohol do you have on a typical day when you are drinking?Patient does not drink12/06/2024Q3: How often do you have six or more drinks on one occasion?Never12/06/2024Overall Financial Resource Strain (CARDIA)AnswerDate RecordedHow hard is it for you to pay for the very basics like food, housing, medical care, and heating?Not hard at all12/06/2024 [facility] [place] [facility] [employer] - Occupational Stress Questionnaire AnswerDate RecordedDo you feel stress - tense, restless, nervous, or anxious, or unable to sleep at night because yourmind is troubled all the time - these days? Not at all12/06/2024Exercise Vital SignAnswerDate RecordedOn average, how many days per week do you engage in moderate to strenuous exercise (like a brisk [employer])?5 days12/06/2024On average, how many minutes do you engage in exercise at this level?70 min12/06/2024Hunger Vital SignAnswerDate RecordedWithin the past 12 months, you worried that your food would run out before you got the money to buymore.Never true12/06/2024Within the past 12 months, the food you bought just didn't last and you didn't have money to get more.Never true12/06/2024PRAPARE - TransportationAnswerDate RecordedIn the past 12 months, has lack of transportation kept you from medical appointments or from getting medications?No 12/06/2024In the past 12 months, has lack of transportation kept you from meetings, work, or from getting things needed for daily living?No12/06/2024 Housing Stability Vital SignAnswerDate RecordedIn the last 12 months, was there a time when you were not able to pay the mortgage or rent on time?No12/06/2024In the past 12 months, how many times have you moved where you were living?0 12/06/2024t any time in the past 12 months, were you homeless or living in a fci (including now)?No12/06/2024CommentsNoSex and Gender Information ValueDate RecordedSex Assigned at PmokwLmbwvw94/02/2023 8:22 AM EDTLegal Sex Vuxkzb5301/31/2023 7:18 PM EDTGender PgsjgfjaNbttqc77/02/2023 8:22 AM EDTSexual OrientationNot on filedocumented as of this encounter Last Filed Vital Signs Vital SignReadingTime TakenCommentsBlood Chrftzfa665/8611 2:42 PM EST Pulse--Temperature--Respiratory Rate--Oxygen Saturation--Inhaled Oxygen Concentration--Czexps97 kg (158 lb 12.8 oz)09/29/2025 2:42 PM ESTHeight--Body Mass Index27.2608 12:10 PM EDTdocumented in this encounter Progress Notes * Kenzie De La Paz LPN - 09/29/2025 2:30 PM EST Reason for Appointment: Patient ID: Sherry Moura is a 40 y.o. female who presents for Gynecologic Exam Patient presents today for Annual Exam. MEDICATIONS Current Outpatient Medications Medication Instructions calcium carbonate (TUMS) 200 mg, Daily RT estradiol (ESTRACE) 0.5 mg, Oral, Daily, Take 1 tablet by mouth for 30 days ketoconazole (NIZOral) 2 % shampoo Lather on body, leave on 5 min before rinsing, 2-3 times a week,30 day supply omeprazole (PRILOSEC) 40 mg, Daily before breakfast ALLERGIES No Known Allergies PROBLEMS Active Ambulatory Problems Diagnosis Date Noted Slow transit constipation 04/06/2023 Anxiety 07/05/2023 Bilateral headaches 07/05/2023 Cervical dysplasia 07/05/2023 Cyst of thyroid 07/05/2023 Gastritis, bile acid reflux 07/05/2023 H/O: hysterectomy 07/05/2023 Irregular menses 07/05/2023 Lesion of skin of breast 07/05/2023 LPRD (laryngopharyngeal reflux disease) 07/05/2023 Nontoxic single thyroid nodule 07/05/2023 Obsessive compulsive disorder 07/05/2023 Other chronic pain 07/05/2023 Pain of breast 07/05/2023 Papanicolaou smear of vagina with low grade squamous intraepithelial lesion (LGSIL) 07/05/2023 Pharyngoesophageal dysphagia 07/05/2023 Reduced libido 07/05/2023 Subclinical hyperthyroidism 07/05/2023 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 Resolved Ambulatory Problems Diagnosis Date Noted No Resolved Ambulatory Problems Past Medical History: Diagnosis Date Atypical nevi COVID-01/2021 Gastro-esophageal reflux disease without esophagitis History of abnormal cervical Pap smear History of HPV infection IBS (irritable bowel syndrome) 2012 Inflammatory bowel disease 11/2010 Thyroid cyst HISTORY PAST MEDICAL HISTORY SOCIAL HISTORY Past Medical History: Diagnosis Date Atypical nevi Cervical dysplasia COVID-19 01/2021 Gastro-esophageal reflux disease without esophagitis History of abnormal cervical Pap smear pt had ablation x2 then hysterectomy History of HPV infection IBS (irritable bowel syndrome) 2012 Inflammatory bowel disease 11/2010 Subclinical hyperthyroidism Thyroid cyst Social History Tobacco Use Smoking status: Never [...] 2009 CERVICAL BIOPSY W/ LOOP ELECTRODE EXCISION 2011 Cervical Dysplasia SECTION, LOW TRANSVERSE 2010 COLONOSCOPY [...] nursing note reviewed. Exam conducted with a phlebotomy supervisor present. Vitals: Estimated body mass index is 27.26 kg/m?? as calculated from the following: Height as of 06/24/24: 5' 4 . Weight as of this encounter: 158 lb 12.8 oz. BP: 126/86 No LMP recorded. Patient has had a hysterectomy. ASSESSMENT & PLAN ICD-10-CM 1. Well woman exam with routine gynecological exam Z01.419 THIN PREP TIS PAP AND HR HPV DNA 2. H/O: hysterectomy Z90.710 THIN PREP TIS PAP AND HR HPV DNA 3. Breast cancer screening by mammogram Z12.31 Bilateral screening mammogram Bilateral screening mammogram Orders Placed This Encounter Procedures Bilateral screening mammogram Annual Wellness Exam (Post Hysterectomy): Patient presents today for routine annual exam. Patient states she has no current complaints. Patients vitals were reviewed and within normal limits. Growth and development is noted to be appropriate for age. Menstrual history is noted to be obsolete due to patients history of hysterectomy. No mental health concerns was expressed. Pap Smear: Speculum was inserted into the vagina and pap was obtained without difficulty. HPV testing was performed per guidelines. Patient was advised that pap results could take anywhere from 7 to 10 days to receive and our office will reach out to the patient with those once we have them. Patient can also view results via [employer]. I reinforced importance of condom use for STI prevention. Patient declined cultures to be performed with today's visit. Breast Exam: Upon examination, clinical breast exam was noted to be normal. Patient was counseled on breast self-awareness, including the importance of knowing what is normal for her own breasts and promptly reporting any changes such as new lumps, skin dimpling, nipple discharge, or pain. Screening mammogram recommended annually beginning at age 40 or earlier if risk factors are present. Discussed signs and symptoms of breast cancer and when to seek medical attention. Answered all patient questions. Follow Up: Patient is to return to our office in one year for annual exam unless needed otherwise. Documented by Kenzie De La Paz LPN on behalf of: Gabriel Whitaker DO documented in this encounter Plan of Treatment DateTypeDepartmentCare Team (Latest Contact Info)Wjluwcpomqp41/10/2026 10:00 AM EDTOffice Visit [facility] [address] [place] [phone] Elaina Rdz PA [address] [place] [phone] 10/25/2026 4:00 PM ESTProcedure Visit [facility] [address] [place] [phone] Gabriel Whitaker DO [address] [place], [place] [id number] NameTypePriorityAssociated DiagnosesOrder ScheduleTHIN PREP TIS PAP AND HR HPV DNAPathology and CytologyRoutine Well woman exam with routine gynecological exam H/O: hysterectomy Ordered: 09/29/2025ilateral screening mammogramImagingRoutine Breast cancer screening by mammogram Expected: 09/29/2025 (Approximate), Expires: 11/29/2026documented as of this encounter Visit Diagnoses Diagnosis Well woman exam with routine gynecological exam Routine gynecological examination H/O: hysterectomy Acquired absence of both cervix and uterus Breast cancer screening by mammogram documented in this encounter Care Teams Team MemberRelationshipSpecialtyStart DateEnd Date Tamera Mccarthy MD [address] [place] [address] PCP - GeneralFamily Medicine03/27/23documented as of this encounter
--- OUTSIDE RECORDS SUMMARY | 2025-09-29 19:47 | XMS_ITS | CCD ---
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 Name Role Phone Tamera Mccarthy MD Primary Care Provider DR TAMERA MCCARTHY Primary Care Unavailable JULIANNE ., DR BARRIENTOS Admitting Unavailable JULIANNE ., DR BARRIENTOS Consulting Unavailable JULIANNE ., DR BARRIENTOS Attending Unavailable FABIO, DR FUNES Primary Care Unavailable JULIANNE ., DR BARRIENTOS Admitting Unavailable JULIANNE ., DR BARRIENTOS Consulting Unavailable JULIANNE ., DR BARRIENTOS Attending Unavailable SUNI BERKOWITZ Attending Unavailable GORDON ROGERS Referring Unavailab TAMERA Rosenberg Primary Care Unavailable FANI ABEBE Referring Unavailable TAMERA MCCARTHY Primary Care Unavailable Tamera Mccarthy MD Primary Care Provider [phone] Tamera Mccarthy MD Primary Care Provider [phone] Tamera Mccarthy MD Primary Care Provider TAMERA MCCARTHY Attending Unavailable TAMERA MCCARTHY Referring Unavailable GABRIEL WHITAKER Attending Unavailable ASIYA RDZ Attending Unavailable KENNEY LORENZANA Attending Unavailable GABRIEL WHITAKER Attending Unavailable Fabio LEDESMA [facility] Care Provider [phone] Melisa De Luna PA-C Attending Provider David Delgadillo MD Attending Provider Medications Current Medications MedicationDrug Class(es)DatesSig (Normalized)Sig (Original)baclofen 20 mg oral tablet (2 sources)gamma-Aminobutyric Acid-ergic AgonistStart: 70-46-8208ftvf 1 tablet by mouth twice dailybaclofen (LIORESAL) 20 MG tablet Take 1 tablet by mouth 2 times daily 20 tablet 0 03/16/2019 ActiveStart: 15-01-8057wtck 1 tablet by mouth once daily as needed for muscle spasmsBaclofen 5 MG TABS Indications: Arthralgia of left temporomandibular joint Take 5 mg by mouth nightly as needed (spasm) 20 tablet 0 06/20/2018 Activecalcium carbonate 500 mg chewable tablet (2 sources)calcium carbonate (TUMS) 200 mg elemental (500 mg) chewable tablet Chew 1 tablet (200 mg total) andswallow in the morning. Activecalcium carbonate (Tums) 250 mg (kasigl[place] 100 mg) chewable split tablet (13 sources)calcium carbonate (Tums) 250 mg (kasigluk 100 mg) chewable split tablet Take 200 mg by mouth in the morning. Activecyclobenzaprine hydrochloride 10 mg oral tablet (7 sources)Muscle RelaxantStart: 07-07-2025 End: 10-65-4150gppa 0.5 tablet by mouth at bedtimecyclobenzaprine (Flexeril) 10 MG tablet Indications: Chronic bilateral low back pain without sciatica Take 0.5 tablets (5 mg) by mouth at bedtime for 14 days 7 tablet 07/07/2025 07/21/2025 ActiveStart: 06-24-2024 End: 11-98-8623ayan 0.5 tablet by mouth three times daily as needed for muscle spasmscyclobenzaprine (Flexeril) 10 MG tablet Indications: Acute low back pain, unspecified back pain laterality, unspecified whether sciatica present Take 0.5 tablets (5 mg) by mouth 3 (three) times a dayas needed for muscle spasms for up to 10 days 30 tablet 06/24/2024 02/17/2025 Discontinued (Therapycompleted) dicyclomine hydrochloride 10 mg oral capsule (15 sources)AnticholinergicStart: 36-14-7080jtlgmiizbkx (Bentyl) 10 MG capsule 02/08/2024 Activeestradiol 0.5 mg oral tablet (12 sources)EstrogenStart: 02-17-2025 End: 64-06-4199hxyt 1 tablet by mouth once dailyStart: 12-04-2023 End: 25-05-2707qkjq 1 tablet by mouth in the morningestradiol (Estrace) 0.5 MG tablet Indications: Decreased libido Take 1 tablet (0.5 mg) by mouth in the morning. 30 tablet 11 12/04/2023 12/03/2024 Activeketoconazole 20 mg/ml medicated shampoo (5 sources)Azole AntifungalStart: 39-30-5679vpyawgwtgugj (NIZOral) 2 % shampoo Indications: Tinea versicolor Lather on body, leave on 5 min before rinsing, 2-3 times a week, 30 day supply 120 mL 11 05/29/2025 Activeomeprazole 40 mg delayed release oral capsule (1 source)Proton Pump InhibitorStart: 60-86-6420pgec 1 capsule by mouth once daily Completed/Discontinued Medications MedicationDrug Class(es)DatesSig (Normalized)Sig (Original)famotidine 20 mg oral tablet (13 sources)Histamine-2 Receptor AntagonistStart: 12-12-2024 End: 40-22-4740hict 1 tablet by mouth at bedtimefamotidine (Pepcid) 20 MG tablet Indications: Gastroesophageal reflux disease with esophagitis without hemorrhage Take 1 tablet (20 mg) by mouth at bedtime 90 tablet 3 12/12/2024 07/07/2025 Discontinuedfamotidine (Pepcid) 20 MG tablet Take by mouth Activepantoprazole 40 mg delayed release oral tablet (14 sources)Proton Pump InhibitorStart: 12-23-2024 End: 80-86-1255jzop 1 tablet by mouth before mealtimepantoprazole (ProtoNix) 40 MG EC tablet Indications: Gastroesophageal reflux disease with esophagitis without hemorrhage TAKE 1 TABLET BY MOUTH IN THE MORNING BEFORE a meal 100 tablet 11 12/23/2024 07/07/2025 DiscontinuedStart: 12-12-2024 End: 57-07-1506prgn 1 dose by mouth before mealtimepantoprazole (Protonix) 40 MG packet Indications: Gastroesophageal reflux disease with esophagitis without hemorrhage Take 1 packet (40 mg) by mouth in the morning. Take before meals. 100 packet 3 12/12/2024 12/23/2024 Discontinuedtake 40 mg by mouth before mealtime pantoprazole (Protonix) 40 MG packet Take 40 mg by mouth in the morning. Take before meals. Active Problems Active Problems Problem ClassificationProblemDateDocumented DateEpisodic/ChronicAbdominal pain (1 source)Abdominal painOnset: 68-67-0117EfkmleitNjrumje disorders (20 sources)Anxiety; Translations: [Anxiety disorder, unspecified]Onset: 508414-17-7768LarnahuGnlifmqgjz disorders (20 sources)Laryngopharyngeal reflux; Translations: [Gastro-esophageal reflux disease without esophagitis]Onset: 809720-01-3260DttefcvUzxap of unknown origin (1 source)Fever, unspecified; Translations: [Fever, unspecified]Onset: 74-16-5978WwuykgywAuzddlbmxkebt and screening for infectious disease (5 sources)Encounter for screening for human papillomavirus (HPV); Translations: [ENC SCREENING HUMAN PAPILLOMAVIRUS]Onset: 29-77-7723UokqkpmzMuaqflqfk disorders (13 sources)Irregular periods; Translations: [Irregular menstruation, unspecified]Onset: 833259-36-8425XehrrvkYtvlqfo (2 sources)Pityriasis versicolor; Translations: [Pityriasis versicolor] 79-69-7117UsluyxkjQssql and unspecified benign neoplasm (2 sources)Multiple benign melanocytic nevi ; Translations: [Melanocytic nevi of right upper limb, including shoulder]58-25-2440ItniylghHgmdi gastrointestinal disorders (7 sources)Irritable bowel syndrome; Translations: [Irritable bowel syndrome without diarrhea]56-44-7960BytvzcqJobin gastrointestinal disorders (1 source)HeartburnOnset: 60-39-5316KftysptrTwapp gastrointestinal disorders (3 sources)Abdominal bloating; Translations: [Abdominal distension (gaseous)] 41-62-5566RonyvjloLhavt nervous system disorders (13 sources)Chronic pain; Translations: [Other chronic pain]Onset: 07-05-2023 92-92-2355GdfflheQjfue screening for suspected conditions (not mental disorders or infectious disease) (4 sources)Encounter for screening for malignant neoplasm of cervix; Translations: [ENC SCREENING MALIG NEOPLASM CERV]Onset: 33-60-2401ZyqmocziIrtwb skin disorders (2 sources)Lentigo simplex; Translations: [Other melanin hyperpigmentation] 57-45-1178WwewjavlHlynn skin disorders (2 sources)Loss of hair; Translations: [Nonscarring hair loss, unspecified] 81-52-8096LrkubzybDdasedct codes; unclassified (15 sources)Reduced libido; Translations: [Decreased libido]Onset: 07-05-2023 02-17-8072IrmrksxkLqobjlii codes; unclassified (2 sources)History of atypical nevus; Translations: [Personal history of other specified conditions]68-16-0520NmohlstiLvxmjouaceg; intervertebral disc disorders; other back problems (2 sources)Chronic low back pain; Translations: [Chronic bilateral low back pain without sciatica]76-06-0044HvulrwkiVeudomf disorders (20 sources)Cyst of thyroid; Translations: [Nontoxic single thyroid nodule] Onset: 069408-02-9047MdrbfqcXgoqbdeqgyei (1 source)BOWEL CHANGESOnset: 28-61-2277Rphvdzeapude (1 source)BloatedOnset: 02-08-2024 Past or Other Problems Problem ClassificationProblemDateDocumented DateEpisodic/ChronicCancer of other female genital organs (17 sources)Atypical squamous cells of undetermined significance on cytologic smear of vagina (ASC-US); Translations: [Low grade squamous intraepithelial lesion on cytologic smear of vagina (LGSIL)]Onset: 619501-10-2807Uqmnmvro Disorders of teeth and jaw (13 sources)Arthritis of temporomandibular joint; Translations: [TMJ arthritis] Onset: 580514-34-6798GdnyzawdYdmnrzwom and duodenitis (13 sources)Bile-induced gastritis; Translations: [Other gastritis without bleeding]Onset: 291721-04-5940XktnhneeXfrpdkjs; including migraine (13 sources)Bilateral headache; Translations: [Bilateral headaches]Onset: 643743-05-1208JsripfutVanwuuphnrnc breast conditions (13 sources)Pain of breast; Translations: [Mastodynia]Onset: 07-05-2023 03-48-6201CrqhcpynGtlca female genital disorders (13 sources)Dysplasia of cervix; Translations: [Dysplasia of cervix uteri, unspecified]Onset: 309043-26-0517PszwluswFggfq gastrointestinal disorders (13 sources)Slow transit constipation; Translations: [Slow transit constipation] Onset: 515917-15-3381WjmwgobbZessn gastrointestinal disorders (13 sources)Dysphagia; Translations: [Dysphagia, pharyngoesophageal phase]Onset: 180360-59-9267RnnvduvvQckhl skin disorders (13 sources)Lesion of skin of breast; Translations: [Other specified disorders of the skin and subcutaneous tissue]Onset: 833349-21-5779Oyygtbbm Results Test NameValueInterpretationReference RangeFacilityBasophils Auto (Bld) [#/Vol] Ordered By: Melisa De Luna on 02-55-5107Shickpdbu (Bld) [#/Vol]0.0 10 3/uL 0.0-0.1FSumma Health Akron CampusBasophils/100 WBC Auto (Bld)Ordered By: Melisa Cuba on 45-74-1857Mkpiltzfv/100 WBC (Bld)0.3 %0.2-2.0[facility] TroyEosinophils/100 WBC Auto (Bld)Ordered By: Melisa Cuba on 15-89-5452Ifqtowrqyyt/100 WBC (Bld)0.9 %0.9-7.0[facility] TroyErythrocyte distribution width Auto (RBC) [Ratio]Ordered By: Melisa Cuba on 57-43-2163Fzynytqfvcz distribution width (RBC) [Ratio]11.6 %11.0-15.0[facility] TroyGlomerular filtration rate (GFR) estimation in non- AmericanOrdered By: Melisaconner De Luna on 07-27-2025 GFR/1.73 sq M.predicted among non-blacks MDRD (S/P/Bld) [Vol rate/Area] mL/min/{1.73_m2}>=60 mL/min/1.73m 2FSumma Health Akron CampusHCG ( test) IA.rapid Ql (U)Ordered By: Melisaconner De Luna on 84-76-8840LNZ ( test) Ql (U)NegativeNEGATIVEKettering Health Troy Hematocrit Auto (Bld) [Volume fraction]Ordered By: Melisaconner De Luna on 93-36-8110Wovjepomnx (Bld) [Volume fraction]36.9 %36.0-48.0[facility] TroyHemoglobin [Mass/volume] in BloodOrdered By: MelisaWestern Reserve Hospital on 40-38-5239Dlpbuulfig (Bld) [Mass/Vol]12.7 g/dL12.0-16.0[facility] TroyLaboratory - Chemistry and Chemistry - challengeOrdered By: [facility] on 84-95-6059Vuiqarz [Mass/Vol]8.0 mg/dLLow8.5-10.1FSumma Health Akron CampusChloride [Moles/Vol]105 mmol/P71-579TdjubdfjyKettering Health TroyCO2 [Moles/Vol]27.0 mmol/L21.0-32.0[facility] TroyCreatinine [Mass/Vol]0.97 mg/dL0.55-1.02[facility] GFR/1.73 sq M.predicted MDRD (S/P/Bld) [Vol rate/Area]mL/min/{1.73_m2}>=60 mL/min/1.73m 2FSumma Health Akron CampusGlucose [Mass/Vol]88 mg/kP56-018 [facility] TroyPotassium [Moles/Vol]3.5 mmol/L3.5-5.1FMercy Memorial Hospitalodium [Moles/Vol]141 mmol/L923-137DqvweggmxKettering Health TroyUrea nitrogen [Mass/Vol]16.0 mg/dL7.0-18.0[facility] TroyUrea nitrogen/Creatinine [Mass ratio]16.5 mg/mgKettering Health TroyBilirubin Ql (U)NegativeNEGATIVEKettering Health Troy Glucose (U) [Mass/Vol]NegativeNEGATIVEKettering Health TroyKetones Ql (U)NegativeNEGATIVEKettering Health TroypH (U)6.0 [pH]5.0-9.0 Kindred Healthcarepecific gravity (U) [Rel density]<=1.005 Abnormal1.005-1.025[facility] TroyUrobilinogen Qn (U)0.2 {Grayson'U}/dL0.2-1.0[facility] TroyLaboratory - Hematology and Cell countsOrdered By: Melisa De Luna on 74-76-2316Gzfertis granulocytes/100 WBC (Bld)0.2 %0.0-0.5FSumma Health Akron Campus Laboratory - Specimen informationOrdered By: Melisa De Luna on 07-27-2025 Appearance (U)CLEARCLEARFSumma Health Akron CampusColor (U)LT. YELLOW YELLOWKettering Health TroyLaboratory - UrinalysisOrdered By: Melisa De Luna on 45-63-8688Gycdfxmyk esterase Test strip Ql (U)Negative NEGATIVEKettering Health TroyNitrite Ql (U)NegativeNEGATIVEKettering Health TroyProtein Ql (U)NegativeNEG/TRACEKettering Health TroyLeukocytes [#/volume] corrected for nucleated erythrocytes in Blood by Automated counOrdered By: Melisa De Luna on 79-15-1968WFH corrected for nucl RBC Auto (Bld) [#/Vol]9.3 10 3/uL4.0-11.0[facility] Lymphocytes Auto (Bld) [#/Vol]Ordered By: Melisa De Luna on 07-27-2025 Lymphocytes (Bld) [#/Vol]3.7 10 3/uL1.2-3.8[facility] Lymphocytes/100 WBC Auto (Bld)Ordered By: Melisa De Luna on 07-27-2025 Lymphocytes/100 WBC (Bld)40.3 %20.5-60.0[facility] Auto (RBC) [Entitic mass]Ordered By: Melisa De Luna on 19-56-7972PID (RBC) [Entitic mass]32.1 pg26.7-34.0[facility] TroyMCHC Auto (RBC) [Mass/Vol]Ordered By: Melisa De Luna on 04-75-1890IGBV (RBC) [Mass/Vol]34.4 g/dL29.9-35.2FSumma Health Akron CampusMCV Auto (RBC) [Entitic vol] Ordered By: Melisa De Luna on 89-80-5247XQD (RBC) [Entitic vol]93.2 fL 81.0-99.0[facility] TroyMonocytes Auto (Bld) [#/Vol]Ordered By: Melisa Cuba on 52-37-5680Xicauzzjg (Bld) [#/Vol]0.8 10 3/uL0.3-0.8 [facility] TroyMonocytes/100 WBC Auto (Bld)Ordered By: Melisa Cuba on 07-77-6366Xknsnqwvr/100 WBC (Bld)9.0 %1.7-12.0[facility] TroyNeutrophils Auto (Bld) [#/Vol]Ordered By: Melisa Cuba on 63-21-8914Oflodcoaibd (Bld) [#/Vol]4.6 10 3/uL1.4-6.5FSumma Health Akron CampusNeutrophils/100 WBC Auto (Bld)Ordered By: MelisaWestern Reserve Hospital on 93-03-4750Himrnozzfqn/100 WBC (Bld)49.3 %43.0-75.0[facility] TroyNo Panel InformationOrdered By: MelisaWestern Reserve Hospital on 95-57-0352Tyyjlmcscrm # (Auto)0.1 10 3/uL0.0-0.7FSumma Health Akron CampusImmature Granulocyte # (Auto)0.02 10 3/uL0.00-0.03[facility] TroyUrine Microscopic ReviewNOKettering Health TroyUrine Occult BloodNegativeNEGATIVEKettering Health TroyPlatelet mean volume Auto (Bld) [Entitic vol]Ordered By: MelisaWestern Reserve Hospital on 07-27-2025 Platelet mean volume (Bld) [Entitic vol]9.9 fL9.5-13.5FSumma Health Akron CampusPlatelets Auto (Bld) [#/Vol]Ordered By: Melisa Cuba on 07-27-2025 Platelets (Bld) [#/Vol]295 10 3/aL177-913WrnnxpmrxKettering Health TroyRBC Auto (Bld) [#/Vol]Ordered By: Melisaconner De Luna on 24-39-9770CGO (Bld) [#/Vol] 3.96 10 6/uLLow4.20-5.40Kindred Healthcareerum or plasma anion gap determinationOrdered By: Melisaconner De Luna on 51-18-8353Kgmaw gap [Moles/Vol]12.5 mmol/LFSumma Health Akron CampusPAP IG, APT HPV RFX 16/18,45on 04-47-2499WCV APTIMANegativeNegativeNOPR HealthcareComment on above: This nucleic acid amplification test detects fourteen high- risk HPV types (16,18,31,33,35,39,45,51,52,56,58,59,66,68) without differentiation. Performed at: [facility] [address] [place] [id number] Junior Architect: Steven Altman MD, Phone: [phone] Performed at: - [facility] [id number] Junior Architect: Divya Jamison MD, Phone: [phone] Interpretation and review of laboratory resultsAbnormalNOJefferson Memorial Hospital IG (IMAGE GUIDED)NoteAbnormal.NOMS HealthcareComment on above:TESTS RESULT FLAG UNITS REF RANGE LAB Clinician Provided Cytology Information Source.............Vagina No. of containers..01 ThinPrep Vial DIAGNOSIS: [A] 01 EPITHELIAL CELL ABNORMALITY. ATYPICAL SQUAMOUS CELLS OF UNDETERMINED SIGNIFICANCE (ASC-US) (VAGINAL). Specimen adequacy: 01 Satisfactory for evaluation. Performed by: 01 Gina Carranza, Natural Resources Instructor (ASC) Electronically si... 01 Alyssa Saldaña MD, Pathologist . 01 Pathologist ICD10: 01 R87.620 Note: Note 02 The Pap smear is a screening test designed to aid in the detection of premalignant and malignant conditions of the uterine cervix. It is not a diagnostic procedure and should not be used as the sole means of detecting cervical cancer. Both false-positive and false-negative reports do occur. Test Methodology: Note 02 This liquid based ThinPrep(R) pap test was screened with the use of an image guided system. HPV Genotype Reflex Note 01 Criteria not met, HPV Genotype not performed. FLAG LEGEND: L-Low Normal,H-High Normal,LL-Alert Low,HH-Alert High <-Panic Low,>-Panic High,A-Abnormal,AA-Critical Abnormal Performed at: 01 [facility]to [facility] [place] [phone] Steven Altman MD, 02 WB [facility] [address] [phone] Divya Jamison MD, SPATULA-[facility] MAMMOGRAM SCREENING TOMOSYNTHESIS BILATERALon 20-29-0656ZG MAMMOGRAM SCREENING TOMOSYNTHESIS BILATERALThis is a summary report. The complete report [...] Screening Mammogram ELECTRONICALLY SIGNED BY: Indra Cerna M.D.NormalNot AvailablePAP IG, APT HPV RFX 16/18,45on 39-38-1446HAW APTIMANegativeNegativeWashington County Memorial HospitalComment on above:This nucleic acid amplification test detects fourteen high- risk HPV types (16,18,31,33,35,39,45,51,52,56,58,59,66,68) without differentiation. Performed at: - [facility] [id number] Junior Architect: Divya Jamison MD, Phone: [phone] Performed at: - [facility], [place] [id number] Junior Architect: Divya Jamison MD, Phone: [phone] Interpretation and review of laboratory resultsAbnormalNOPR HealthcarePAP IG (IMAGE GUIDED)NoteAbnormal.[facility] HealthcareComment on above:TESTS RESULT FLAG UNITS REF RANGE LAB Clinician Provided Cytology Information Source.............Vagina No. of containers..01 ThinPrep Vial DIAGNOSIS: [A] 01 EPITHELIAL CELL ABNORMALITY. LOW GRADE SQUAMOUS INTRAEPITHELIAL LESION (LSIL). Specimen adequacy: 01 Satisfactory for evaluation. Performed by: 02 Gina Carranza, Natural Resources Instructor (ASCP) Electronically si... 01 Nelly Clinton MD, [...] High,A-Abnormal,AA-Critical Abnormal Performed at: 01 WB [facility] [address] [phone] Divya Jamison MD, 02 [facility] Cyto [facility] [address] [place] [phone] Steven Altman MD, SPATULA-ALONE VAGINA CLINISYNCNOPR HealthcareCytology Cervical or vaginal smear or scraping studyon 03-43-6913TZQK HealthcareCBC with Diffon 14-22-5997Jjq. Basophil<0.03Normal 0.00-0.20[facility] HospitalComment on above:Performed By: #### TANA, CDP #### [address] [place] [address] Junior Architect: Cecily Valentin. Eosinophil<0.59Vkxorz1.00-0.44[facility] HospitalComment on above:Performed By: #### TANA, CDP #### [address] [place] [address] Junior Architect: Cecily Valentin.Imm.Granulocyte<0.12Tgznyy6.00-0.30[facility] HospitalComment on above:Performed By: #### TANA, CDP #### [address] [place] [address] Junior Architect: MDAbs. HomeroNeutrophil (Seg)6.60 k/uLNormal1.50-8.10MerOhioHealth Nelsonville Health Center HospitalComment on above:Performed By: #### CP, CDP #### [address] [place], [place] [address] Junior Architect: Kendrick Elena MDBasophils/100 WBC (Bld)0 %Normal0-2[facility] HospitalComment on above:Performed By: #### CP, CDP #### [address] [place], [facility]83 Junior Architect: Kendrick Elena MDEosinophils/100 WBC (Bld)0 %Low1-4[facility] HospitalComment on above:Performed By: #### CP, CDP #### [address] [place], [facility]83 Junior Architect: Kendrick Elena MDErythrocyte distribution width (RBC) [Ratio]12.3 % Oehuvu34.8-14.4[facility] HospitalComment on above:Performed By: #### CP, CDP #### [address] [place], [place] [address] Junior Architect: Kendrick Elena MDHematocrit (Bld) [Volume fraction]40.7 %Normal 36.3-47.1[facility] HospitalComment on above:Performed By: #### CP, CDP #### [address] [place], [facility]83 Junior Architect: Kendrick Elena MDHemoglobin (Bld) [Mass/Vol]13.9 g/dLNormal 11.9-15.1[facility] HospitalComment on above:Performed By: #### CP, CDP #### [address] [place], [facility]83 Junior Architect: Kendrick Elena MDImmature granulocytes/100 WBC (Bld)0 %Zhgdxa0Ghsxm Moriah HospitalComment on above:Performed By: #### CP, CDP #### [address] [place], [facility]83 Junior Architect: Kendrick Elena MDLymphocytes (Bld) [#/Vol]1.29 10*3/uLNormal 1.10-3.70[facility] HospitalComment on above:Performed By: #### CP, CDP #### [address] [place] [address] Junior Architect: Jannet Valentinmphocytes/100 WBC (Bld)15 %Els06-38SdrfnJ.W. Ruby Memorial HospitalComment on above:Performed By: #### CP, CDP #### [address] [place] [address] Junior Architect: PASQUALE ValentinCH (RBC) [Entitic mass]32.0 utBwyfap46.2-33.5 [facility] HospitalComment on above:Performed By: #### CP, CDP #### [address] [place] [address] Junior Architect: ALIVIA ValentinC (RBC) [Mass/Vol]34.2 g/gKPslusb45.4-34.8[facility] HospitalComment on above:Performed By: #### CP, CDP #### [address] [place] [address] Junior Architect: PASQUALE ValentinCV (RBC) [Entitic vol]93.6 yPXrfamo60.6-102.9 [facility] HospitalComment on above:Performed By: #### CP, CDP #### [address] [place] [address] Junior Architect: PASQUALE Valentinonocytes (Bld) [#/Vol]0.71 10*3/uLNormal0.10-1.20 [facility] HospitalComment on above:Performed By: #### CP, CDP #### [address] [place] [address] Junior Architect: PASQUALE Valentinonocytes/100 WBC (Bld)8 %Normal3-12J.[facility]. [facility] HospitalComment on above:Performed By: #### CP, CDP #### [facility] [address] [place] [address] [place] [address] Junior Architect: Jim Valentinutrophil (Seg)77 %Kroy45-31[facility] Comment on above:Performed By: #### CP, CDP #### [facility] [address] [place] [address] [place] [address] Junior Architect: JR Valentin Automated0.0 per 100 WBCNormal0.0J.[facility]. [facility] Memorial HospitalComment on above:Performed By: #### CP, CDP #### [address] [place] [address] Junior Architect: Lux Valentin mean volume (Bld) [Entitic vol]9.9 fL Normal8.1-13.5J.[facility]. [facility] Memorial HospitalComment on above:Performed By: #### CP, CDP #### [address] [place] [address] Junior Architect: Ga Valentintejuvenal (Bld) [#/Vol]232 10*3/lMYxyobj810-294 [facility] HospitalComment on above:Performed By: #### CP, CDP #### [facility] [address] [place] [address] [place] [address] Junior Architect: Kendrick Elena MDRBC (Bld) [#/Vol]4.35 10*6/uLNormal3.95-5.11[facility] HospitalComment on above:Performed By: #### CP, CDP #### [address] [place] [address] Junior Architect: LUIS ValentinBC (Bld) [#/Vol]8.7 10*3/uLNormal3.5-11.3[facility] HospitalComment on above:Performed By: #### CP, CDP #### [address] [place] [address] Junior Architect: Kendrick Elena MDComp Metabolic Profon 35-07-3682Pmemxqz [Mass/Vol] 4.3 g/dLNormal3.5-5.2[facility] HospitalComment on above:Performed By: #### CP, CDP #### [address] [place] [address] Junior Architect: Kendrick Elena MDAlbumin/Glob Ratio1.5Fjpaau9.0-2.5[facility] HospitalComment on above:Performed By: #### CP, CDP #### [address] [place] [address] Junior Architect: Zane Valentin Phos54 U/RMniqum13-762Ovumb Moriah HospitalComment on above:Performed By: #### CP, CDP #### [address] [place] [address] Junior Architect: Kendrick Elena MDALT [Catalytic activity/Vol]14 U/LNormal5-33[facility] HospitalComment on above:Performed By: #### CP, CDP #### [address] [place] [address] Junior Architect: Kendrick Elena MDAnion gap [Moles/Vol]9 mmol/LNormal9-17[facility] HospitalComment on above:Performed By: #### CP, CDP #### [address] [place], [place] [id number] Junior Architect: Kendrick Elena MDAST [Catalytic activity/Vol]16 U/LNormal<32[facility] HospitalComment on above:Performed By: #### CP, CDP #### [address] [place] [address] Junior Architect: Kendrick Elena MDBilirubin [Mass/Vol]0.9 mg/dLNormal0.3-1.2MercOhio Valley Surgical Hospital HospitalComment on above:Performed By: #### CP, CDP #### [address] [place] [address] Junior Architect: Kendrick Elena MDBUN/CRE Uiwrx27Ihpqmu2-96Fgdir [facility] Comment on above:Performed By: #### CP, CDP #### [address] [place] [address] Junior Architect: APRIL Valentinalcium [Mass/Vol]9.0 mg/dLNormal8.6-10.4J.W. Ruby Memorial HospitalComment on above:Performed By: #### CP, CDP #### [address] [place] [address] Junior Architect: Kendrick Elena MDChloride [Moles/Vol]102 mmol/TCnulwe09-372GpyjsJ.W. Ruby Memorial HospitalComment on above:Performed By: #### CP, CDP #### [address] [place] [address] Junior Architect: Kendrick lEena MDCO2 [Moles/Vol]29 mmol/CVgqkkd66-96Jwytb [facility] HospitalComment on above:Performed By: #### CP, CDP #### [address] [place] [address] Junior Architect: APRIL Valetninreatinine [Mass/Vol]0.9 mg/dLNormal0.5-0.9J.[facility]. Ruby Memorial HospitalComment on above:Performed By: #### CP, CDP #### [address] [place], [place] [id number] Junior Architect: Kendrick Sturtz, MDGFR/1.73 sq M.predicted among non-blacks MDRD (S/P/Bld) [Vol rate/Area]82 mL/min/{1.73_m2}Normal>60[facility] Comment on above:Result Comment: These results are not intended for [...] or following therapy that affects renal tubular secretion.Performed By: #### CP, CDP #### [address] [place] [id number] Junior Architect: Kendrick Elena MDGlucose [Mass/Vol]100 mg/hDIndi72-69KqasxThe MetroHealth SystemComment on above:Performed By: #### TANA, CDP #### [address] [place], [facility]83 Junior Architect: CASI Valentinotassium [Moles/Vol]4.2 mmol/LNormal3.7-5.3MMetroHealth [facility] HospitalComment on above:Performed By: #### CP, CDP #### [address] [place], [facility]83 Junior Architect: Kendrick Elena MDProtein [Mass/Vol]7.0 g/dLNormal6.4-8.3MMetroHealth [facility] HospitalComment on above:Performed By: #### CP, CDP #### [address] [place], [facility]83 Junior Architect: ELLEN Valentinodium [Moles/Vol]140 mmol/BJowiso412-143AglibJ.W. Ruby Memorial HospitalComment on above:Performed By: #### CP, CDP #### [address] [place], [facility]83 Junior Architect: Kendrick Elena MDUrea nitrogen [Mass/Vol]10 mg/dLNormal6-20MerNatchaug HospitalComment on above:Performed By: #### CP, CDP #### [facility] [address] [place], [place] [address] Junior Architect: Kendrick Elena, MDPap IG, rfx Aptima HPV, rfx 16/18,45on 01-16-2023. .NormalThe Wilson Street HospitalComment on above:Result Comment: Performed at: WB Performed By: #### [id number] #### [facility] [address] [place] [address] Dr. Mat StokesDIAGNOSIS:CommentAbOhioHealth on above: Result Comment: EPITHELIAL CELL ABNORMALITY. LOW GRADE SQUAMOUS INTRAEPITHELIAL LESION (LSIL). Performed at: WBPerformed By: #### [id number] #### [facility] [address] [place] [address] Dr. Rivero ChangElectronically signed by:[facility] Comment on above:Result Comment: Nelly Clinton MD, Pathologist Performed at: WBPerformed By: #### [id number] #### [facility] [address] [place] [address] Dr. Mat Castillo AptimaNegativeNormalNegativeBethesda North Hospital on above:Result Comment: This nucleic acid amplification test detects fourteen high-risk HPV types (16,18,31,33,35,39,45,51,52,56,58,59,66,68) without differentiation. Performed at: =GPerformed By: #### [id number] #### [facility] [address] [place] [address] Dr. Mat Castillo Genotype ReflexCommentWayne Hospital on above:Result Comment: Criteria not met, HPV Genotype not performed. Performed at: WBPerformed By: #### [id number] #### [facility] [address] [place] [address] Dr. Mat StokesMethodology:CommentWayne Hospital on above: Result Comment: This liquid based ThinPrep(R) pap test was screened with the use of an image guided system. Performed at: WBPerformed By: #### [id number] #### [facility] [address] [place] [address] Dr. Mat StokesNote:CommentWayne Hospital on above:Result Comment: The Pap smear is a screening test designed to aid in the detection of premalignant and malignant conditions of the uterine cervix. It is not a diagnostic procedure and should not be used as the sole means of detecting cervical cancer. Both false-positive and false-negative reports do occur. . Performed at: WBPerformed By: #### [id number] #### [facility] [address] [place] [address] Dr. Mat StokesPathologist Provided HVT05BnlapiyJirqbjAeaLutheran Hospital Comment on above:Result Comment: R87.612 Performed at: Performed By: #### [id number] #### [facility] [address] [place] [address] Dr. Mat StokesPerformed by:CommentNoProMedica Toledo Hospitalment on above: Result Comment: Jelani Jarquin, Natural Resources Instructor (ASCP) Performed at: WBPerformed By: #### [id number] #### [facility] [address] [place] [address] Dr. Mat StokesSpecimesammy adequacy:CommentWayne Hospital on above:Result Comment: Satisfactory for evaluation. No endocervical component is identified. Performed at: WBPerformed By: #### [id number] #### [facility] [address] [place] [address] Dr. Mat StokesSCREENING MAMMOGRAM W/MUSA, BILATERAL*on 14-28-7535VJBPBVWWL MAMMOGRAM W/MUSA, BILATERAL*COMPARISON: Dating back to November 09, 2021 and [...] VERY IMPORTANT TO YOUR HEALTH. THE CURRENT [employer] OF [employer] AND [employer] COMPREHENSIVE CANC[employer] NETWORK GUIDELINES RECOMMENDS ANNUAL MAMMOGRAPHY BEGINNING AT AGE 40 THIS FACILITY USES A REMINDER SYSTEM TO ENSURE ALL PATIENTS RECEIVE REMINDER NOTIFICATIONS AT THE APPROPRIATE TIME BASED ON THE RECOMMENDATIONS OF THIS EXAM. Report reported and signed by Kuldip Mccormick on 11/21/2022 0859[facility] Allen HospitalUS Thyroidon 20-31-7055QK ThyroidFINDINGS: Right Lobe: 5.0 x 1.3 x 1.4 [...] and signed by Kuldip Mccormick on 11/03/2022 1038[facility] HospitalCBC with Auto Differentialon 70-94-2291Cleamdqm Eos #0.04 [facility] HOSPITALAbsolute Immature GranulocyteB[facility] Absolute Lymph #2.38[facility] HOSPITALAbsolute Stutsman #0.56[facility] NORTH HOSPITALBasophils AbsoluteBON SECOURS TRIHEALTH BETHESDA NORTH HOSPITALBasophils/100 WBC (Bld)0 %0 - 2 %[facility] HOSPITALEosinophils/100 WBC (Bld)1 %1 - 4 %[facility] HOSPITALHematocrit (Bld) [Volume fraction]40.2 %36.3 - 47.1 %[facility] HOSPITALHemoglobin (Bld) [Mass/Vol]13.8 g/dL11.9 - 15.1 g/dLBON SECADENA HEALTH SYSTEMImmature granulocytes/100 WBC (Bld)0 %0[facility] Interpretation and review of laboratory resultsAbnormalB[facility] Lymphocytes/100 WBC (Bld)34 %24 - 43 %[facility] HOSPITALH (RBC) [Entitic mass]32.0 pg25.2 - 33.5 pgBON SECWHITE HOSPITALHC (RBC) [Mass/Vol]34.3 g/dL28.4 - 34.8 g/dLBON SECWHITE HOSPITALV (RBC) [Entitic vol]93.3 fL82.6 - 102.9 fLBON DUNLAP MEMORIAL HOSPITALMonocytes/100 WBC (Bld)8 %3 - 12 %[facility]ALTHNRBC Automated0.00.0 per 100 WBCBON DUNLAP MEMORIAL HOSPITALPlatelet distribution width (Bld) [Ratio]11.6 %Low11.8 - 14.4 %[facility] Platelet mean volume (Bld) [Entitic vol]9.6 fL8.1 - 13.5 fLBON SECSTERLING SURGICAL HOSPITAL HEALTHPlatelets (Bld) [#/Vol]291 10*3/uLBON SECADENA HEALTH SYSTEMRBC (Bld) [#/Vol]4.31 10*6/uL3.95 - 5.11 m/uLBON DUNLAP MEMORIAL HOSPITALSegmented neutrophils/100 WBC (Bld)57 %36 - 65 %[facility] HEALTHSegs Absolute3.93 [facility]ALTH SYSTEMWBC (Bld) [#/Vol]6.9 10*3/uLBON [facility]UNLAP MEMORIAL HOSPITALB[facility] HOSPITALComprehensive Metabolic Panelon 89-32-7792Mrejxsl [Mass/Vol] 4.6 g/dL3.5 - 5.2 g/dLBON DUNLAP MEMORIAL HOSPITALAlbumin/Globulin [Mass ratio]1.9 {ratio}1 - 2.5BON DUNLAP MEMORIAL HOSPITALALP (Bld) [Catalytic activity/Vol]50 U/L35 - 104 U/LBON [facility]STERL[facility] SURGICAL HOSPITAL HEALTHALT [Catalytic activity/Vol]11 U/L5 - 33 U/LBON [facility]UN[facility] MEMORIAL HOSPITALAnion gap [Moles/Vol]11 mmol/L9 - 17 mmol/LBON [facility] HEALTHAST [Catalytic activity/Vol]16 U/LNINF - 32 U/LB[facility] Bilirubin [Mass/Vol]0.9 mg/dL0.3 - 1.2 mg/dLBON [facility] HEALTHCalcium [Mass/Vol]9.1 mg/dL8.6 - 10.4 mg/dLBON [facility] HEALTHChloride [Moles/Vol] 103 mmol/L98 - 107 mmol/LBON [facility] HEALTHCO2 [Moles/Vol]24 mmol/L20 - 31 mmol/LBON DUNLAP MEMORIAL HOSPITALCreatinine [Mass/Vol]0.78 mg/dL0.5 - 0.9 mg/dLB[facility] ClinicalBoxGFR/1.73 sq M.predicted MDRD (S/P/Bld) [Vol rate/Area]- PINFBON DUNLAP MEMORIAL HOSPITALComment on above: Effective Aug 21, 2022 These [...] therapy that affects renal tubular secretion. Glucose [Mass/Vol]94 mg/dL70 - 99 mg/dLBON E[facility] HEALTHPotassium [Moles/Vol]3.9 mmol/L3.7 - 5.3 mmol/LBON [facility] HEALTHProtein [Mass/Vol] 7.0 g/dL6.4 - 8.3 g/dLBON [facility] HEALTHSodium [Moles/Vol]138 mmol/L135 - 144 mmol/LBON [facility] HEALTHUrea nitrogen (BldV) [Mass/Vol]13 mg/dL6 - 20 mg/dLBON DUNLAP MEMORIAL HOSPITALUrea nitrogen/Creatinine (Bld) [Mass ratio]179 - 20 [facility] HOSPITALBON [facility]AD[facility] HEALTH SYSTEMPap IG,rfx Aptima HPV all pthon 07-08-2022..NormalThe [address] HospitalComment on above:Performed By: #### [id number] #### [facility] [address] [place] [address] Dr. Mat StokesDIAGNOSIS:CommentAbOhioHealth on above: Result Comment: EPITHELIAL CELL ABNORMALITY. ATYPICAL SQUAMOUS CELLS OF UNDETERMINED SIGNIFICANCE (ASC-US).Performed By: #### [id number] #### [facility] [address] [place] [address] Dr. Rivero ChangElectronically signed by:CommentTrinity Health System Comment on above:Result Comment: Nelly Clinton MD, PathologistPerformed By: #### [id number] #### [facility] [address] [place] [address] Dr. Mat StokesHPV AptimaNegativeNormalNegativeAvita Health System Ontario HospitalCommarlette regional hospital on above:Result Comment: This nucleic acid amplification test detects fourteen high-risk HPV types (16,18,31,33,35,39,45,51,52,56,58,59,66,68) without differentiation.Performed By: #### [id number] #### [facility] [address] [place] [address] Dr. Mat StokesMethodology:CommentWayne Hospital on above: Result Comment: This liquid based ThinPrep(R) pap test was screened with the use of an image guided system.Performed By: #### [id number] #### [facility] [address] [place] [address] Dr. Mat StokesNote:CommentWayne Hospital on above:Result Comment: The Pap smear is a screening test designed to aid in the detection of premalignant and malignant conditions of the uterine cervix. It is not a diagnostic procedure and should not be used as the sole means of detecting cervical cancer. Both false-positive and false-negative reports do occur. .Performed By: #### [id number] #### [facility] [address] [place] [address] Dr. Mat StokesPathologist Provided DXM62XtjnazfTesommUvbGlenbeigh Hospital Comment on above:Result Comment: R87.610Performed By: #### [id number] #### [facility] [address] [place] [address] Dr. Mat StokesPerformed by:CommentWayne Hospital on above: Result Comment: Eliz Wilson, Natural Resources Instructor (ASCP)Performed By: #### [id number] #### [facility] [address] [place] [address] Dr. Mat StokesReflex Criteria:CommentWayne Hospital on above:Result Comment: See below for HPV testing results. .Performed By: #### [id number] #### [facility] [address] [place] [address] Dr. Mat StokesSpecimen adequacy:[facility] on above:Result Comment: Satisfactory for evaluation. No endocervical component is identified.Performed By: #### [id number] #### [facility] [address] [place] [address] Dr. Mat Stokes Vital Signs Date TimeVital SignValuePerforming KjlocdawmAqvdtwhr34-13-9846 15:Body chysqg885.56 cmTamera Mccarthy MD Work Phone: [facility]10-30-2025 15:14-040 Body mass index (BMI) [Ratio]26.6 kg/m2Tamera Mccarthy MD Work Phone: [facility]10-30-2025 15:14 Body xqexhj43.3 kgTamera Mccarthy MD Work Phone: [facility]10-30-2025 15:14-0400 Diastolic blood cveoszfj12 mm[Hg]Tamera Mccarthy MD Work Phone: [phone]10-30-2025 15:14-0400 Heart rate80 /minTamera Mccarthy MD Work Phone: [phone]10-30-2025 15:14-0400 Systolic blood deaiafjm067 mm[Hg]Tamera Mccarthy MD Work Phone: [phone]08-19-2025 16:36-0400 Body mass index (BMI) [Ratio]27.64 kg/f9FcadumKenney Lorenzana CRYSTALIZER Work Phone: [facility] HospitalZmvhwkpraa51-86-7977 16:36-0400Body temperature 97.7 [degF]Kenney Lorenzana CRYSTALIZER Work Phone: [facility] HospitalJltwgtrshw09-67-1626 16:36-0400Body .03 kgKenney Lorenzana CRYSTALIZER Work Phone: [facility] HospitalQsldhglitd71-86-5123 16:36-0400Diastolic blood wcqnofwe22 mm[Hg]Kenney Lorenzana CRYSTALIZER Work Phone: [facility] HospitalAzknorbtxy30-02-1730 16:36-0400Heart rate70 /min Kenney Lorenzana CRYSTALIZER Work Phone: [place] [phone] 16:36-4604XuG3% (BldA) [Mass fraction]96 %Kenney Lorenzana CRYSTALIZER Work Phone: [place] [phone] 16:36-0400Systolic blood mwuqfiyg148 mm[Hg]Kenney Lorenzana CRYSTALIZER Work Phone: [facility] HospitalJctovwiyxv54-96-1924 15:20-0400Body mass index (BMI) [Ratio]26.78 kg/m5Ivlvu Julianne DO Work Phone: [facility] HospitalEnscqupxyb42-24-0076 15:20-0400Body wrpgyv73.76 kgCorey Julianne DO Work Phone: [facility] HospitalWwohmkwocu79-73-0103 15:20-0400Diastolic blood fzjcjcfa71 mm[Hg]Gabriel Julianne DO Work Phone: [facility] HospitalEcfwbdwass01-52-9662 15:20-0400Systolic blood mm[Hg]Gabriel Julianne DO Work Phone: [facility] HospitalGvgmgqijyg05-55-0948 11:48-0400Body mass index (BMI) [Ratio]26.09 kg/w2Gnkyh Julianne DO Work Phone: [facility] HospitalOwcbiqmmvf65-74-7759 11:48-0400Body vdanvh33.95 kgCorey Julianne DO Work Phone: [facility] HospitalYryfrocfyf83-28-1228 11:48-0400Diastolic blood jlozfnef29 mm[Hg]Gabriel Julianne DO Work Phone: [facility] HospitalDdsegaevfl22-09-7181 11:48-0400Systolic blood bzumpfrk823 mm[Hg]Gabriel Julianne DO Work Phone: [facility] HospitalEggvpcfeoj43-78-6839 13:37-0400Body oyhgkw724.8 cmAdaayo Berkowitz PROGRESS DEVELOPER-MARKETING REGIONAL CONSULTANT Work Phone: [facility]03-22-2024 13:37-0400Body mass index (BMI) [Ratio]25.86 kg/i4Eqjikbmayo Berkowitz PROGRESS DEVELOPER-MARKETING REGIONAL CONSULTANT Work Phone: [facility]03-22-2024 13:37-0400Body ceugkk91.4 kgAdaayo Berkowitz PROGRESS DEVELOPER-MARKETING REGIONAL CONSULTANT Work Phone: [facility]03-22-2024 13:37-0400Diastolic blood qwirvtvw21 mm[Hg]Suni Berkowitz PROGRESS DEVELOPER-MARKETING REGIONAL CONSULTANT Work Phone: [facility]03-22-2024 13:37-0400Systolic blood pthvlhtu112 mm[Hg]Suni Phoenix PROGRESS DEVELOPER-MARKETING REGIONAL CONSULTANT Work Phone: [facility] Encounters Encounter DateEncounter TypeCare ProviderFacilityStart: 09-17-2025 End: 22-93-9041xumdcugjnmDtqu Bower MD Work Phone: [phone]-Bxicnntkt Health GastroStart: 09-17-2025 End: 61-40-6260Gjuzyad encounter procedureCamemeka Delgadillo MD-[facility]astro Work Phone: Start: 07-71-3316Obs-patient / Non-visitMelisa De Luna PA-C-[facility] [employer] Work Phone: Start: 07-07-2025 End: 17-58-3427Tkzvsd outpatient visit 25 minutesKenney Lorenzana CRYSTALIZER Work Phone: [facility] MedicineComment on above: Gastroesophageal reflux disease with esophagitis without hemorrhage (Primary Dx); Irritable bowel syndrome, unspecified type; Chronic bilateral low back pain without sciatica; Low libido; Hair lossStart: 07-07-2025 End: 38-85-3776srzytikslpOWRFNI MAJORSNot AvailableStart: 07-07-2025 End: 17-55-5851Afccqa flowsAdventHealth New Smyrna Beach CRYSTALIZER Work Phone: noMS [facility] MedicineStart: 07-07-2025 End: 78-42-9802Odyvam [facility] CRYSTALIZER Work Phone: noMS [facility] MedicineStart: 05-29-2025 End: 14-44-4543Ynuxhs flowsAdventHealth [facility]wood PA Work Phone: noMS SWS DERMStart: 05-29-2025 End: 55-82-5202Frpoma flowsAdventHealth Carrollwood PA Work Phone: noms SWS DERMStart: 05-29-2025 End: 54-05-2655Snwnvk outpatient visit 15 minutesRyelen [facility] Work Phone: noms SWS DERMComment on above:Multiple benign melanocytic nevi of both upper extremities, both lower extremities, and trunk (Primary Dx); Lentigo simplex; Tinea versicolor; History of atypical nevusStart: 05-29-2025 End: 94-97-8441uxbididwrqSRDQW NORTHEIMNot AvailableStart: 02-17-2025 End: 14-70-2380Lvkmnd outpatient visit 15 minutesCorey Julianne DO Work Phone: noms [facility] OBComment on above:LGSIL Pap smear of vagina; H/O: hysterectomyStart: 02-17-2025 End: 57-84-7973moyyogbzupTYEQY FAZIONot AvailableStart: 02-17-2025 End: 72-33-9543Fndxqz flowsheetCorey Julianne DO Work Phone: [facility] BCP OBStart: 02-17-2025 End: 63-99-0597Progac flowsheetCorey Julianne DO Work Phone: noms BCP OBStart: 02-17-2025 End: 59-06-5530Ahiiqmeau Result EncounterGeneric External Data ProviderNOMS External Department UnsolicitedStart: 01-09-2025 End: 92-70-6902Nzzdinknm encounterSuni CROUCH Work Phone: [facility] SurgeryStart: 12-23-2024 End: 90-45-5587AbbuhaPboa F Bower MD Work Phone: noms FNR FMComment on above:Gastroesophageal reflux disease with esophagitis without hemorrhageStart: 12-12-2024 End: 40-78-1237dyjihdahyxHIZS F BOWERNot AvailableStart: 11-20-2024 End: 77-09-8831Fqtvqqqmf encounterTamera Mccarthy MD Work Phone: noms FNR FMStart: 07-22-2024 End: 74-86-5275Wjnuhbowl Result EncounterCorey Julianne DO Work Phone: noms External Department UnsolicitedStart: 07-22-2024 End: 35-21-1853Xmrdojnro Result EncounterCorey Julianne DO Work Phone: noms External Department UnsolicitedStart: 07-22-2024 End: 52-12-5773Weettia encounter procedureCorey Julianne DO Work Phone: [facility] OBComment on above:LGSIL Pap smear of vagina; H/O: hysterectomyStart: 07-22-2024 End: 17-45-2851lxvisppjfdHNBFZ FAZIONot AvailableStart: 05-01-2024 End: 62-30-6006gpgcmuniteJNMOWLB [facility] [place] HospitalStart: 02-08-2024 End: 60-80-5673fmygusurwgKHCLNNM A CARROLLRegency Hospital Cleveland Eastrishabh [facility] Start: 02-08-2024 End: 29-06-1600Ytfeni outpatient new 30 minutesSuni Berkowitz PROGRESS DEVELOPER-MARKETING REGIONAL CONSULTANT Work Phone: [facility] Physicians General SurgeryComment on above: Irritable bowel syndrome, unspecified type (Primary Dx); Abdominal bloating; Gastroesophageal reflux disease, unspecified whether esophagitis presentStart: 01-08-2023 End: 45-00-1159nmnhuxwzwfOR TAMERA MCCARTHYFacility:J9Lgtba: 08-29-2022 End: 02-13-1655Ugjtremsbk hospital visit by physicianTamera Mccarthy MD Work Phone: mthz LaboratoryStart: 07-03-2022 End: 29-91-7496mfcvczpdzcVG TAMERA MCCARTHYFacility:H1 Procedures DateProcedureProcedure DetailPerforming ClinicianStart: 24-38-2740GVA IG, APT HPV RFX 16/18,45Corey Julianne DO Work Phone: Start: 51-19-2913JxjotkgndgbGapv Bower MD Work Phone: Start: 01-70-7324LHO IG, APT HPV RFX 16/18,45Corey Julianne DO Work Phone: Start: 53-44-2062Yvklwmrqibp observation [Identifier] in Cervix by Cyto Garret Berkowitz PROGRESS DEVELOPER-MARKETING REGIONAL CONSULTANT Work Phone: Start: 93-87-3440Rqvh cerv/vag auto thin layer prep mnl screenCorey Julianne DO Work Phone: Start: 60-54-1112LhpvpbwwqwwGwqup Julianne DO Work Phone: Start: 07-05-2023H/O: hysterectomyH/O: hysterectomy Gabriel Julianne DO Work Phone: Start: 08-91-8943Vhqhhypjiscrh metabolic panelKicornelio Marcelina Violetta PROGRESS DEVELOPER - ROAD MARKER Work Phone: H/O: hysterectomyH/O: hysterectomyCorey Julianne DO Work Phone: H/O: hysterectomyH/O: hysterectomyCorey Julianne DO Work Phone: Plan of Treatment DateCare ActivityDetailAuthorStart: 58-37-2110XTwZ,Tdap and Td Vaccines (2 - Td or Tdap)DTaP,Tdap and Td Vaccines (2 - Td or Tdap)[facility] SystemStart: 49-57-8531Pizmtlcao for malignant neoplasm of cervixPap SmearProCleveland Clinic Foundationca [facility] SystemStart: 05-28-2026 End: 16-72-4994Qilexbd encounter procedureNOMS SWS DERMStart: 12-12-2025 Screening for malignant neoplasm of breastMammogramNOMS HealthcareStart: 09-29-2025 End: 52-05-5558Aobwbkw encounter procedureNOMS BCP OBStart: 20-79-1528Oqyfoqciq vaccinationNOMS HealthcareStart: 07-07-2025 End: 34-26-6971Jfrcqkr encounter /19/2025 4:30 PM EDT Office Visit [facility]AIT[facility] [address] [place] [phone] Kenney Lorenzana NP [address] [place] [address] ArrivedNOSutter Roseville Medical CenterComment on above:Arrived Start: 07-07-2025 End: 35-73-2584KehvmxhsoPeyejxaae Lab Routine Low libido Hair loss Expected: 07/07/2025 (Approximate), Expires: 07/07/2026[facility] HealthcareComment on above: Expected: 07/07/2025 (Approximate), Expires: 07/07/2026Start: 07-07-2025 End: 37-12-2734Oiodagui [Mass/volume] in Serum or PlasmaFerritin Lab Routine Hair loss Expected: 07/07/2025 (Approximate), Expires: 07/07/2026[facility] Healthcare Comment on above:Expected: 07/07/2025 (Approximate), Expires: 07/07/2026Start: 07-07-2025 End: 80-35-9246BTROWF Lab Routine Low libido Hair loss Expected: 07/07/2025 (Approximate), Expires: 07/07/2026PR HealthcareComment on above:Expected: 07/07/2025 (Approximate), Expires: 07/07/2026Start: 07-07-2025 End: 81-74-5207Pcptkudwpkt hormoneLuteinizing hormone Lab Routine Low libido Hair loss Expected: 07/07/2025 (Approximate), Expires: 07/07/2026[facility] Healthcare Comment on above:Expected: 07/07/2025 (Approximate), Expires: 07/07/2026Start: 07-07-2025 End: 36-08-4728HpmvgaekyftbSlxzdxylguzs Lab Routine Low libido Hair loss Expected: 07/07/2025 (Approximate), Expires: 07/07/2026[facility] HealthcareComment on above:Expected: 07/07/2025 (Approximate), Expires: 07/07/2026Start: 07-07-2025 End: 59-56-0896NTE W/REFLEX TO FT4TSH W/REFLEX TO FT4 Lab Routine Hair loss Expected: 07/07/2025 (Approximate), Expires: 07/07/2026[facility] Healthcare Work Phone: Comment on above:Expected: 07/07/2025 (Approximate), Expires: 07/07/2026Start: 05-29-2025 End: 53-29-7802Gpfaajd encounter jsvkgezzv07/11/2025 10:00 AM EDT Office Visit [facility] [address] [place] [address] Asiya Rdz PA [address] [place] [address] ArrivedNOMS SWS DERMComment on above:ArrivedStart: 03-27-2025 End: 06-45-1635Lcbwqdh encounter procedureNOMS SWS DERMStart: 02-17-2025 End: 71-64-7674Psvtaez encounter procedureNOMS BCP OBComment on above:Arrived Start: 05-81-5376Jmkep BMI ScreeningAdult BMI ScreeningSumma Health [facility] System Start: 45-29-4689Kvxzwps ScreeningTobacco ScreeningProCleveland Clinic [facility] SystemStart: 11-28-2024 End: 94-49-2608Tafvlnr encounter kadafdcir91/10/2025 9:40 AM EST Office Visit [facility] [address] [place] [address] Tamera Mccarthy MD [address] [place], [place] [id number] [facility] FMStart: 45-81-6332Qbgmcscxo for malignant neoplasm of breastMammogramPR[facility] HealthcareStart: 07-22-2024 End: 22-57-7123BpniygbmpdEddnaprljx Procedures Routine LGSIL Pap smear of vagina Expected: 07/22/2024 (Approximate), Expires: 07/22/2025[facility] Work Phone: comment on above:Expected: 07/22/2024 (Approximate), Expires: 07/22/2025Start: 83-15-2579IYCDC-19 Vaccine ()COVID- 19 Vaccine ( season)[facility] SystemStart: 08-76-9496Aspxmrjqa vaccinationNOPR HealthcareStart: 41-31-3007BBFOA-19 Vaccine ( season)COVID-19 Vaccine ()[facility] SystemStart: 80-11-0995Mgjfqemmj vaccinationFlu vaccine (#1)[facility]art: 46-69-5187Cxwgtfsyg for malignant neoplasm of cervixBALLAD HEALTH Start: 14-76-4934Ccxmxixha for malignant neoplasm of cervixPap smearMary Washington Healthcareart: 30-96-5101GXuK/Tdap/Td vaccine (1 - Tdap)DTaP/Tdap/Td vaccine (1 - Tdap)[facility]art: 00-96-7374Kjzsl BMI Follow Up Plan Adult BMI Follow Up PlanFormerly [facility]tart: 10-76-7270Goiinxjpj C screeningHepatitis C screenMary Washington Healthcareart: 21-15-4793LKX screeningHIV screenVCU Medical Center: 56-90-7359Fzmpsccvdx Screen Depression ScreenMary Washington Healthcareart: 52-53-2510Sovlvesocy Screening Depression ScreeningFormerly [facility] Hospitaltart: 82-79-5203Ovkdxtnsp vaccine (1 of 2 - 2-dose childhood series)Varicella vaccine (1 of 2 - 2-dose childhood series)[facility]art: 98-70-1461FQWPY-19 Vaccine (#1)COVID-19 Vaccine (#1)[facility] HPV DNATHIN PREP TIS PAP AND HR HPV DNA Pathology and Cytology Routine LGSIL Pap smear of vagina Ordered: 07/22/2024[facility] HealthcareComment on above:Ordered: 07/22/2024THIN PREP TIS PAP AND HR HPV DNATHIN PREP TIS PAP AND HR HPV DNA Pathology and Cytology Routine LGSIL Pap smear of vagina H/O: hysterectomy Ordered: 02/17/2025[facility] Work Phone: comment on above:Ordered: 02/17/2025 Immunizations Immunization DateImmunizationNotesCare MgipervhTqepnjtb99-80-2579ovrxjfwrs virus vaccine, unspecified formulationGabriel Whitaker DO Work Phone: [facility] HospitalVrljjpzjqs38-14-7009ympzscnbq virus vaccine, unspecified formulationTamera Mccarthy MD Work Phone: [facility]ALTHGIZAEL64-37-0061auwwhgaeq virus vaccine, unspecified formulationTaemra Mccarthy MD Work Phone: [facility] Work Phone: [phone] virus vaccine, unspecified formulationTamera Mccarthy MD Work Phone: [facility] Payers DatePayer CategoryPayerPolicy [id number] Care Other (unspecified)[facility] Member Subscriber Plan / Payer (Effective 2023-Present) Name: Sherry Moura Relation to Subscriber: Self Name: Sherry Moura Payer ID: [id number] (NAIC) Type: Not on file Address: [address] [id number] Health [id number] 31-55-8245Azaclcv Health [id number] 2..1.323087.3.57[id number] 2..1.762507.3.57[id number] 2..1.686799.3.57[id number] 2..1.131703.3.57[id number] 2.0.1.977991.3.57[id number] 2.0.1.436040.3.57[id number] 2..840.1.113278.3.57[id number] 2.16.840.1.628325.3.57[id number] 2..840.1.802305.3.57[id number] 2.16.840.1.856556.3.579.2.[id number] 1.2.840.451565.1.13.239.[id number] Social History DateTypeDetailFacilityStart: 06-20-2018 End: 28-41-9748Evhkjjx smoking status NHISNever smoked tobaccoBON Energy [employer] Phone: start: 06-20-2018 End: 99-99-5952Lwpozsh use and exposureSmokeless tobacco non-userB[employer] Energy [employer] Phone: start: 86-09-3034Iso Assigned At BirthNot on fileAmity Manufacturing Phone: start: 07-22-2024 End: 53-50-3899Lrnunzryo beverage intakeLifetime non-drinker (finding)[facility] SystemStart: 07-22-2024 End: 15-40-6776Xpyxvse of Social functionNOMS HealthcareStart: 07-22-2024 End: 19-68-6830Aoiuyof use panelNOMS HealthcareStart: 86-82-6555Uutssey Comment Caffeine: 1-2 cups/day coffeeNOMS HealthcareStart: 60-38-5301Ihq assigned at birthFemaleNOPR HealthcareStart: 20-09-6971Nlyncm identityIdentifies as female gender (finding)[facility] HealthcareHow often do you need to have someone help you when you read instructions, pamphlets, or other written material from your doctor or pharmacy [SILS]NeverNOMS HealthcareDo you belong to any clubs or organizations such as hoahaoism groups, unions, fraternal or athletic groups, or school groups?NoNOMS HealthcareAre you now , , , , never or living with a partner?MarriedNOMS HealthcareHow often to you have a drink containing alcohol?NeverN[facility]S HealthcareDo you feel stress - tense, restless, nervous, or anxious, or unable to sleep at night because yourmind is troubled all the time - these days [OSQ]Not at allNOMS Healthcare(I/We) worried whether (my/our) food would run out before (I/we) got money to buy more.Never trueNOMS HealthcareStart: 01-85-5260RplFckypi (finding) [facility] SystemTobacc smoking status NHISUnknown if ever smoked [facility] Work Phone: Clinical Notes 08-28-2022 to 07-07-2025 Note Date & AystNrumCiojzhvh99-50-6891 History of Present illness Narrative* Kenney Lorenzana, JAYDEN - 07/07/2025 4:30 PM EDT Images from the original note were not included. Subjective ?Quick Links Last Note in Specialty Snapshot Edit RFV/CC Edit Screenings [facility] Patient ID: Sherry Moura is a 40 y.o. female who presents for Alopecia. HPI History of Present Illness The patient presents for evaluation of reflux disease, lower back pain, hair loss, and postnasal drip. She has been experiencing persistent lower back pain for the past 8 to 9 months, which she believesstarted during her CrossFit training. The pain is localized to the middle of her lower back and does not radiate down her legs. It is particularly noticeable when she sits up straight or gets out of the car. She has taken Flexeril in the past. She has undergone x-rays and CT scans of her abdomen, which have not revealed any significant findings. She has been managing her constipation with MiraLAX and increased water intake, consuming ounces daily. She has been dealing with reflux disease and has tried various medications without success. She wasreferred to Dr. Mccray in 11/2024 for this issue. She recalls having an EGD and colonoscopy performedsimultaneously in the past. She was diagnosed with IBS following her colonoscopy, but her symptoms have improved with dietary changes and regular exercise. She occasionally experiences diarrhea. She has never taken omeprazole due to concerns about potential kidney damage from long-term use. She has noticed significant hair loss, particularly when showering or applying conditioner. Her hair is thinning at the ends but remains thick at the roots. Her hairdresser has also observed this change. She has not noticed any circular spots of missing hair but reports that sometimes her scalp is very sensitive and can be painful to touch. She is curious if her iron levels could be contributing to her hair loss. She has been experiencing postnasal drip and mouth drainage. She does not currently take any allergy medications but is considering starting them. She experienced eye itching last night and woke up this morning with hazy vision and feeling extremely tired. She has gained 7 pounds since 11/2024, which she attributes to muscle gain from working out and taking creatine. She has no libido. Dr. Whitaker, her INSTALLATION AND REPAIR TECHNICIAN, prescribed her Estrace to take a very low dose, but she is scared to take it because she is afraid it will make her feel funny. She is interested in checkingher estrogen level. She has had a hysterectomy and is no longer having periods. She had an ultrasound of her thyroid in 2021, which showed no cysts or nodules on her thyroid. PAST SURGICAL HISTORY: Hysterectomy EGD Colonoscopy Objective BP 132/86 Pulse 70 Temp 97.7 F Wt 161 lb SpO2 96% BMI 27.64 kg/m Physical Exam Vitals and nursing note reviewed. Constitutional: Appearance: Normal appearance. HENT: Head: Normocephalic and atraumatic. Nose: Nose normal. Mouth/Throat: Mouth: Mucous membranes are moist. Cardiovascular: Rate and Rhythm: Normal rate and regular rhythm. Heart sounds: Normal heart sounds. Pulmonary: Effort: Pulmonary effort is normal. No respiratory distress. Breath sounds: Normal breath sounds. No stridor. No wheezing, rhonchi or rales. Musculoskeletal: Lumbar back: No spasms, tenderness or bony tenderness. Normal range of motion. Negative right straight leg raise test and negative left straight leg raise test. Right lower leg: No edema. Left lower leg: No edema. Lymphadenopathy: Head: Right side of head: Tonsillar adenopathy present. Left side of head: Tonsillar adenopathy present. Skin: General: Skin is warm and dry. Neurological: General: No focal deficit present. Mental Status: She is alert and oriented to person, place, and time. Physical Exam Neck: Mild bilateral tonsillar lymphadenopathy, no significant thyroid enlargement. Respiratory: Clear to auscultation, no wheezing, rales or rhonchi. Cardiovascular: Regular rate and rhythm, no murmurs, rubs, or gallops. Musculoskeletal: Mild tenderness in the lower back, no radiation of pain to the legs. Assessment & Plan Gastroesophageal reflux disease with esophagitis without hemorrhage Orders: Ambulatory referral to Gastroenterology; Future Irritable bowel syndrome, unspecified type Orders: Ambulatory referral to Gastroenterology; Future Chronic bilateral low back pain without sciatica Orders: cyclobenzaprine (Flexeril) 10 MG tablet; Take 0.5 tablets (5 mg) by mouth at bedtime for 14 days Low libido Orders: FSH; Future Luteinizing hormone; Future Estradiol; Future Progesterone; Future Hair loss Orders: TSH W/REFLEX TO FT4; Future Ferritin; Future FSH; Future Luteinizing hormone; Future Estradiol; Future Progesterone; Future Assessment & Plan 1. Reflux disease: - She has been experiencing persistent reflux symptoms despite being on multiple medications. - A referral to gastroenterology will be made for further evaluation and management, including the possibility of an EGD and colonoscopy. 2. Lower back pain: - The pain could be due to arthritis or muscular issues, possibly related to previous activities such as CrossFit. - A prescription for Flexeril 10 mg, to be taken as half a tablet nightly as needed, will be provided. She is advised to avoid driving and alcohol consumption while on this medication. 3. Hair loss: - The hair loss could be attributed to hormonal changes associated with menopause. - Thyroid, iron, ferritin, FSH, LH, estradiol, and progesterone levels will be checked. If these levels are normal, a follow-up with dermatology is recommended. 4. Postnasal drip: - Omyu-osw-sjthmxe allergy medications such as Zyrtec, Hermila, or Claritin are recommended. 5. Weight gain: - She has gained 7 pounds since 11/2024, which she attributes to muscle gain from working out and taking creatine. 6. Low libido: - She has no libido. Dr. Whitaker, her INSTALLATION AND REPAIR TECHNICIAN, prescribed her Estrace to take a very low dose, but sheis scared to take it because she is afraid it will make her feel funny. She is interested in checking her estrogen level. She has had a hysterectomy and is no longer having periods. documented in this encounterWashington County Memorial HospitalXxreirjtjk50-16-9111 History of Present illness Narrative* GUTIERREZ Diaz - 05/29/2025 10:00 AM EDT Skin Check Location: Patient requests a skin examination from the waist up and legs Dermatologic history: history of atypical mole(s) Last visit: 03/21/2024 Lesions: Location: back Duration: years Quality: itchy Associated symptoms: non-healing Treatments: none Lesion # 2: Location: left chest Duration: years Quality: denies pain, denies itch, denies bleeding Associated symptoms: non-healing Treatments: none Lesion # 3: Location: left upper abdomen Duration: years Quality: denies pain, denies itch, denies bleeding Associated symptoms: non-healing Treatments: none Established patient All pertinent medical history, medications, and allergies were reviewed. General Exam: alert, oriented to person, place, and time, normal affect, well appearing Accompanied by spouse A complete skin exam was offered, pt declined. Areas not examined despite medical recommendation: From the waist down Scalp, Examined , exam limited by hair Head, Face Examined Neck Examined Chest Examined Back Examined Abdomen Examined Right arm Examined Left arm Examined Hands Examined Digits,nails: Examined Legs: Examined Lymphatics: Not examined Skin Exam 1. MULTIPLE BENIGN MELANOCYTIC NEVI OF BOTH UPPER EXTREMITIES, BOTH LOWER EXTREMITIES, AND TRUNK Generalized Mario to brown macules and papules with similar morphologic features Counseled regarding these benign growths. Rarely, a nevus can develop into malignant melanoma, so any changing nevi should be promptly re-evaluated. 2. LENTIGO SIMPLEX (2) Arms, Trunk Scattered mario macules in sun-exposed areas. The patient was informed that lentigines are benign pigmented lesions that occur on sun-exposed andsun-damaged skin. No treatment is necessary. Recommended regular use of broad spectrum sunscreen SPF 30 or higher 3. TINEA VERSICOLOR Torso - Posterior (Back) Multiple dyspigmentation macules and patches with fine scale. The patient was informed that tinea versicolor is a yeast infection of the skin that often occurs during warmer weather and can easily recur. It is easily treated with a topical or oral antifungal medication. Start Ketoconazole Shampoo, apply to affected areas and leave on for 2-3 minutes in the shower and rinse. Continue as maintenance treatment once clear. ketoconazole (NIZOral) 2 % shampoo - Torso - Posterior (Back) Lather on body, leave on 5 min before rinsing, 2-3 times a week, 30 day supply 4. HISTORY OF ATYPICAL NEVUS Right Forearm No evidence of recurrence in scar from atypical mole excision. Notify office for any recurrence at surgery site or for any new or changing lesions. Next Visit: 1 year, skin check documented in this encounterWashington County Memorial HospitalIxcnsdtbtc50-69-4416 History of Present illness Narrative* Kenzie De La Paz, DANITA - 02/17/2025 3:00 PM EDT Reason for Appointment: Patient ID: Sherry Moura [...] EXCISION 2010 Cervical Dysplasia SECTION, LOW TRANSVERSE 2009 COLONOSCOPY 2012 IBS EGD 2012 with biopsy [...] nursing note reviewed. Exam conducted with a accounting coordinator present. Vitals: Estimated body mass index is [...] of: Gabriel Whitaker DO documented in this encounterWashington County Memorial HospitalXtbdyfuysy87-57-1980 Miscellaneous Notes* Telephone Encounter - Kenna Leigh - 01/09/2025 11:00 AM EST Patient cancelled appointment with Suni Sim CNP via the automated reminder system on 01/08/25. I called Sherry in attempt to see if she would like to reschedule this appointment. A message was left on her voicemail to call the office back as I was unable to make contact. [facility] Telephone encounter Note* Telephone Encounter - Kenna Leigh - 01/09/2025 11:00 AM EST Patient cancelled appointment with Suni Sim CNP via the automated reminder system on 01/08/25. I called Sherry in attempt to see if she would like to reschedule this appointment. A message was left on her voicemail to call the office back as I was unable to make contact. [facility]02-04-2025 Telephone encounter Note* Telephone Encounter - Tamera Mccarthy MD - 12/23/2024 10:06 AM EST Approvals with refills [facility] HospitalHdwgaxqbbx16-50-8646 Miscellaneous Notes* Telephone Encounter - Tamera Mccarthy MD - 12/23/2024 10:06 AM EST Approvals with refills documented in this encounterWashington County Memorial HospitalWyoxikzaub87-87-2638 Telephone encounter Note* Telephone Encounter - Leda Doherty - 11/20/2024 9:02 AM EST Pt is scheduled for wellness 11/28/24 and is requesting a mammogram order be placed. She is going totry to schedule it with [facility] for the same day if possible. [facility] HospitalTykfprgrsb95-12-0979 Miscellaneous Notes* Telephone Encounter - Leda Doherty - 11/20/2024 9:02 AM EST Pt is scheduled for wellness 11/28/24 and is requesting a mammogram order be placed. She is going totry to schedule it with [facility] for the same day if possible. documented in this encounterWashington County Memorial HospitalPlvthtnsxt80-23-5374 History of Present illness Narrative* Kenzie De La Paz, DANITA - 07/22/2024 11:30 AM EDT Reason for Appointment: Patient ID: Sherry Moura [...] Past Medical History: Diagnosis Date Atypical nevi COVID-19 01/2021 Gastro-esophageal reflux disease without esophagitis [...] of HPV infection IBS (irritable bowel syndrome) 2013 Subclinical hyperthyroidism (CMS/HCC) Thyroid cyst (CMS/HCC) Social [...] nursing note reviewed. Exam conducted with a accounting coordinator present. Vitals: Estimated body mass index is [...] if patients questions answered and she expressed understanding.Advised to call in interim with questions or concerns. Follow Up: Patient is to return in 6 months for Repeat Pap. Documented by Kenzie De La Paz LPN on behalf of: Gabriel Whitaker DO documented in this encounterWashington County Memorial HospitalPbqurwmnym37-69-3111 History of Present illness Narrative* Suni Berkowitz, [employer]IONAL CONSULTANT - 02/08/2024 2:00 PM EDT Images from the original note were not [...] movement. She is in CrossFit. She reports painin her right upper and lower back. She was in the CT scan today and felt a pulling sensation in herabdomen when she raised her hands above her head. She has been taking OTC pain medication for this the past few days. She denies any nausea, vomiting, unintentional weight loss, diarrhea or rectal bleeding. She has dicyclomine at home which she has been taking with relief. Abdominal ultrasound from 06/21/2023 revealed possible tiny polyp or calculus within the gallbladder.It was otherwise unremarkable. CT abdomen and pelvis [...] Surgical History: Procedure Laterality Date COLONOSCOPY IN [facility] HYSTERECTOMY 12/2018December 2018 No Known Allergies Current Outpatient [...] gallbladder measuring around 3 mm, which may representtiny calculus or small polyp. Gallbladder otherwise unremarkable. [...] mass or pericolonic inflammation. No findings of acuteappendicitis. No free fluid or free air. Assessment [...] patient/family/caregiver Referring and communicating with other health day care provider Irritable bowel syndrome, unspecified type [K58.9] MIKO LINDSAY [facility] [place] This note was created with the assistance of a speech recognition program. While intending to generate a timely document that accurately reflects the content of the visit, no guarantee can be provided that every grammatical or spelling mistake has been or will be identified or corrected. Thank you for your understanding. MIKO Lindsay 02/11/24 1521 documented in this encounterFostoria City Hospital10-10-2022 NotePROCEDURE: [facility] VCT 64, 5 mm slice axial images [...] and signed by Kuldip Mccormick on 08/29/2022 0736[facility] SpecialistEvaluation note* Diagnosis LGSIL Pap smear of vagina Papanicolaou smear of vagina with low grade squamous intraepithelial lesion (LGSIL) H/O: hysterectomy Acquired absence of both cervix and uterus documented in this encounter [facility] HealthcareEvaluation note* Diagnosis Gastroesophageal reflux disease with esophagitis without hemorrhage documented in this encounter [facility] HealthcareEvaluation note* Diagnosis Irritable bowel syndrome, unspecified type- Primary Abdominal bloating Flatulence, eructation, and gas pain Gastroesophageal reflux disease, unspecified whether esophagitis present documented in this encounter [facility] SystemEvaluation note* Diagnosis LGSIL Pap smear of vagina Papanicolaou smear of vagina with low grade squamous intraepithelial lesion (LGSIL) H/O: hysterectomy Acquired absence of both cervix and uterus documented in this encounter [facility] HealthcareEvaluation note* Diagnosis Multiple benign melanocytic nevi of both upper extremities, both lower extremities, and trunk- Primary Lentigo simplex Other dyschromia Tinea versicolor Pityriasis versicolor History of atypical nevus documented in this encounter [facility] HealthcareEvaluation note* Diagnosis Gastroesophageal reflux disease with esophagitis without hemorrhage- Primary Irritable bowel syndrome, unspecified type Chronic bilateral low back pain without sciatica Low libido Hair loss Unspecified alopecia documented in this encounter [facility] HealthcareEvaluation note* Diagnosis Onset Date Resolution Status Admit Date Bloating acuteOctober 2024 3:05pmGERD (gastroesophageal reflux disease)acuteOctober 2024 3:05pmIBS (irritable bowel syndrome)acuteOctober 2024 3:05pm [facility] Work Phone: InstructionsNot on filedocumented in this encounter [facility] SystemInstructionsNot on filedocumented in this encounter [facility] SystemReason for referral (narrative)No reason for referral information availableSouthern Ohio Medical Center Work Phone: Summary Purpose Family History No Family History Records FoundNo Family History Records FoundNo Family History Records FoundNo Family History Records FoundNo Family History Records Found Advance Directives Advance Directive Response Recorded Date/ Time Advance Directives No July 09, 2025 1:29pm Chief Complaint and Reason for Visit Chief Complaint Admit Date Refer: IBS, GERD September 17, 2025 3 :05pm Reason for Visit Admit Date Bloating September 17, 2025 3 :05pm GERD (gastroesophageal reflux disease) O ctober 2024 3:05pm IBS (irritable bowel syndrome) August 212024 3:05pm Additional Source Comments Care Teams (unrecognized sec tion and content) Team MemberRelationshipSpecialtyStart DateEnd Date Tamera Mccarthy MD [address] [place], [place] [id number] PCP - General06/20/18Team MemberRelationshipSpecialtyStart DateEnd Date Tamera Mccarthy MD [address] [place], [place] [id number] PCP - [facility]03/27/23Team MemberRelationshipSpecialtyStart DateEnd Date Tamera Mccarthy MD [address] [place], [place] [id number] PCP - GeneralFamily Medicine03/27/23Team MemberRelationshipSpecialtyStart DateEnd Date Tamera Mccarthy MD [address] [place] [address] PCP - GeneralFamily Medicine03/27/23am MemberRelationshipSpecialtyStart DateEnd Date Tamera Mccarthy MD [address] [place] [address] PCP - GeneralFamily Medicine03/27/23am MemberRelationshipSpecialtyStart DateEnd Date Tamera Mccarthy MD [address] [place] [address] PCP - GeneralFamily Medicine02/08/24Team MemberRelationshipSpecialtyStart DateEnd Date Tamera Mccarthy MD PCP - GeneralFamily Medicine02/08/24Team MemberRelationshipSpecialtyStart DateEnd Date Tamera Mccarthy MD [address] [place] [address] PCP - GeneralFamily Medicine03/27/23Team MemberRelationshipSpecialtyStart DateEnd Date Tamera Mccarthy MD [address] [place] [address] PCP - GeneralFamily Medicine03/27/23Team MemberRelationshipSpecialtyStart DateEnd Date Tamera Mccarthy MD [address] [place] [address] PCP - GeneralFamily Medicine03/27/23Team MemberRelationshipSpecialtyStart DateEnd Date Tamera Mccarthy MD [address] [place] [address] PCP - [facility]03/27/23Team MemberRelationshipSpecialtyStart DateEnd Date Tamera Mccarthy MD [address] [place] [address] PCP - [facility]03/27/23 Team Status: Active Member Role/Relationship Status Dates Tamera Mccarthy MD Primary Care Provider Active Team Status: Active Member Role/Relationship Status Dates Tamera Mccarthy MD Primary Care Provider Active Sta rt: July 27, 2025 [facility]Z [facility] ProviderActiveStart: July 27, 2025 Team Status: Inactive Member Role/Relationship Status Dates Tamera Mccarthy MD Primary Care Provider Active Sta rt: September 17, 2025 End: September 17kathleen Delgadillo MDAttyen ProviderActiveStart: September 17, 2025 End: September 17, 2025 INFORMATION SOURCE (unrecogn ized section and content) DATE CREATED AUTHOR 11/21/2022 [facility] DATE CREATED AUTHOR AUTHOR'S ORGANIZ ATION 01/18/2023 [facility] DATE CREATED AUTHOR AUTHOR'S ORGANIZ ATION 02/10/2024 [facility] DATE CREATED AUTHOR AUTHOR'S ORGANIZ ATION 05/02/2024 [facility] DATE CREATED AUTHOR AUTHOR'S ORGANIZ ATION 07/09/2025 [facility] EPIC Reason for Visit (unrecogniz ed section and content) ReasonCommentsAbnormal Pap SmearPt present today for a Colposcopy. Pt had a LGSIL pap on 06/24/2024.ReasonCommentsMed Change RequestReasonCommentsBOWEL CHANGESIBS , REFERRED BY GORDON ROGERS CRYSTALIZER, PT HAS UHCBloatedAbdominal PainHeartburnSpecialtyDiagnoses / ProceduresReferred By ContactReferred To ContactGeneral Surgery Diagnoses Irritable bowel syndrome, unspecified type Procedures ID OFFICE OUTPATIENT VISIT 60-74 MINS HIGH MDM AMB REFERRAL TO GENERAL SURGERY Gordon Rogers, PROGRESS DEVELOPER-MARKETING REGIONAL CONSULTANT [address] [place] [address] Brody Mccray MD [address] [place] [address] Referral IDStatusReasonStart DateExpiration DateVisits RequestedVisits [id number] Pap SmearPt present today for a repeat pap smear. Pt had a LGSIL on 06/24/2024. ReasonCommentsSkin CheckSuspicious Skin LesionReasonCommentsAlopecia Goals (unrecognized section and content) Goals may be documented in a n alternate section FOR RECORDS PERTAINING TO PATIENTS WHO ARE [...] BE BASED ON THE PRIMARY CLINICAL RECORDS. [facility]. provides no warranty or guarantee of the accuracy or completeness of information in this document.
--- OUTSIDE RECORDS SUMMARY | 2025-09-29 19:48 | XMS_ITS | Clinical Summary ---
Author Organization [facility] Address [address] [place] [address] Care Team Providers Care Java Web User Interface Developer Name Role Phone Tamera Mccarthy MD Primary Care Provider [phone] Allergies No known active allergies Medications MedicationSigDispense QuantityRefillsLast FilledStart DateEnd DateStatus calcium carbonate (Tums) 250 mg ([place] 100 mg) chewable split tablet Take 200 mg by mouth in the morning.Active ketoconazole (NIZOral) 2 % shampoo Indications:Tinea versicolorLather on body, leave on 5 min before rinsing, 2-3 times a week, 30 day supply 120 mL 1105Active estradiol (Estrace) 0.5 MG tablet Indications:H/O: hysterectomy,Decreased libidoTake 1 tablet (0.5 mg) by mouth Daily Take 1 tablet by mouth for 30 days 30 tablet 5Active omeprazole (PriLOSEC) [address] capsule Take 40 mg by mouth in the morning. Take before meals.5Active dicyclomine (Bentyl) 10 MG capsule Discontinued cyclobenzaprine (Flexeril) 10 MG tablet Indications:Chronic bilateral low back pain without sciaticaTake 0.5 tablets (5 mg) by mouth at bedtime for 14 days 7 tablet Discontinued Active Problems ProblemNoted DateDiagnosed WyigXuclrcf27/17/2023ilateral psfqgtbvi94/17/2023 Cervical wozmvyfjj34/17/2023Cyst of qxnipqv4307/05/2023astritis, bile acid reflux 07/05/2023H/O: kxirkfbcloqt00/17/2023Irregular lvszke8307/05/2023Lesion of skin of crbrhv1907/05/2023LPRD (laryngopharyngeal reflux disease)07/05/2023Nontoxic single thyroid xfzxcq7407/05/2023Obsessive compulsive /17/2023Other chronic pain07/05/2023ain of fblnir4107/05/2023apanicolaou smear of vagina with low grade squamous intraepithelial lesion (LGSIL)07/05/2023haryngoesophageal ukkczjysw21/17/2023Reduced frhhdi4507/05/2023Subclinical bdzpigomurqsftq66/17/2023 TMJ rtoisrims10/17/2023Slow transit fwnmjunpoegz90/19/2023 Encounters DateTypeDepartmentCare UfeiSamygioyfqv56/11/2025 2:30 PM ESTOffice Visit [facility] [address] [place] [address] [place] [address] Gabriel Whitaker, DO Well woman exam with routine gynecological exam; H/O: hysterectomy; Breast cancer screening by wazsedxlx05/11/2025amboo flowsheet [facility] [address] [place] [address] [place] [address] Gabriel Whitaker, DO 09/23/20258367Iidbio76/13/2025Telephone [facility] [address] [place] [address] Gabriel Whitaker, DO 07/13/2025Results Follow-Up [facility] [address] [place] [address] Linda Olson NP TSH W/REFLEX TO FT4, Ferritin, FSH, Additional followed-up results: 4:30 PM EDTOffice Visit [facility] [address] [place] [address] Majors, Linda, INTELLIGENCE RESEARCH SPECIALIST Gastroesophageal reflux disease with esophagitis without hemorrhage (Primary Dx); Irritable bowel syndrome, unspecified type; Chronic bilateral low back pain without sciatica; Low libido; Hair loss07/07/2025amboo flowsheet [facility] [address] [place] [address] Linda Olson NP 07/07/2025Travelfrom Last 3 Months Family History Medical HistoryRelationNameCommentsDiabetesMotherBelinda LoganMelanomaMother's BrotherCeliac diseaseOtherColon cancerOtherColonic polypOtherCrohn's disease OtherUlcerative colitisOtherMental illnessPaternal GrandfatherRelationNameStatus CommentsFatherAliveMotherBelinda LoganAliveMother's BrotherOtherPaternal GrandfatherSonAlive Social History Tobacco UseTypesPacks/DayYears UsedDateSmoking Tobacco: NeverSmokeless Tobacco: Never Tobacco Cessation:Counseling Given: Not Answered Alcohol UseStandard Drinks/WeekCommentsNever0 (1 standard drink = 0.6 oz pure alcohol)Caffeine: 1-2 cups/day vdtvdaE1109 Health LiteracyAnswerDate RecordedHow often do you need to have someone help you when you read instructions, pamphlets, or other written material from your doctor or pharmacy?Never 12/06/2024Social Connection and Isolation PanelAnswerDate RecordedIn a typical week, how many times do you talk on the phone with family, friends, or neighbors?Twice a week12/06/2024How often do you get together with friends or relatives?Twice a week12/06/2024How often do you attend scientology or anabaptist services?1 to 4 times per year12/06/2024Do you belong to any clubs or organizations such as scientology groups, unions, fraternal or athletic groups, or school groups?No12/06/2024How often do you attend meetings of the clubs or organizations you belong to?Never12/06/2024re you , , , , never , or living with a partner?Ctixavi1912/06/2024UDIT-C AnswerDate RecordedQ1: How often do you have [...] medical care, and heating?Not hard at all12/06/2024 [facility] [place] of Occupational Health - Occupational Stress Questionnaire [...] were you homeless or living in a care home (including now)?No12/06/2024CommentsNoSex and Gender Information ValueDate RecordedSex Assigned at MkzurUstmkw91/02/2023 8:22 AM EDTLegal Sex Vzpdia0201/31/2023 7:18 PM EDTGender WdwbiafiHjuenr86/02/2023 8:22 AM EDTSexual OrientationNot on file Last Filed Vital Signs Vital SignReadingTime TakenCommentsBlood Lqewkdsn488/8609/29/2025 2:42 PM EST Grukq443407/07/2025 4:36 PM RTFJtnsdjxzzsf93.5 ??C (97.7 ??F)07/07/2025 4:36 PM EDTRespiratory Rate--Oxygen Ipdrvggzlb96%07/07/2025 4:36 PM EDTInhaled Oxygen Concentration--Vbpnga47 kg (158 lb 12.8 oz)09/29/2025 2:42 PM MMCZtmnly502.6 cm (5' 4 )06/24/2024 12:10 PM EDTBody Mass Index27.26006/24/2024 12:10 PM EDT Plan of Treatment DateTypeDepartmentCare Team (Latest Contact Info)Vqiaeyryzez77/10/2026 10:00 AM EDTOffice Visit [facility] [place] [facility] [address] [place] [phone] Elaina Rdz PA [address] [place] [address] 10/25/2026 4:00 PM ESTProcedure Visit [facility] [address] [place] [address] Gabriel Whitaker DO [address] [place], [place] [id number] Health MaintenanceDue DateLast DoneCommentsCOVID-19 Vaccine ( season) Influenza Vaccine (#1)/06/2023, 10/06/2022, 09/06/2021, Additional history whyigmFyicszxbf97, 11/22/2023, 11/17/2022, Additional history existsHPV/DzcwwyWpwzvxykuvms65/16/2024ervical Cancer ScreeningDiscontinuedPap WzdztZpzvvdlxvnki79/01/2025, 06/24/2024, 12/04/2023, Additional history existsPneumococcal Vaccine: Pediatrics (0 to 5 Years) and At-Risk Patients (6 to 64 Years)Aged OutNo longer eligible based on patient's age to complete this topic Procedures Procedure NamePriorityDate/TimeAssociated DiagnosisCommentsPROGESTERONERoutine 07/10/2025 12:08 PM EDT Low libido Hair loss NUWLNQSFLHzmhisw95/22/2025 12:08 PM EDT Low libido Hair loss VTUmswhal73/22/2025 12:08 PM EDT Low libido Hair loss ODMCbtzkxn90/22/2025 12:08 PM EDT Low libido Hair loss DWZUICGYNmaaxef67/22/2025 12:08 PM EDT Hair loss TSH W/REFLEX TO QS1Grjcpag62/22/2025 12:08 PM EDT Hair loss PAP YBNJUMrqiycy47/01/2025 12:00 AM EDTBI MAMMOGRAM SCREENING TOMOSYNTHESIS QZSWOLOYJIwwwxpn56/24/2025 11:48 AM EST Encounter for screening mammogram for malignant neoplasm of breast THIN PREP TIS PAP AND HR HPV SQTHyaioyh78/16/2024 3:10 PM EST ASCUS of cervix with negative high risk HPV from Last 3 Months or Most Recently Relevant to Health Maintenance Results * TSH W/REFLEX TO FT4 (07/10/2025 12:08 PM EDT)ComponentValueRef RangeTest MethodAnalysis TimePerformed AtPathologist SignatureTSH W/REFLEX TO FT41.05 mIU/LQUESTComment: ?Reference Range ? > or = 20 Years 0.40-4.50 ? Ranges ?First trimester ?0.26-2.66 ?Second trimester ?? 0.55-2.73 ?Third trimester ?0.43-2.91 Specimen (Source)Anatomical Location / LateralityCollection Method / Volume Collection TimeReceived Time07/10/2025 12:08 PM EDT07/10/2025 12:09 PM EDT Narrative Resulting Agency Comment Performing Organization Information ?Site ID: QPT ?Name: [facility] ?Address: [address] [place], [place] [address] , [address] [place] [phone] ?Director: Jamal Scherer MD Authorizing ProviderResult TypeResult StatusBreann Majors NPLAB BLOOD ORDERABLES Final ResultPerforming OrganizationAddressCity/State/[facility] CodePhone Number QUEST * Progesterone (07/10/2025 12:08 PM EDT)ComponentValueRef RangeTest Method Analysis TimePerformed AtPathologist SignaturePROGESTERONE1.1ng/mLQUEST Comment: ?Reference Ranges ? Female Follicular Phase < 1.0 ?Luteal Phase ?2.6-21.5 Post menopausal < 0.5 ?1st Trimester ? 4.1-34.0 ?2nd Trimester ?24.0-76.0 ?3rd Trimester ?? 52.0-302.0 Specimen (Source)Anatomical Location / LateralityCollection Method / Volume Collection TimeReceived TimeBloodVenous blood specimen / Mkgoave7407/10/2025 12:08 PM EDT07/10/2025 12:09 PM EDT Narrative Resulting Agency Comment Performing Organization Information ?Site ID: QPT ?Name: [facility] ?Address: [address] , [address] [place] [address] ?Director: Jamal Scherer MD Authorizing ProviderResult TypeResult StatusA[facility] NPLAB BLOOD ORDERABLES Final ResultPerforming OrganizationAddressCity/State/ZIP CodePhone Number MATEO * Estradiol (07/10/2025 12:08 PM EDT)ComponentValueRef RangeTest MethodAnalysis TimePerformed AtPathologist RtyxznjcvHCHQDWNLK323bf/mLQUESTComment: ?Reference Range ?Follicular Phase: ?19-144 ?Mid-Cycle: ? 64-357 ?Luteal Phase: ?56-214 Postmenopausal: < or = 31 ? Reference range established on post-pubertal patient population. No pre-pubertal reference range established using this assay. For any patients for whom low Estradiol levels are anticipated (e.g. males, pre-pubertal children and hypogonadal/post-menopausal females), the [facility] Estradiol, Ultrasensitive, LCMSMS assay is recommended (order code 62341). ?? Please note: patients being treated with the drug fulvestrant (Faslodex(R)) have demonstrated significant interference in immunoassay methods for estradiol measurement. The cross reactivity could lead to falsely elevated estradiol test results leading to an inappropriate clinical assessment of estrogen status. [facility] order code 86613-Hqqdyeaww, Ultrasensitive LC/MS/MS demonstrates negligible cross reactivity with fulvestrant. Specimen (Source)Anatomical Location / LateralityCollection Method / Volume Collection TimeReceived TimeBloodVenous blood specimen / Poooqoj4507/10/2025 12:08 PM EDT07/10/2025 12:09 PM EDT Narrative Resulting Agency Comment Performing Organization Information ?Site ID: QPT ?Name: [facility] ?Address: [address] , [address] [place] [address] ?Director: Jamal Scherer MD Authorizing ProviderResult TypeResult StatusA[facility] Te[facility]ots NPLAB BLOOD ORDERABLES Final ResultPerforming OrganizationAddressCity/State/ZIP CodePhone Number QUEST * Luteinizing hormone (07/10/2025 12:08 PM EDT)ComponentValueRef RangeTest MethodAnalysis TimePerformed AtPathologist DehgorborQF42.4mIU/mLQUESTComment: ? Reference Range ? Follicular Phase ??1.9-12.5 ? Mid-Cycle Peak ?8.7-76.3 ? Luteal Phase ?0.5-16.9 ? Postmenopausal ?10.0-54.7 Specimen (Source)Anatomical Location / LateralityCollection Method / Volume Collection TimeReceived TimeBloodVenous blood specimen / Qbdjmps5707/10/2025 12:08 PM EDT07/10/2025 12:09 PM EDT Narrative Resulting Agency Comment Performing Organization Information ?Site ID: QPT ?Name: [facility] ?Address: [address] [place] [address], [address] [place] [phone] ?Director: Jamal Scherer MD Authorizing ProviderResult TypeResult StatusBreann Majors NPLAB BLOOD ORDERABLES Final ResultPerforming OrganizationAddressCity/State/ZIP CodePhone Number [facility]ST * FSH (07/10/2025 12:08 PM EDT)ComponentValueRef RangeTest MethodAnalysis Time Performed AtPathologist JkbkphijuNGT10.0mIU/mLQUESTComment: ?Reference Range ? Follicular Phase ? 2.5-10.2 ? Mid-cycle Peak ? 3.1-17.7 ? Luteal Phase ? 1.5- 9.1 ? Postmenopausal ? 23.0-116.3 ? Specimen (Source)Anatomical Location / LateralityCollection Method / Volume Collection TimeReceived TimeBloodVenous blood specimen / Fptlnxp4607/10/2025 12:08 PM EDT07/10/2025 12:09 PM EDT Narrative Resulting Agency Comment Performing Organization Information ?Site ID: QPT ?Name: [facility] ?Address: [address] [place] [address], [address] [place], [place] [id number] ?Director: Jamal Scherer MD Authorizing ProviderResult TypeResult StatusLa Paz Regional Hospital NPLAB BLOOD ORDERABLES Final ResultPerforming OrganizationAddressty/State/ZIP CodePhone Number QUEST * Ferritin (07/10/2025 12:08 PM EDT)ComponentValueRef RangeTest MethodAnalysis TimePerformed AtPathologist PjilwwawmIUPJEGKE8673 - 232 ng/mLQUESTSpecimen (Source)Anatomical Location / LateralityCollection Method / VolumeCollection TimeReceived TimeBloodVenous blood specimen / Xsqgphb9207/10/2025 12:08 PM EDT 07/10/2025 12:09 PM EDT Narrative Resulting Agency Comment Performing Organization Information ?Site ID: QPT ?Name: [facility] ?Address: [address] [place] [address], [address] [place] [address] ?Director: Jamal Scherer MD Authorizing ProviderResult TypeResult StatusLa Paz Regional Hospital NPLAB BLOOD ORDERABLES Final ResultPerforming OrganizationAddressCity/State/ZIP CodePhone Number QUEST * Pap Smear (02/17/2025 12:00 AM EDT)Specimen (Source)Anatomical Location / LateralityCollection Method / VolumeCollection TimeReceived TimeSwabCervical swab / Unknown Narrative Authorizing ProviderResult TypeResult StatusFazio Nurse [facility] ObLAB CYTOLOGY ORDERABLESFinal ResultPerforming OrganizationAddressCity/State/ZIP CodePhone Number EXTERNAL LAB * Bilateral screening mammogram with tomosynthesis (12/12/2024 11:48 AM EST) Anatomical RegionLateralityModalityBreastBilateralMammographySpecimen (Source) Anatomical Location / LateralityCollection Method / VolumeCollection Time Received Time12/15/2024 10:53 AM EST Impressions 12/15/2024 11:00 AM EST Impression: No specific evidence of malignancy seen in either breast. BIRADS 2 - Benign Findings DENSITY: The breasts are heterogeneously dense, which may obscure small masses. FOLLOW-UP: Routine Screening Mammogram ELECTRONICALLY SIGNED BY: Indra Cerna M.D. Narrative 12/15/2024 11:00 AM EST Examination: BI MAMMOGRAM SCREENING TOMOSYNTHESIS BILATERAL Clinical History: Screening Technique: Screening digital mammography study of both breasts was performed with 2-D and 3-D tomosynthesis imaging. Study was compared to the prior exam dated 11/22/2023. Findings: There is no evidence of interval dominant spiculated mass, grouped microcalcifications, or skin thickening which would be suggestive of malignancy. ?? Procedure Note Indra Cerna MD - 12/15/2024 Examination: BI MAMMOGRAM SCREENING TOMOSYNTHESIS BILATERAL Clinical History: Screening Technique: Screening digital mammography study of both breasts wasperformed with 2-D and 3-D tomosynthesis imaging. Study was compared tothe prior exam dated 11/22/2023. Findings: There is no evidence of interval dominant spiculated mass,grouped microcalcifications, or skin thickening which would be suggestiveof malignancy. IMPRESSION: Impression: No specific evidence of malignancy seen in either breast. BIRADS 2 - Benign Findings DENSITY: The breasts are heterogeneously dense, which may obscure smallmasses. FOLLOW-UP: Routine Screening Mammogram ELECTRONICALLY SIGNED BY: Indra Cerna M.D. Authorizing ProviderResult TypeResult Rehana OLVERA BI PROCEDURES Final Result * THIN PREP TIS PAP AND HR HPV DNA (12/04/2023 3:10 PM EST)Specimen (Source) Anatomical Location / LateralityCollection Method / VolumeCollection Time Received SrhoLxit95/16/2024 3:10 PM EST Narrative Authorizing ProviderResult TypeResult StatusCorey Julianne DOLAB CYTOLOGY ORDERABLESFinal ResultPerforming OrganizationAddressCity/State/ZIP CodePhone Number EXTERNAL LAB from Last 3 Months or Most Recently Relevant to Health Maintenance [place] [address] Care Teams Team MemberRelationshipSpecialtyStart DateEnd Date Tamera Mccarthy MD [address] [facility] [place] [address] PCP - GeneralFamily Medicine03/27/23
--- OUTSIDE RECORDS SUMMARY | 2025-09-29 19:48 | XMS_ITS | Encounter Summary ---
Author Organization [facility] Address [address] [place] [address] Care Team Providers Care Group Chief Operator Name Role Phone Tamera Mccarthy MD Primary Care Provider Encounter Details DateTypeDepartmentCare Team (Latest Contact Info)Calfmqlpmcc42/11/2025amboo flowsheet [facility] [address] [place] [id number] Gabriel Whitaker DO [address] [place], [facility] Social History Tobacco UseTypesPacks/DayYears UsedDateSmoking Tobacco: NeverSmokeless Tobacco: NeverAlcohol UseStandard Drinks/WeekCommentsNever0 (1 standard drink = 0.6 oz pure alcohol)Caffeine: 1-2 cups/day gslvxeD1985 Health LiteracyAnswerDate RecordedHow often do you need [...] relatives?Twice a week12/06/2024How often do you attend methodist or latter-day services?1 to 4 times per year12/06/2024Do you belong to any clubs or organizations such as methodist groups, unions, fraternal or athletic groups, or school groups?No12/06/2024How often do you attend meetings of the clubs or organizations you belong to?Never12/06/2024re you , , , , never , or living with a partner?Nduubqg9612/06/2024UDIT-C AnswerDate RecordedQ1: How often do you have [...] medical care, and heating?Not hard at all12/06/2024 [facility] of Occupational Health - Occupational Stress Questionnaire [...] were you homeless or living in a senior care (including now)?No12/06/2024CommentsNoSex and Gender Information ValueDate RecordedSex Assigned at BzbvaZrygtc38/02/2023 8:22 AM EDTLegal Sex Sgfbhe4501/31/2023 7:18 PM EDTGender PvlwehpkUeuwjy84/02/2023 8:22 AM EDTSexual OrientationNot on filedocumented as of this encounter Plan of Treatment DateTypeDepartmentCare Team (Latest Contact Info)Nqswvefkqij97/10/2026 10:00 AM EDTOffice Visit [facility] [place] [facility] [address] [place] [address] Elaina Rdz PA [address] [place] [address] 10/25/2026 4:00 PM ESTProcedure Visit [facility] [place] [facility] [address] [place] [address] Gabriel Whitaker DO [address] [place] [address] documented as of this encounter Visit Diagnoses Not on filedocumented in this encounter Care Teams Team MemberRelationshipSpecialtyStart DateEnd Date Tamera Mccarthy MD [address] [place] [address] PCP - GeneralFamily Medicine03/27/23documented as of this encounter
--- OUTSIDE RECORDS SUMMARY | 2025-09-29 19:48 | XMS_ITS | Clinical Summary ---
Author Organization [facility] Address [address], [address] [place] [address] Care Team Providers Care Intern Name Role Phone Tamera Mccarthy MD Primary Care Provider [phone] Allergies No known active allergies Medications MedicationSigDispense QuantityRefillsLast FilledStart DateEnd DateStatus Baclofen 5 MG TABS Indications:Arthralgia of left temporomandibular jointTake 5 mg by mouth nightly as needed (spasm) 20 tablet 06/20/2018Active baclofen (LIORESAL) 20 MG tablet Take 1 tablet by mouth 2 times daily 20 tablet 03/16/2019Active Immunizations ImmunizationAdministration DatesNext DueInfluenza Virus Bxvivdu1309/06/2021, 09/19/2019,08/29/2018 Social History Tobacco UseTypesPacks/DayYears UsedDateSmoking Tobacco: NeverSmokeless Tobacco: NeverCommentsNoSex and Gender InformationValueDate RecordedSex Assigned at BirthNot on fileLegal AmeHslxqb38/26/2017 6:13 PM EDTGender IdentityNot on fileSexual OrientationNot on file Last Filed Vital Signs Vital SignReadingTime TakenCommentsBlood Wvfcfmhq652/8708 4:38 PM EDT Uwane5781 4:38 PM RPDUfmfkujxcis16.6 ??C (97.8 ??F)06/20/2018 4:38 PM EDTRespiratory Oznc9870 4:38 PM EDTOxygen Saturation--Inhaled Oxygen Concentration--Ulxwpl86.5 kg (151 lb)06/11/2020 11:59 AM VGSLxpipj831.6 cm (5' 4 )06/20/2018 4:38 PM EDTBody Mass Index25.9206/20/2018 4:38 PM EDT Plan of Treatment Health MaintenanceDue DateLast DoneCommentsDepression Bhjcij4602/01/1995Varicella vaccine (1 of 2 - 13+ 2-dose series)02/02/1996HIV zhzvhj5202/01/1998Hepatitis C wxaybs7402/01/2001Hepatitis B vaccine (1 of 3 - 19+ 3-dose series)2002Pap smear02/02/2004Cervical cancer xstzys4902/01/2013HPV (without or with Pap) 2013Flu vaccine (#1)/, 09/19/2019, 08/29/2018COVID-19 Vaccine ( - season)2025reast cancer fdltoe19601/02/2024, 11/17/2022, 11/09/2021, Additional history bktvljScjnyw06/27/202909/, 07/31/2023, 07/08/2021, Additional history existsDTaP/Tdap/Td vaccine (2 - Td or Tdap)HPV vaccine (No Doses Required)CompletedHepatitis A vaccineAged OutNo longer eligible based on patient's age to complete this topic Hib vaccineAged OutNo longer eligible based on patient's age to complete this topicMeningococcal (ACWY) vaccineAged OutNo longer eligible based on patient's age to complete this topicMeningococcal B vaccineAged OutNo longer eligible based on patient's age to complete this topicPneumococcal 0-49 years VaccineAged OutNo longer eligible based on patient's age to complete this topicPolio vaccine Aged OutNo longer eligible based on patient's age to complete this topic Procedures Procedure NamePriorityDate/TimeAssociated DiagnosisCommentsBE WELL HEALTH SCREEN Gpqfqlt2608/15/2024 7:00 AM EDT from Last 3 Months or Most Recently Relevant to Health Maintenance Results * Be Well Health Screen (08/15/2024 7:00 AM EDT)ComponentValueRef RangeTest MethodAnalysis TimePerformed AtPathologist RlenfhpjgJdwqare2373 - 99 mg/dL 08/15/2024 7:00 AM [facility] LABCholesterol, Bzxgx5438 - 199 mg/dL08/15/2024 7:00 AM EDTMERCY LABORATORIESComment: Cholesterol Guidelines: <200 Desirable 200-240 ??Borderline >240 Undesirable HDL66>40 mg/dL08/15/2024 7:00 AM EDTMERCY LABORATORIESComment: HDL Guidelines: <40 Undesirable 40-59 ?Borderline >59 Desirable LDL Pfkpwsbcqin655 - 100 mg/dL08/15/2024 7:00 AM EDTMERCY LABORATORIESComment: LDL Guidelines: <100 Desirable 100-129 ?? Near to/above Desirable 130-159 ?? Borderline >159 Undesirable Direct (measured) LDL and calculated LDL are not interchangeable tests. Chol/HDL Ratio2. 7:00 AM EDTMERCY DAMKHZWKHHZGChaogkajuxqzf78<150 mg/dL08/15/2024 7:00 AM EDTMERCY LABORATORIESComment: Triglyceride Guidelines: <150 Desirable 150-199 ??Borderline 200-499 ??High >499 Very high Based on AHA Guidelines for fasting triglyceride, August 2012. PPIC4bq/dL08/15/2024 7:00 AM EDTMERCY LABORATORIESPatient Fasting?YES08/15/2024 7:00 AM [facility] LABSpecimen (Source)Anatomical Location / LateralityCollection Method / VolumeCollection TimeReceived Time08/15/2024 7:00 AM EDT Narrative Authorizing ProviderResult TypeResult StatusMichael U Madi MDCHEMISTRY ORDERABLESFinal ResultPerforming OrganizationAddressCity/State/ZIP CodePhone Number [facility] [address] [place] [address], [facility] [phone] [facility] [address] [place] [address], [facility] [phone] from Last 3 Months or Most Recently Relevant to Health Maintenance Insurance Care Teams Team MemberRelationshipSpecialtyStart DateEnd Date Tamera Mccarthy MD [address] [place] [address] PCP - General06/20/18
--- OUTSIDE RECORDS SUMMARY | 2025-09-29 19:48 | XMS_ITS | Clinical Summary ---
Author Organization [employer] Address [facility] [id number] [address] [place] [address] Care Team Providers Care Exhaust Equipment Operator Name Role Phone Tamera Mccarthy MD Primary Care Provider [phone] Allergies No known active allergies Medications MedicationSigDispense QuantityRefillsLast FilledStart DateEnd DateStatus calcium carbonate (TUMS) 200 mg elemental (500 mg) chewable tablet Chew 1 tablet (200 mg total) and swallow in the morning.Active dicyclomine (BENTYL) 10 mg capsule Indications:Irritable bowel syndrome, unspecified typeTake 1 capsule (10 mg total) by mouth 4 (four) times a day before meals and nightly. 60 capsule ctive Active Problems No known active problems Family History Medical HistoryRelationNameCommentsPancreatic cancerFatherMelanomaMaternal Uncle RelationNameStatusCommentsFatherAliveMaternal UncleDeceasedMotherAlive Social History Tobacco UseTypesPacks/DayYears UsedDateSmoking Tobacco: NeverSmokeless Tobacco: Never Tobacco Cessation:Counseling Given: Not Answered Alcohol UseStandard Drinks/WeekCommentsNever0 (1 standard drink = 0.6 oz pure alcohol)ChildcareAnswerDate QdqocfgmHfzfxkvnbFuetqma99/12/2019EmploymentAnswer Date BtnoxeycZgnfjrjcarAqdqtio55/12/2019Hunger ScreeningAnswerDate Recorded Within the past 12 months we worried whether our food would run out before we got money to buy more.Never True02/08/2024Within the past 12 months the food we bought just didn't last and we didn't have money to get more.Never True 02/08/2024CommentsUnknownSex and Gender InformationValueDate RecordedSex Assigned at BirthNot on fileLegal BgjFfvovl02/06/2015 11:58 AM EDTGender IdentityNot on fileSexual OrientationNot on file Last Filed Vital Signs Vital SignReadingTime TakenCommentsBlood Mcqbpljf401/8602/08/2024 1:37 PM EDT Pulse--Temperature--Respiratory Rate--Oxygen Saturation--Inhaled Oxygen Concentration--Mniudl42.4 kg (153 lb)02/08/2024 1:37 PM HQYQttjzr005.8 cm (5' 4.5 )02/08/2024 1:37 PM EDTBody Mass Index25.8602/08/2024 1:37 PM EDT Plan of Treatment Health MaintenanceDue DateLast DoneCommentsDepression Jwkzibsku96/16/1995Adult BMI Funvjcreh15Tobacco Dwrwbylnm33OVID-19 Vaccine ( - season)Influenza Cweuvwm2007/20/2025 09/26/2023, 10/06/2022, 09/06/2021, Additional history existsPap Smear06/24/2027 06/24/2024TaP,Tdap and Td Vaccines (2 - Td or Tdap) Medical Devices [place] [address] [place] [address] Care Teams Team MemberRelationshipSpecialtyStart DateEnd Date Tamera Mccarthy MD [facility]02/08/24
--- OUTSIDE RECORDS SUMMARY | 2025-09-29 19:48 | XMS_ITS | Encounter Summary ---
Author Organization [facility] Address [address] [place] [place] [address] Care Team Providers Care Victim Witness Administrator Name Role Phone Tamera Mccarthy MD Primary Care Provider [phone] Encounter Details DateTypeDepartmentCare Team (Latest Contact Info)Ltxhrecocwx81/05/2025Travel Social History Tobacco UseTypesPacks/DayYears UsedDateSmoking Tobacco: NeverSmokeless Tobacco: NeverAlcohol UseStandard Drinks/WeekCommentsNever0 (1 standard drink = 0.6 oz pure alcohol)Caffeine: 1-2 cups/day vkltkvB2185 Health LiteracyAnswerDate RecordedHow often do you need [...] relatives?Twice a week12/06/2024How often do you attend jew or latter day services?1 to 4 times per year12/06/2024Do you belong to any clubs or organizations such as jew groups, unions, fraternal or athletic groups, or school groups?No12/06/2024How often do you attend meetings of the clubs or organizations you belong to?Never12/06/2024re you , , , , never , or living with a partner?Mbsithn2812/06/2024UDIT-C AnswerDate RecordedQ1: How often do you have [...] medical care, and heating?Not hard at all12/06/2024 [employer] - Occupational Stress Questionnaire [...] were you homeless or living in a fpc (including now)?No12/06/2024CommentsNoSex and Gender Information ValueDate RecordedSex Assigned at UiawhZcdkme66/02/2023 8:22 AM EDTLegal Sex Jmcmtr2401/31/2023 7:18 PM EDTGender OdcxpdqyZdwuoe94/02/2023 8:22 AM EDTSexual OrientationNot on filedocumented as of this encounter Plan of Treatment DateTypeDepartmentCare Team (Latest Contact Info)Bttxyncjdjp42/10/2026 10:00 AM EDTOffice Visit [facility] [address] [place] [address] Elaina Rdz PA [address] [place] [address] 10/25/2026 4:00 PM ESTProcedure Visit [facility] [address] [place] [address] Gabriel Whitaker DO [address] [place] [address] documented as of this encounter Visit Diagnoses Not on filedocumented in this encounter Care Teams Team MemberRelationshipSpecialtyStart DateEnd Date Tamera Mccarthy MD [address] [place] [address] PCP - GeneralFamily Medicine03/27/23documented as of this encounter
== END 2025-09-29 19:45 | disposition home or self-care (01) ==
LOC: LAB 19:44
PROVIDERS: PCP Family Medicine; Visit Provider Obstetrics & Gynecology
DX: Z01.419 Encounter for gynecological examination (general) (routine) without abnormal findings (principal); Z90.710 Acquired absence of both cervix and uterus
CPT/HCPCS: 87624; 88175